=== PATIENT | male | born 1945 | race Caucasian/White ===

== ENCOUNTER → 2016-06-30 | Outpatient (CLI) | payer OTHER ==
[~2016-06-30] MED LIST: DYZ PO; LISI-461 PO
[2016-06-30 13:29] LABS: ESTIMATED AVERAGE GLUCOSE 140 mg/dl; HA1C FLAG Normal (Normal)
[2016-06-30 13:35] LABS: ALT/SGPT 48 U/L (12-78); AST/SGOT 50 U/L (15-37); BLOOD UREA NITROGEN 12 mg/dl (7-18); BUN/CREATININE RATIO 14.1 (10-20); CALCIUM 8.9 mg/dl (8.5-10.1); CARBON DIOXIDE 29 mmol/L (21-32); CHLORIDE 103 mmol/L (98-107); CREATININE 0.88 mg/dl (0.60-1.40); GLUCOSE 109 mg/dl (70-99); POTASSIUM 4.2 mmol/L (3.5-5.1); SODIUM 137 mmol/L (136-145)
[2016-06-30 13:38] LABS: ALB/GLOB RATIO 0.8 (0.9-2); ALKALINE PHOSPHATASE 136 U/L (45-117); CHOLESTEROL 159 mg/dl (0-200); CHOLESTEROL/HDL RATIO 4.3; HDL CHOLESTEROL 37 mg/dl; LDL CHOLESTEROL CALCULATED 94 mg/dl; TRIGLYCERIDES 139 mg/dl (0-150); VERY LOW DENSITY LIPOPROT CALC 28 mg/dl
== END | disposition home or self-care (01) ==
LOC: C.LABPVFM 09:15
PROVIDERS: ATTEND Nurse Practitioner
DX: E11.9 Type 2 diabetes mellitus without complications (principal); I10 Essential (primary) hypertension; E78.5 Hyperlipidemia, unspecified; Z11.59 Encounter for screening for other viral diseases

== ENCOUNTER → 2017-01-04 | Outpatient (CLI) | payer OTHER ==
[2017-01-04 13:15] LABS: ALT/SGPT 58 U/L (12-78); AST/SGOT 66 U/L (15-37); BLOOD UREA NITROGEN 11 mg/dl (7-18); BUN/CREATININE RATIO 14.3 (10-20); CALCIUM 8.8 mg/dl (8.5-10.1); CARBON DIOXIDE 23 mmol/L (21-32); CHLORIDE 106 mmol/L (98-107); CREATININE 0.79 mg/dl (0.60-1.40); GLUCOSE 118 mg/dl (70-99); POTASSIUM 4.2 mmol/L (3.5-5.1); SODIUM 137 mmol/L (136-145)
[2017-01-04 13:18] LABS: ALB/GLOB RATIO 0.8 (0.9-2); ALKALINE PHOSPHATASE 133 U/L (45-117)
[2017-01-04 14:20] LABS: ESTIMATED AVERAGE GLUCOSE 154 mg/dl; HA1C FLAG Normal (Normal)
== END | disposition home or self-care (01) ==
LOC: C.LABPVFM 09:02
PROVIDERS: ATTEND Nurse Practitioner Family
DX: E11.9 Type 2 diabetes mellitus without complications (principal); R74.8 Abnormal levels of other serum enzymes

== ENCOUNTER → 2017-07-05 | Outpatient (CLI) | payer OTHER ==
[2017-07-05 13:32] LABS: HEMOGLOBIN A1C 6.7 % (4.5-5.6)
[2017-07-05 13:52] LABS: ALBUMIN 3.6 gm/dl (3.4-5.0); BLOOD UREA NITROGEN 13 mg/dl (7-18); CALCIUM 9.1 mg/dl (8.5-10.1); CARBON DIOXIDE 24 mmol/L (21-32); CHOLESTEROL 150 mg/dl (0-200); CREATININE 0.88 mg/dl (0.60-1.40); GLUCOSE 115 mg/dl (70-99); POTASSIUM 4.2 mmol/L (3.5-5.1); SODIUM 137 mmol/L (136-145); URIC ACID 5.6 mg/dl (2.6-7.2)
[2017-07-05 13:58] LABS: ALKALINE PHOSPHATASE 106 U/L (45-117); ALT/SGPT 52 U/L (12-78); AST/SGOT 70 U/L (15-37); LDL CHOLESTEROL CALCULATED 88 mg/dl; TOTAL PROTEIN 7.5 gm/dl (6.4-8.2)
== END | disposition home or self-care (01) ==
LOC: C.LABPVFM 09:26
PROVIDERS: ATTEND Nurse Practitioner
DX: E11.9 Type 2 diabetes mellitus without complications (principal); E78.5 Hyperlipidemia, unspecified; E78.1 Pure hyperglyceridemia; I10 Essential (primary) hypertension; R74.8 Abnormal levels of other serum enzymes; M10.9 Gout, unspecified

== ENCOUNTER → 2017-07-31 | Outpatient (CLI) | payer OTHER ==
[2017-07-31 18:21] LABS: ALBUMIN 3.5 gm/dl (3.4-5.0); TOTAL PROTEIN 7.8 gm/dl (6.4-8.2)
== END | disposition home or self-care (01) ==
LOC: C.LABPVFM 15:22
PROVIDERS: ATTEND Nurse Practitioner
DX: R74.8 Abnormal levels of other serum enzymes (principal)

== ENCOUNTER 2022-06-18 11:40 | Inpatient (IN) ==
[2022-06-18] MEDS ORDERED: ACETAMINOPHEN 1,000 MG/100 ML VIAL IV STA (12:03)
[2022-06-18] MEDS ORDERED: SODIUM CHLORIDE 0.9% 500 ML IV ONE (12:03)
[2022-06-18] MEDS ORDERED: OPTIRAY 320 500ml IV ONE (12:26)
--- NOTE | 2022-06-18 12:27 | Emergency Department Note ---
Impression & Plan Complete heart block, Elevated troponin, Neck pain, Shortness of breath ED Provider Note NAME: LAKEISHA LEAL AGE: 76 SEX: M ARRIVES VIA: Walk-In INFORMANT: Patient ED PROVIDER(S): John Armstrong MD CHIEF COMPLAINT: Dizziness, neck/chest pain PLAN: Disposition: Admit MEDICAL DECISION MAKING: The patient is a pleasant 76-year-old gentleman with a past medical history of hypertension, diabetes who presents to the emergency department via walk-in, accompanied by his for evaluation of worsening lightheadedness and neck and chest pain in the setting of having mild cough and congestion over the past couple of weeks. He reports his neck pain and chest pain has been ongoing since shortly after his cough and has continued to worsen. He denies any acute wo rsening today but reports they were concerned due to the degree of his symptoms. He denies any fevers, nausea, vomiting or diarrhea. On arrival to triage, the patient's heart rate was noted to be in the 30s and while he was mentating well and appeared well blood pressure could not be obtained but upon arrival to the critical care bay did have a blood pressure in the 150s-60s. Respiratory rate within normal limits and O2 saturation 94% and greater on room air. EKG is consistent with third-degree/complete heart block with complete A-V dissociation. No overt ST elevation or depression. Limited bedside cardiac ultrasound was performed and there was no overt pericardial effusion. Complete A-V dissociation is also noted. I-STAT lab results demonstrate K of 4.4 and creatinine of 1.3. Given the patient's neck and chest pain with new complete heart block CTA imaging was ordered. Pressure and mentation remained stable and still initial medications or pacing was deferred. WBC and platelets within normal limits. H/H proximate to prior values. Chemistry without metabolic acidosis. Electrolytes and LFTs without significant abnormality. Initial high-sensitivity troponin 115, nonspecific in the setting of complete heart block which may have been present for over a week. Lipase is not elevated. Procalcitonin is not elevated. TSH is elevated at 5 however free T4 within normal limits. UA without convincing evidence of infection. CT of the head and CTA of the head and neck were performed and were negative for acute findings. CTA of the chest was performed and was negative for acute aortic pathology. Note is made of dilated pulmonary trunk measuring 51 mm in diameter. While patient remained hemodynamically stable given no reversible causes identified for the patient's complete heart block a trial of atropine was administered. This did result in very transient resolution of heart block lasting less than a minute before returning. Case was discussed with interventional cardiology, Dr. Jiménez. Appreciate consultation and recommendations and evaluation at the bedside. Patient was taken to the [facility] for transvenous pacer and heart catheterization. Case was discussed with Dr. Fong [facility] [place] hospitalist, who will evaluate the patient for admission. Triage Nursing notes reviewed and agree them. Prior/outside medical records reviewed Vital Signs: reviewed Differential diagnosis: Benign positional vertigo, dehydration, hypovolemia, anemia, tumor, infection, hypoglycemia, electrolyte abnormalities, cardiac sources, intracerebral event, toxicologic, neurologic, as well as other pathologies. ER treatment provided: See below. Diagnostics interpreted by me: ECG: Complete heart block with idioventricular rhythm, 34 bpm, no overt ST elevation or depression. Cardiac Monitoring: An order for continuous cardiac monitoring was placed and demonstrated Complete heart block with idioventricular rhythm, 34 bpm, PVCs. Laboratory studies: See below Imaging studies: See below Consultation(s): Dr. Jiménez, [place] Interventional cardiology. Dr. Fong [facility] [place] hospitalist. HPI: The patient is a pleasant 76-year-old gentleman with a past medical history of hypertension, diabetes who presents to the emergency department via walk-in, accompanied by his for evaluation of worsening lightheadedness and neck and chest pain in the setting of having mild cough and congestion over the past couple of weeks. He reports his neck pain and chest pain has been ongoing since shortly after his cough and has continued to worsen. He denies any acute worsening today but reports they were concerned due to the degree of his symptoms. He denies any fevers, nausea, vomiting or diarrhea. ROS: See above HPI for pertinent positives & negatives. A total of 10 systems reviewed and were otherwise negative. VITALS:See Below PHYSICAL EXAMINATION: GENERAL: Awake, alert, fatigued-appearing, in no distress HENT: Normocephalic, atraumatic. Oropharynx with dry mucous membranes and otherwise unremarkable. EYES: Normal conjunctiva. Sclera non-icteric. NECK: Supple. No nuchal rigidity. FROM. No JVD. Prominent thyroid. RESPIRATORY: Clear to auscultation. CARDIAC: Bradycardic rate, regular rhythm. Extremities warm and well perfused. Pulses equal. ABDOMEN: Soft, non-distended. No tenderness to palpation. No rebound or gu arding. No masses. RECTAL: Deferred. MUSCULOSKELETAL: Chest examination reveals no tenderness. The back is symmetrical on inspection without obvious abnormality. There is no CVA tenderness to palpation. No joint edema. LOWER EXTREMITIES: Calves are equal size bilaterally and non-tender. No edema. No discoloration. NEURO: Normal sensorium. No sensory or motor deficits noted. SKIN: No rash or jaundice noted. ED COURSE: Critical Care: I have personally spent greater than 75 minutes of critical care time in the direct management of this patient. This includes bedside care, interpretation of diagnostic studies, and testing, discussion with consultants, patient, and fa brittney members, and other required patient management activities. This 75 minutes is in excess of all separately billable procedures. 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 Family History Other No family history of adverse response to anesthesia Denies family history of Ovarian cancer Prostate cancer Myocardial infarction Breast cancer Colorectal cancer Social History Smoking Status: Never smoker Second Hand Exposure: No; Hx Alcohol Use: Yes Alcohol type: beer Hx Substance Use: No Preferred Language: Hungarian Communication Ability: Effective [employer] Wiring Technician Required: No Beliefs That Will Affect Care: None marital status: Current Living Situation: Spouse current occupational status: retired Feels Safe at Home: Yes Dental Care, Regularly: No Seatbelt Use: always Sunscreen Use: Yes Assistive Devices: Glasses Allergies Allergies Allergy/AdvReac Type Severity Reaction Status Date / Time No Known Allergies Allergy Unknown Verified 06/18/22 14:25 Home Meds Home Medications Medication Instructions Recorded Confirmed lisinopril 20 mg tablet 20 mg PO QPM 06/18/22 06/18/22 metformin 500 mg tablet,extended 1,000 mg PO QPM 06/18/22 06/18/22 release 24 hr Results & Data (ED) Vital Signs Vital Signs - 24 hr 06/18/22 11:42 06/18/22 11:59 06/18/22 11:57 Temperature 36.4 C L Temperature Source Temporal Artery Scan Pulse Rate 36 L 34 L Pulse Rate from SpO2 Sensor 34 L Respiratory Rate 20 20 Respiratory Effort / Characteristics Non-Labored Spontaneous Respiratory Depth Normal Respiratory Pattern Regular Blood Pressure 158/64 H Blood Pressure Mean 95 Pulse Oximetry 96 94 Oxygen Delivery Method Room Air Room Air Sepsis Recent Fever Within 48 Hours No Sepsis New/Unexplained Change in Mental Status No Sepsis Action Taken by Nursing No Action Required 06/18/22 12:17 06/18/22 12:37 06/18/22 12:46 Temperature Temperature Source Pulse Rate 34 L 32 L 31 L Pulse Rate from SpO2 Sensor Respiratory Rate 14 13 16 Respiratory Effort / Characteristics Respiratory Depth Respiratory Pattern Blood Pressure 144/57 H 145/59 H 131/58 L Blood Pressure Mean 86 87 82 Pulse Oximetry 96 94 95 Oxygen Delivery Method Room Air Room Air Room Air Sepsis Recent Fever Within 48 Hours Sepsis New/Unexplained Change in Mental Status Sepsis Action Taken by Nursing 06/18/22 13:01 06/18/22 13:16 06/18/22 13:31 Temperature Temperature Source Pulse Rate 31 L 46 L 30 L Pulse Rate from SpO2 Sensor Respiratory Rate 14 16 13 Respiratory Effort / Characteristics Respiratory Depth Respiratory Pattern Blood Pressure 148/67 H 156/68 H 130/56 L Blood Pressure Mean 94 97 80 Pulse Oximetry 93 95 90 Oxygen Delivery Method Room Air Room Air Room Air Sepsis Recent Fever Within 48 Hours Sepsis New/Unexplained Change in Mental Status Sepsis Action Taken by Nursing 06/18/22 13:46 06/18/22 14:01 Temperature Temperature Source Pulse Rate 30 L 30 L Pulse Rate from SpO2 Sensor Respiratory Rate 13 12 Respiratory Effort / Characteristics Respiratory Depth Respiratory Pattern Blood Pressure 144/60 H 134/55 L Blood Pressure Mean 88 81 Pulse Oximetry 94 94 Oxygen Delivery Method Room Air Room Air Sepsis Recent Fever Within 48 Hours Sepsis New/Unexplained Change in Mental Status Sepsis Action Taken by Nursing Laboratory Data Attestation: I reviewed the patient's lab results. 06/18/22 12:04 06/18/22 12:04 Lab Results 06/18/22 06/18/22 06/18/22 Range/Units 12:04 12:04 12:04 WBC 8.34 (4.8-10.8) K/ul RBC 4.40 L (4.70-6.10) M/uL Hgb 13.7 L (14.0-18.0) g/dl POC Hgb (14.0-18.0) g/dl Hct 41.0 L (42.0-52.0) % POC Hct (42-52) % MCV 93.2 (80.0-100.0) fL MCH 31.1 (25.0-34.0) pg MCHC 33.4 (32.0-36.0) g/dL RDW Std Deviation 46.2 (36.4-46.3) fL RDW Coeff of Timbo 13.6 (11.5-14.5) % Plt Count 237 (130-400) K/uL MPV 10.8 (9.4-12.4) fL Immature Gran % (Auto) 0.2 % Neut % (Auto) 79.7 % Lymph % (Auto) 10.9 % Bullitt % (Auto) 7.3 % Eos % (Auto) 1.3 % Baso % (Auto) 0.6 % Neut # (Auto) 6.64 H (1.40-6.50) K/uL Lymph # (Auto) 0.91 L (1.2-3.4) K/uL Bullitt # (Auto) 0.61 H (0.11-0.59) K/uL Eos # (Auto) 0.11 (0-0.50) K/uL Baso # (Auto) 0.05 (0-0.2) K/uL Immature Gran # (Auto) 0.02 (0.01-0.20) K/uL Toxic Vacuolation 1+ Platelet Estimate Normal (Normal) PT 11.4 (9.0-12.0) Seconds INR 1.1 (0.9-1.1) POC Sodium (135-144) mmol/L Sodium 140 (136-145) mmol/L POC Potassium (3.3-5.0) mmol/L Potassium 4.4 (3.5-5.1) mmol/L POC Chloride (101-112) mmol/L Chloride 109 H (98-107) mmol/L Carbon Dioxide 22 (21-32) mmol/L POC Total CO2 (24-31) mmol/L Anion Gap 9 (3-11) POC Anion Gap (16-25) mmol/L POC BUN (7-18) mg/dl BUN 29 H (6-23) mg/dl Creatinine 1.23 (0.6-1.4) mg/dl POC Creatinine (0.6-1.3) mg/dl Est Cr Clr Drug Dosing 60.6 ml/min Est GFR ( Amer) 65.7 ml/min Est GFR (Non-Af Amer) 56.7 ml/min BUN/Creatinine Ratio 23.6 H (10-20) Glucose 100 H (70-99(Fasting)) mg/dl POC Glucose (other) (70-99) mg/dl Calcium 9.0 (8.6-10.3) mg/dl POC Ioniz Calcium Cuca (1.12-1.32) mmol/l Phosphorus 4.4 (2.5-4.9) mg/dl Magnesium 2.1 (1.7-2.4) mg/dl Total Bilirubin 0.8 (0.2-1.0) mg/dl AST 25 (13-39) U/L ALT 17 (7-52) U/L Alkaline Phosphatase 89 (34-104) U/L Troponin I High Sens 115.3 H* (0-20) pg/ml Total Protein 7.6 (6.0-8.3) gm/dl Albumin 4.1 (3.4-5.0) gm/dl Globulin 3.5 (2.5-4.0) gm/dl Albumin/Globulin Ratio 1.2 (0.9-2) Lipase 39 (11-82) U/L Procalcitonin (0-0.5) ng/ml TSH (0.300-4.500) uIu/ml Free T4 (0.61-1.60) ng/dl Lyme Disease IgG Ab (Negative) Lyme Disease IgM Ab (Negative) SARS-CoV-2, RNA, NAAT (NEGATIVE) 06/18/22 06/18/22 06/18/22 Range/Units 12:04 12:04 12:04 WBC (4.8-10.8) K/ul RBC (4.70-6.10) M/uL Hgb (14.0-18.0) g/dl POC Hgb (14.0-18.0) g/dl Hct (42.0-52.0) % POC Hct (42-52) % MCV (80.0-100.0) fL MCH (25.0-34.0) pg MCHC (32.0-36.0) g/dL RDW Std Deviation (36.4-46.3) fL RDW Coeff of Timbo (11.5-14.5) % Plt Count (130-400) K/uL MPV (9.4-12.4) fL Immature Gran % (Auto) % Neut % (Auto) % Lymph % (Auto) % Bullitt % (Auto) % Eos % (Auto) % Baso % (Auto) % Neut # (Auto) (1.40-6.50) K/uL Lymph # (Auto) (1.2-3.4) K/uL Bullitt # (Auto) (0.11-0.59) K/uL Eos # (Auto) (0-0.50) K/uL Baso # (Auto) (0-0.2) K/uL Immature Gran # (Auto) (0.01-0.20) K/uL Toxic Vacuolation Platelet Estimate (Normal) PT (9.0-12.0) Seconds INR (0.9-1.1) POC Sodium (135-144) mmol/L Sodium (136-145) mmol/L POC Potassium (3.3-5.0) mmol/L Potassium (3.5-5.1) mmol/L POC Chloride (101-112) mmol/L Chloride (98-107) mmol/L Carbon Dioxide (21-32) mmol/L POC Total CO2 (24-31) mmol/L Anion Gap (3-11) POC Anion Gap (16-25) mmol/L POC BUN (7-18) mg/dl BUN (6-23) mg/dl Creatinine (0.6-1.4) mg/dl POC Creatinine (0.6-1.3) mg/dl Est Cr Clr Drug Dosing ml/min Est GFR ( Amer) ml/min Est GFR (Non-Af Amer) ml/min BUN/Creatinine Ratio (10-20) Glucose (70-99(Fasting)) mg/dl POC Glucose (other) (70-99) mg/dl Calcium (8.6-10.3) mg/dl POC Ioniz Calcium Cuca (1.12-1.32) mmol/l Phosphorus (2.5-4.9) mg/dl Magnesium (1.7-2.4) mg/dl Total Bilirubin (0.2-1.0) mg/dl AST (13-39) U/L ALT (7-52) U/L Alkaline Phosphatase (34-104) U/L Troponin I High Sens (0-20) pg/ml Total Protein (6.0-8.3) gm/dl Albumin (3.4-5.0) gm/dl Globulin (2.5-4.0) gm/dl Albumin/Globulin Ratio (0.9-2) Lipase (11-82) U/L Procalcitonin 0.05 (0-0.5) ng/ml TSH 5.095 H (0.300-4.500) uIu/ml Free T4 0.91 (0.61-1.60) ng/dl Lyme Disease IgG Ab Negative (Negative) Lyme Disease IgM Ab Negative (Negative) SARS-CoV-2, RNA, NAAT (NEGATIVE) 06/18/22 06/18/22 Range/Units 12:06 12:17 WBC (4.8-10.8) K/ul RBC (4.70-6.10) M/uL Hgb (14.0-18.0) g/dl POC Hgb 13.9 L (14.0-18.0) g/dl Hct (42.0-52.0) % POC Hct 41 L (42-52) % MCV (80.0-100.0) fL MCH (25.0-34.0) pg MCHC (32.0-36.0) g/dL RDW Std Deviation (36.4-46.3) fL RDW Coeff of Timbo (11.5-14.5) % Plt Count (130-400) K/uL MPV (9.4-12.4) fL Immature Gran % (Auto) % Neut % (Auto) % Lymph % (Auto) % Bullitt % (Auto) % Eos % (Auto) % Baso % (Auto) % Neut # (Auto) (1.40-6.50) K/uL Lymph # (Auto) (1.2-3.4) K/uL Bullitt # (Auto) (0.11-0.59) K/uL Eos # (Auto) (0-0.50) K/uL Baso # (Auto) (0-0.2) K/uL Immature Gran # (Auto) (0.01-0.20) K/uL Toxic Vacuolation Platelet Estimate (Normal) PT (9.0-12.0) Seconds INR (0.9-1.1) POC Sodium 143 (135-144) mmol/L Sodium (136-145) mmol/L POC Potassium 4.4 (3.3-5.0) mmol/L Potassium (3.5-5.1) mmol/L POC Chloride 108 (101-112) mmol/L Chloride (98-107) mmol/L Carbon Dioxide (21-32) mmol/L POC Total CO2 20 L (24-31) mmol/L Anion Gap (3-11) POC Anion Gap 20.0 (16-25) mmol/L POC BUN 27 H (7-18) mg/dl BUN (6-23) mg/dl Creatinine (0.6-1.4) mg/dl POC Creatinine 1.3 (0.6-1.3) mg/dl Est Cr Clr Drug Dosing ml/min Est GFR ( Amer) ml/min Est GFR (Non-Af Amer) ml/min BUN/Creatinine Ratio (10-20) Glucose (70-99(Fasting)) mg/dl POC Glucose (other) 101 H (70-99) mg/dl Calcium (8.6-10.3) mg/dl POC Ioniz Calcium Cuca 1.17 (1.12-1.32) mmol/l Phosphorus (2.5-4.9) mg/dl Magnesium (1.7-2.4) mg/dl Total Bilirubin (0.2-1.0) mg/dl AST (13-39) U/L ALT (7-52) U/L Alkaline Phosphatase (34-104) U/L Troponin I High Sens (0-20) pg/ml Total Protein (6.0-8.3) gm/dl Albumin (3.4-5.0) gm/dl Globulin (2.5-4.0) gm/dl Albumin/Globulin Ratio (0.9-2) Lipase (11-82) U/L Procalcitonin (0-0.5) ng/ml TSH (0.300-4.500) uIu/ml Free T4 (0.61-1.60) ng/dl Lyme Disease IgG Ab (Negative) Lyme Disease IgM Ab (Negative) SARS-CoV-2, RNA, NAAT NEGATIVE (NEGATIVE) Administered Medications Insulin Aspart (Insulin Aspart Per Unit Charge) 0 units SC ACHS NILAY Stop: 07/18/22 20:59 Last Admin: 06/18/22 20:08 Dose: Not Given Documented By: PATRICIO Lisinopril (Lisinopril 20 Mg Tab) 20 mg PO HS NILAY Stop: 07/18/22 20:59 Last Admin: 06/18/22 20:09 Dose: 20 mg Documented By: PATRICIO Discontinued Medications Atropine Sulfate (Atropine Sulfate 0.1 Mg/Ml 10ml Syr) 1 mg IV NOW STA Stop: 06/18/22 13:10 Last Admin: 06/18/22 13:13 Dose: 1 mg Documented By: GILDARDO Atropine Sulfate (Atropine Sulfate 0.1 Mg/Ml 5ml Syr) 1 mg IV NOW STA Stop: 06/18/22 14:09 Last Admin: 06/18/22 14:10 Dose: 1 mg Documented By: GILDARDO Fentanyl Citrate (Fentanyl Citrate Pf 100 Mcg/2 Ml Vial) 50 mcg IV NOW STA Stop: 06/18/22 12:48 Last Admin: 06/18/22 12:51 Dose: 50 mcg Documented By: GILDARDO Fentanyl Citrate (Fentanyl Citrate Pf 100 Mcg/2 Ml Vial) Confirm Administered Dose 100 mcg .ROUTE .STK-MED ONE Stop: 06/18/22 14:12 Last Increment: 06/18/22 15:05 Dose: 25 mcg Documented By: Mason Furosemide (Furosemide 40 Mg/4 Ml Vial) Confirm Administered Dose 40 mg IV .STK- MED ONE Stop: 06/18/22 15:08 Last Admin: 06/18/22 15:25 Dose: 20 mg Documented By: Mason Heparin Sodium (Porcine) (Heparin (Porcine) 1000 Unit/Ml 10 Ml (Flower [employer] Manager Use Only)) Confirm Administered Dose 10,000 units .ROUTE .STK-MED ONE Stop: 06/18/22 14:12 Last Admin: 06/18/22 14:52 Dose: 5,000 units Documented By: AGAPITO Heparin Sodium/Sodium Chloride (Heparin In Nss Infusion 1000 Unit/500 Ml (2 U/Ml) Bag) Confirm Administered Dose 3,000 units IV .STK-MED ONE Stop: 06/18/22 14:13 Last Admin: 06/18/22 14:46 Dose: 3,000 units Documented By: JYOTHI Sodium Chloride (Nss) 500 mls @ 999 mls/hr IV .Q31M ONE Stop: 06/18/22 12:33 Last Infusion: 06/18/22 12:48 Dose: 0 mls/hr Documented By: Admin: 06/18/22 12:13 Dose: 999 mls/hr Documented By: GILDARDO Acetaminophen (Ofirmev) 1,000 mg in 100 mls @ 400 mls/hr IV NOW STA Stop: 06/18/22 12:17 Last Infusion: 06/18/22 12:44 Dose: 0 mls/hr Documented By: Admin: 06/18/22 12:14 Dose: 400 mls/hr Documented By: GILDARDO Ioversol (Optiray 320 500ml) 115 ml IV ONCE ONE Stop: 06/18/22 12:27 Last Admin: 06/18/22 12:26 Dose: 115 ml Documented By: MARRY Lidocaine HCl (Lidocaine 1% Local 20 Ml Vial) Confirm Administered Dose 2 ml .ROUTE .STK-MED ONE Stop: 06/18/22 14:11 Last Admin: 06/18/22 14:40 Dose: 2 ml Documented By: JYOTHI Midazolam HCl (Midazolam Hcl 1 Mg/Ml 2ml Vial) Confirm Administered Dose 2 mg .ROUTE .STK-MED ONE Stop: 06/18/22 14:12 Last Admin: 06/18/22 14:45 Dose: 2 mg Documented By: JOSE A Miscellaneous (Icu Protocol For Hyperglycemia) 1 each N/A ACHS NILAY Stop: 06/20/22 16:29 Last Admin: 06/18/22 16:38 Dose: 1 each Documented By: ETELVINA Nicardipine HCl (Nicardipine Hcl Inj 2.5 Mg/Ml 10 Ml Amp) Confirm Administered Dose 25 mg .ROUTE .STK-MED ONE Stop: 06/18/22 14:12 Last Admin: 03/26/23 14:46 Dose: 25 mg Documented By: JYOTHI Nitroglycerin/Dextrose (Nitroglycerin/D5w 100mcg/Ml 20ml Syr) Confirm Ad ministered Dose 2,000 mcg .ROUTE .STK-MED ONE Stop: 06/18/22 14:13 Last Admin: 06/18/22 14:46 Dose: 2,000 mcg Documented By: JYOTHI Imaging Data Radiologist's Impression: Chest X-Ray 06/18/22 12:01 XR chest 1V portable CLINICAL HISTORY: Chest pain, nonspecific TECHNIQUE: Single frontal radiograph of the chest was obtained. Comparison: Comparison is made to chest radiograph 10/25/2010 FINDINGS: Median sternotomy wires are unchanged. Cardiomegaly is noted. The lungs are clear. No evidence of pleural effusion or pneumothorax. IMPRESSION: Faint bibasilar airspace opacities which may represent atelectasis, pneumonia, and/or aspiration. ACT 112: Negative or not required by law. Electronically signed by: Ramakrishna Hensley M.D. 06/18/2022 12:36 PM Chest CTA 06/18/22 12:03 CT angio chest dissec wo/w con CLINICAL HISTORY: chest/neck/head pain, Comp HB TECHNIQUE: Multidetector row helical CT of the chest was performed before and after injection of IV contrast. Coronal and sagittal reformations were obtained. Automated dose lowering techniques and/or adjustment according to patient size were utilized for this exam. CT DOSE: 3388.62 mGy.cm Comparison: Comparison is made to CT chest 07/30/2018 FINDINGS: Lungs and pleura: Trace bilateral pleural effusions and atelectasis are seen. Calcified pleural plaques are noted. Heart and pericardium: There is cardiomegaly without evidence of pericardial effusion. Vessels: Pulmonary trunk measures 51 mm in diameter. Within limits of a nondedicated exam, no pulmonary embolus is seen. No aortic dissection, the great vessels of the aorta are patent. Severe atherosclerotic disease is seen. Mediastinum and yasmin: Subcentimeter lymph nodes are seen. Chest wall and lower neck: Unremarkable. Abdomen: Nodular contour of the liver is seen which can be seen with cirrhosis. Bones: Degenerative changes in the thoracic spine. IMPRESSION: 1. No acute abnormality and in particular no evidence of acute aortic injury. 2. Prominent patient trunk dictation. 3. Additional findings as above. ACT 112: Negative or not required by law. Electronically signed by: Ramakrishna Hensley M.D. 06/18/2022 12:[address] 06/18/22 12:03 CT angio neck with con, CT angio head w con, CT head/brain wo con CLINICAL HISTORY: chest/neck/head pain, Comp HB TECHNIQUE: Contiguous axial CT images of the head were acquired from the base of the skull to the vertex without intravenous contrast administration. CT angiography of the head and neck was performed following intravenous administration of iodinated contrast. Coronal and sagittal MIPS were obtained from the axial data set and were submitted for review. Automated dose lowering techniques and/or adjustment according to patient size were utilized for this examination. All measurements were calculated based on NASCET criteria. Comparison: None available at the time of this dictation. FINDINGS: CT head: There is no acute intracranial hemorrhage or evidence of acute territorial infarction. No shift of the midline structures, mass effect, or extra-axial abnormalities are shown. Mild right maxillary sinus disease is noted. Lungs and soft tissues are unremarkable. CTA Neck: A 3 vessel aortic arch is shown. There is no significant atherosclerotic plaque in the aortic arch or the origins of the innominate, left common carotid, and left subclavian arteries. The common carotid, external carotid, cervical segments of the internal carotid arteries, and the cervical segments of the vertebral arteries are patent without hemodynamically significant stenosis. The left vertebral artery is dominant. CTA Head: The anterior and posterior cerebral circulations are patent. No hemodynamically significant stenosis, aneurysm, dissection, or arteriovenous malformation is shown. IMPRESSION: 1. No acute intracranial hemorrhage, evidence of acute territorial infarction, or other acute intracranial disease process. 2. No occlusion, hemodynamically significant stenosis, or dissection in the major cervical arteries. 3. No occlusion, hemodynamically significant stenosis, aneurysm, dissection, or arteriovenous malformation in the major intracranial arteries. Assessment of stenosis of the internal carotid arteries is based on NASCET criteria. ACT 112: Negative or not required by law. Electronically signed by: Ramakrishna Hensley M.D. 06/18/2022 1:02 PM Head CTA 06/18/22 12:03 CT angio neck with con, CT angio head w con, CT head/brain wo con CLINICAL HISTORY: chest/neck/head pain, Comp HB TECHNIQUE: Contiguous axial CT images of the head were acquired from the base of the skull to the vertex without intravenous contrast administration. CT angiography of the head and neck was performed following intravenous administration of iodinated contrast. Coronal and sagittal MIPS were obtained from the axial data set and were submitted for review. Automated dose lowering techniques and/or adjustment according to patient size were utilized for this examination. All measurements were calculated based on NASCET criteria. Comparison: None available at the time of this dictation. FINDINGS: CT head: There is no acute intracranial hemorrhage or evidence of acute territorial infarction. No shift of the midline structures, mass effect, or extra-axial abnormalities are shown. Mild right maxillary sinus disease is noted. Lungs and soft tissues are unremarkable. CTA Neck: A 3 vessel aortic arch is shown. There is no significant atherosclerotic plaque in the aortic arch or the origins of the innominate, left common carotid, and left subclavian arteries. The common carotid, external carotid, cervical segments of the internal carotid arteries, and the cervical segments of the vertebral arteries are patent without hemodynamically significant stenosis. The left vertebral artery is dominant. CTA Head: The anterior and posterior cerebral circulations are patent. No hemodynamically significant stenosis, aneurysm, dissection, or arteriovenous malformation is shown. IMPRESSION: 1. No acute intracranial hemorrhage, evidence of acute territorial infarction, or other acute intracranial disease process. 2. No occlusion, hemodynamically significant stenosis, or dissection in the major cervical arteries. 3. No occlusion, hemodynamically significant stenosis, aneurysm, dissection, or arteriovenous malformation in the major intracranial arteries. Assessment of stenosis of the internal carotid arteries is based on NASCET criteria. ACT 112: Negative or not required by law. Electronically signed by: Ramakrishna Hensley M.D. 06/18/2022 1:02 PM Neck CTA 06/18/22 12:03 CT angio neck with con, CT angio head w con, CT head/brain wo con CLINICAL HISTORY: chest/neck/head pain, Comp HB TECHNIQUE: Contiguous axial CT images of the head were acquired from the base of the skull to the vertex without intravenous contrast administration. CT angiography of the head and neck was performed following intravenous administration of iodinated contrast. Coronal and sagittal MIPS were obtained fr om the axial data set and were submitted for review. Automated dose lowering techniques and/or adjustment according to patient size were utilized for this examination. All measurements were calculated based on NASCET criteria. Comparison: None available at the time of this dictation. FINDINGS: CT head: There is no acute intracranial hemorrhage or evidence of acute territorial infarction. No shift of the midline structures, mass effect, or extra-axial abnormalities are shown. Mild right maxillary sinus disease is noted. Lungs and soft tissues are unremarkable. CTA Neck: A 3 vessel aortic arch is shown. There is no significant atherosclerotic plaque in the aortic arch or the origins of the innominate, left common carotid, and left subclavian arteries. The common carotid, external carotid, cervical segments of the internal carotid arteries, and the cervical segments of the vertebral arteries are patent without hemodynamically significant stenosis. The left vertebral artery is dominant. CTA Head: The anterior and posterior cerebral circulations are patent. No hemodynamically significant stenosis, aneurysm, dissection, or arteriovenous malformation is shown. IMPRESSION: 1. No acute intracranial hemorrhage, evidence of acute territorial infarction, or other acute intracranial disease process. 2. No occlusion, hemodynamically significant stenosis, or dissection in the major cervical arteries. 3. No occlusion, hemodynamically significant stenosis, aneurysm, dissection, or arteriovenous malformation in the major intracranial arteries. Assessment of stenosis of the internal carotid arteries is based on NASCET criteria. ACT 112: Negative or not required by law. Electronically signed by: Ramakrishna Hensley M.D. 06/18/2022 1:02 PM Discharge Plan Visit Data Chief Complaint: Cardiac Assessment Stated Complaint: NECK PAIN, DIZZINESS, TROUBLE BREATHING ED Provider: John Armstrong Discharge Problem: Complete heart block, Elevated troponin, Neck pain, Shortness of breath Patient Disposition: Admitted As Inpatient Discharge Instructions Interventions: ED Discharge Assessment Last Done: 06/18/22 14:21
[2022-06-18 12:32] LABS: Albumin Level 4.1 gm/dl (3.4-5.0); Bilirubin,Total 0.8 mg/dl (0.2-1.0); Magnesium 2.1 mg/dl (1.7-2.4); Potassium 4.4 mmol/L (3.5-5.1)
[2022-06-18 12:34] LABS: INR 1.1 (0.9-1.1); Prothrombin Time 11.4 Seconds (9.0-12.0)
[2022-06-18 12:34] LABS: iSTAT Creatinine 1.3 mg/dl (0.6-1.3); iSTAT Hemoglobin 13.9 g/dl (14.0-18.0); iSTAT Ionized Calcium 1.17 mmol/l (1.12-1.32); iSTAT Potassium 4.4 mmol/L (3.3-5.0)
--- NOTE | 2022-06-18 12:37 | XRay Report ---
XR chest 1V portable CLINICAL HISTORY: Chest pain, nonspecific TECHNIQUE: Single frontal radiograph of the chest was obtained. Comparison: Comparison is made to chest radiograph 10/25/2010 FINDINGS: Median sternotomy wires are unchanged. Cardiomegaly is noted. The lungs are clear. No evidence of ple ural effusion or pneumothorax. IMPRESSION: Faint bibasilar airspace opacities which may represent atelectasis, pneumonia, and/or aspiration. ACT 112: Negative or not required by law. Electronically signed by: Ramakrishna Hensley M.D. 06/18/2022 12:36 PM
[2022-06-18 12:38] LABS: Albumin Globulin Ratio 1.2 (0.9-2); BUN Creatinine Ratio 23.6 (10-20); Basophils # (auto) 0.05 K/uL (0-0.2); Basophils % (auto) 0.6 %; Creatinine Clr Calc Pharmacy 60.6 ml/min; Eosinophils # (auto) 0.11 K/uL (0-0.50); Eosinophils % (auto) 1.3 %; Est GFR (African American) 65.7 ml/min; Est GFR (Non-African American) 56.7 ml/min; Globulin 3.5 gm/dl (2.5-4.0); Hemoglobin 13.7 g/dl (14.0-18.0); Immature Granulocytes # (auto) 0.02 K/uL (0.01-0.20); Immature Granulocytes % (auto) 0.2 %; Lymphocytes # (auto) 0.91 K/uL (1.2-3.4); Lymphocytes % (auto) 10.9 %; Mean Corpuscular Hemoglobin 31.1 pg (25.0-34.0); Mean Corpuscular Hgb Conc 33.4 g/dL (32.0-36.0); Mean Corpuscular Volume 93.2 fL (80.0-100.0); Mean Platelet Volume 10.8 fL (9.4-12.4); Monocytes # (auto) 0.61 K/uL (0.11-0.59); Monocytes % (auto) 7.3 %; Neutrophils # (auto) 6.64 K/uL (1.40-6.50); Neutrophils % (auto) 79.7 %; Phosphorus 4.4 mg/dl (2.5-4.9); Platelet Count 237 K/uL (130-400); Platelet Estimate Normal (Normal); RDW Coefficient of Variation 13.6 % (11.5-14.5); RDW Standard Deviation 46.2 fL (36.4-46.3); Total Protein 7.6 gm/dl (6.0-8.3); Toxic Vacuolation 1+; White Blood Count 8.34 K/ul (4.8-10.8)
[2022-06-18] MEDS ORDERED: fentaNYL citrate PF 100 MCG/2 ML VIAL IV STA (12:47)
--- NOTE | 2022-06-18 12:48 | CT Scan Report ---
CT angio chest dissec wo/w con CLINICAL HISTORY: chest/neck/head pain, Comp HB TECHNIQUE: Multidetector row helical CT of the chest was performed before and after injection of IV c ontrast. Coronal and sagittal reformations were obtained. Automated dose lowering techniques and/or a djustment according to patient size were utilized for this exam. CT DOSE: 3388.62 mGy.cm Comparison: Comparison is made to CT chest 07/30/2018 FINDINGS: Lungs and pleura: Trace bilateral pleural effusions and atelectasis are seen. Calcified pleural plaqu es are noted. Heart and pericardium: There is cardiomegaly without evidence of pericardial effusion. Vessels: Pulmonary trunk measures 51 mm in diameter. Within limits of a nondedicated exam, no pulmona ry embolus is seen. No aortic dissection, the great vessels of the aorta are patent. Severe atheroscl erotic disease is seen. Mediastinum and yasmin: Subcentimeter lymph nodes are seen. Chest wall and lower neck: Unremarkable. Abdomen: Nodular contour of the liver is seen which can be seen with cirrhosis. Bones: Degenerative changes in the thoracic spine. IMPRESSION: 1. No acute abnormality and in particular no evidence of acute aortic injury. 2. Prominent patient trunk dictation. 3. Additional findings as above. ACT 112: Negative or not required by law. Electronically signed by: Ramakrishna Hensley M.D. 06/18/2022 12:46 PM
--- NOTE | 2022-06-18 13:04 | CT Scan Report ---
CT angio neck with con, CT angio head w con, CT head/brain wo con CLINICAL HISTORY: chest/neck/head pain, Comp HB TECHNIQUE: Contiguous axial CT images of the head were acquired from the base of the skull to the lilian mira without intravenous contrast administration. CT angiography of the head and neck was performed f ollowing intravenous administration of iodinated contrast. Coronal and sagittal MIPS were obtained fr om the axial data set and were submitted for review. Automated dose lowering techniques and/or adjus tment according to patient size were utilized for this examination. All measurements were calculated based on NASCET criteria. Comparison: None available at the time of this dictation. FINDINGS: CT head: There is no acute intracranial hemorrhage or evidence of acute territorial infarction. No sh ift of the midline structures, mass effect, or extra-axial abnormalities are shown. Mild right maxill chyna sinus disease is noted. Lungs and soft tissues are unremarkable. CTA Neck: A 3 vessel aortic arch is shown. There is no significant atherosclerotic plaque in the aor tic arch or the origins of the innominate, left common carotid, and left subclavian arteries. The co mmon carotid, external carotid, cervical segments of the internal carotid arteries, and the cervical segments of the vertebral arteries are patent without hemodynamically significant stenosis. The left vertebral artery is dominant. CTA Head: The anterior and posterior cerebral circulations are patent. No hemodynamically significan t stenosis, aneurysm, dissection, or arteriovenous malformation is shown. IMPRESSION: 1. No acute intracranial hemorrhage, evidence of acute territorial infarction, or other acute intrac ranial disease process. 2. No occlusion, hemodynamically significant stenosis, or dissection in the major cervical arteries. 3. No occlusion, hemodynamically significant stenosis, aneurysm, dissection, or arteriovenous malfor mation in the major intracranial arteries. Assessment of stenosis of the internal carotid arteries is based on NASCET criteria. ACT 112: Negative or not required by law. Electronically signed by: Ramakrishna Hensley M.D. 06/18/2022 1:02 PM
[2022-06-18 13:07] LABS: Thyroid Stimulating Hormone 5.095 uIu/ml (0.300-4.500)
[2022-06-18] MEDS ORDERED: ATROPINE SULFATE 0.1 MG/ML 10ML SYR IV STA (13:09)
[2022-06-18 13:23] LABS: Troponin I High Sensitivity 115.3 pg/ml (0-20)
[2022-06-18 13:32] LABS: Lyme Ab IgG w/WB Rflx Negative (Negative); Lyme Ab IgM w/WB Rflx Negative (Negative)
--- NOTE | 2022-06-18 13:42 | History & Physical Report ---
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 Patient reports diagnosed by his PCP but never had or needed inhalers of any kind. Recommend PCP follow up to consider removal of this diagnosis or PFTs if concerned. (4) Pulmonary valve stenosis: Plan: History of such with open hear surgery performed in 1971 (5) Cirrhosis of liver: Plan: Noted on CT in 2019 and today. Not known to patient. Patient made aware. Recommend outpatient follow up for this. (6) Hypertension: Plan: Will hold his lisinopril while in complete heart block Plan VTE Prophylaxis - deferred due to need for pacemaker insertion Diet - NPO pending temporary pacing wire and cardiac cath, will defer diet to cardiology following this Disposition - to be determined following cardiac cath and pacing wire Admission and Anticipated Discharge Date Admission Date: June 18, 2022 History of Present Illness Chief Complaint: Shortness of breath and dizziness Primary Care Provider: DIEUDONNE Longo is a 76 year old male who presents to the ER with shortness of breath and dizziness. Symptoms have been progressively getting worse over the course of the last 2 weeks and especially the last 2 days. Dizziness is lightheadedness, no vertigo or feeling unbalanced. He denies any chest pain, syncope, orthopnea, PND, palpitations or claudication. No history of coronary artery disease. In the ER he was noted to be in complete heart block with a heart rate in the 30s. BP was normal and patient not having any symptoms at rest. Atropine was not successful. Allergies Allergy/AdvReac Type Severity Reaction Status Date / Time No Known Allergies Allergy Unknown Verified 06/18/22 14:25 Home Medications Medication Instructions Recorded Confirmed Type lisinopril 20 mg tablet 20 mg PO QPM 03/26/23 03/26/23 History metformin 500 mg tablet,extended 1,000 mg PO QPM 06/18/22 06/18/22 History release 24 hr Past Med/Surg History Medical History (Updated 06/18/22 @ 16:25 by Lorenzo Jiménez MD, PhD) Blood in stool Diabetes mellitus, type 2 Surgical History History of eye surgery left eye "cut retina open" History of open heart surgery 1971 @ [facility] [place] "valve was growing shut, went in and opened it up"--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 Family History Other No family history of adverse response to anesthesia Denies family history of Ovarian cancer Prostate cancer Myocardial infarction Breast cancer Colorectal cancer Social History Smoking Status: Former smoker Second Hand Exposure: No; Hx Alcohol Use: Yes Alcohol type: beer Hx Substance Use: No Preferred Language: Austrian Communication Ability: Effective Foam 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 Required: No Beliefs That Will Affect Care: None marital status: Current Living Situation: Spouse current occupational status: retired Feels Safe at Home: Yes Dental Care, Regularly: No Seatbelt Use: always Sunscreen Use: Yes Assistive Devices: Glasses Review of Systems Review of Systems: All systems reviewed & are unremarkable except as noted in HPI & below Physical Exam Constitutional: well developed; + not well nourished and no acute distress ENMT: external ear and nose normal, oropharynx normal Neck: Cushingoid appearance of neck Respiratory: normal respiratory effort Auscultation: + diminished lung sounds (throughout) and + crackles (bibasal); breath sounds present, no rales, no rhonchi and no wheezes Cardiovascular: Rate/Rhythm: regular rate and + bradycardic Heart Sounds: no murmur Extremities: normal capillary refill and + pedal edema; no calf tenderness Gastrointestinal (Abdomen): normal bowel sounds, soft, nontender, no hepatosplenomegaly Musculoskeletal: no cyanosis or clubbing, extremities motor strength 5/5 Skin: no rashes, warm and dry Neurologic: moves all extremities and awake; not confused Psychiatric: A+Ox3, euthymic affect Results & Data Results & Data Vital Signs (Past 12 Hours) Vital Signs Temp Pulse Resp BP Pulse Ox O2 Del Method 06/18/22 13:31 30 L 13 130/56 L 90 Room Air 06/18/22 13:16 46 L 16 156/68 H 95 Room Air 06/18/22 13:01 31 L 14 148/67 H 93 Room Air 06/18/22 12:46 31 L 16 131/58 L 95 Room Air 06/18/22 12:37 32 L 13 145/59 H 94 Room Air 06/18/22 12:17 34 L 14 144/57 H 96 Room Air 06/18/22 11:57 20 158/64 H 94 Room Air 06/18/22 11:59 34 L 06/18/22 11:42 36.4 C L 36 L 20 96 Room Air Laboratory Results Abnormal lab results 06/18/22 06/18/22 06/18/22 Range/Units 12:04 12:04 12:04 RBC 4.40 L (4.70-6.10) M/uL Hgb 13.7 L (14.0-18.0) g/dl POC Hgb (14.0-18.0) g/dl Hct 41.0 L (42.0-52.0) % POC Hct (42-52) % Neut # (Auto) 6.64 H (1.40-6.50) K/uL Lymph # (Auto) 0.91 L (1.2-3.4) K/uL [place] # (Auto) 0.61 H (0.11-0.59) K/uL Chloride 109 H (98-107) mmol/L POC Total CO2 (24-31) mmol/L POC BUN (7-18) mg/dl BUN 29 H (6-23) mg/dl BUN/Creatinine Ratio 23.6 H (10-20) Glucose 100 H (70-99(Fasting)) mg/dl POC Glucose (other) (70-99) mg/dl Troponin I High Sens 115.3 H* (0-20) pg/ml TSH 5.095 H (0.300-4.500) uIu/ml 06/18/22 Range/Units 12:17 RBC (4.70-6.10) M/uL Hgb (14.0-18.0) g/dl POC Hgb 13.9 L (14.0-18.0) g/dl Hct (42.0-52.0) % POC Hct 41 L (42-52) % Neut # (Auto) (1.40-6.50) K/uL Lymph # (Auto) (1.2-3.4) K/uL [place]idan # (Auto) (0.11-0.59) K/uL Chloride (98-107) mmol/L POC Total CO2 20 L (24-31) mmol/L POC BUN 27 H (7-18) mg/dl BUN (6-23) mg/dl BUN/Creatinine Ratio (10-20) Glucose (70-99(Fasting)) mg/dl POC Glucose (other) 101 H (70-99) mg/dl Troponin I High Sens (0-20) pg/ml TSH (0.300-4.500) uIu/ml Diagnostic Findings CT angio neck with con, CT angio head w con, CT head/brain wo con CLINICAL HISTORY: chest/neck/head pain, Comp HB TECHNIQUE: Contiguous axial CT images of the head were acquired from the base of the skull to the vertex without intravenous contrast administration. CT angiography of the head and neck was performed following intravenous administration of iodinated contrast. Coronal and sagittal MIPS were obtained from the axial data set and were submitted for review. Automated dose lowering techniques and/or adjustment according to patient size were utilized for this examination. All measurements were calculated based on NASCET criteria. Comparison: None available at the time of this dictation. FINDINGS: CT head: There is no acute intracranial hemorrhage or evidence of acute territorial infarction. No shift of the midline structures, mass effect, or extra-axial abnormalities are shown. Mild right maxillary sinus disease is noted. Lungs and soft tissues are unremarkable. CTA Neck: A 3 vessel aortic arch is shown. There is no significant atherosclerotic plaque in the aortic arch or the origins of the innominate, left common carotid, and left subclavian arteries. The common carotid, external carotid, cervical segments of the internal carotid arteries, and the cervical segments of the vertebral arteries are patent without hemodynamically sign ificant stenosis. The left vertebral artery is dominant. CTA Head: The anterior and posterior cerebral circulations are patent. No hemodynamically significant stenosis, aneurysm, dissection, or arteriovenous malformation is shown. IMPRESSION: 1. No acute intracranial hemorrhage, evidence of acute territorial infarction, or other acute intracranial disease process. 2. No occlusion, hemodynamically significant stenosis, or dissection in the major cervical arteries. 3. No occlusion, hemodynamically significant stenosis, aneurysm, dissection, or arteriovenous malformation in the major intracranial arteries. CT angio chest dissec wo/w con CLINICAL HISTORY: chest/neck/head pain, Comp HB TECHNIQUE: Multidetector row helical CT of the chest was performed before and af ter injection of IV contrast. Coronal and sagittal reformations were obtained. Automated dose lowering techniques and/or adjustment according to patient size were utilized for this exam. CT DOSE: 3388.62 mGy.cm Comparison: Comparison is made to CT chest 07/30/2018 FINDINGS: Lungs and pleura: Trace bilateral pleural effusions and atelectasis are seen. Calcified pleural plaques are noted. Heart and pericardium: There is cardiomegaly without evidence of pericardial effusion. Vessels: Pulmonary trunk measures 51 mm in diameter. Within limits of a nondedicated exam, no pulmonary embolus is seen. No aortic dissection, the great vessels of the aorta are patent. Severe atherosclerotic disease is seen. Mediastinum and yasmin: Subcentimeter lymph nodes are seen. Chest wall and lower neck: Unremarkable. Abdomen: Nodular contour of the liver is seen which can be seen with cirrhosis. Bones: Degenerative changes in the thoracic spine. IMPRESSION: 1. No acute abnormality and in particular no evidence of acute aortic injury. 2. Prominent patient trunk dictation. 3. Additional findings as above. XR chest 1V portable CLINICAL HISTORY: Chest pain, nonspecific TECHNIQUE: Single frontal radiograph of the chest was obtained. Comparison: Comparison is made to chest radiograph 10/25/2010 FINDINGS: Median sternotomy wires are unchanged. Cardiomegaly is noted. The lungs are clear. No evidence of pleural effusion or pneumothorax. IMPRESSION: Faint bibasilar airspace opacities which may represent atelectasis, pneumonia, and/or aspiration. Medications Administered ER Medications Given: NSS 500 ml bolus Acetaminophen 1000mg IV Fentanyl 50 mcg IV Atropine 1mg IV ECG Rate (beats per minute): 34 Findings: + other (non-specific intraventricular delay) and + complete heart block Comparison ECG Date: from (October 26, 2010) Change: the following changes noted (complete heart block is new) Code Status & VTE Plan Code Status Full PG Care Time/CCT Total # of Minutes Spent Total Time Spent with Patient: Total time spent is greater than 50% in coordination of care (as documented) at patient's floor/unit and/or counseling patient: Coding Level of Care Code 83417 INT INP/OBS CARE 375MIN Diagnoses Complete heart block I44.2 Diabetes mellitus, type 2 E11.9 COPD, moderate J44.9 Pulmonary valve stenosis I37.0 Cirrhosis of liver K74.60 Hypertension I10
[2022-06-18 13:55] LABS: T4 Free Thyroxine 0.91 ng/dl (0.61-1.60)
--- NOTE | 2022-06-18 13:57 | Electrocardiogram Report ---
Test Reason : Blood Pressure : / mmHG Vent. Rate : 034 BPM Atrial Rate : 086 BPM P-R Int : 000 ms QRS Dur : 170 ms QT Int : 680 ms P-R-T Axes : 000 -64 027 degrees QTc Int : 511 ms Sinus rhythm with complete heart block and Idioventricular rhythm Left axis deviation Left bundle branch block Possible Lateral infarct , age undetermined Abnormal ECG When compared with ECG of 26-OCT-2010 06:40, Significant changes have occurred Confirmed by Jose Cruz Aparicio ([id number]) on 06/18/2022 1:56:56 PM Referred By: REFERRED SELF Confirmed By:Jose Cruz Aparicio
[2022-06-18] MEDS ORDERED: ATROPINE SULFATE 0.1 MG/ML 5ML SYR IV STA (14:08)
[2022-06-18] MEDS ORDERED: LIDOCAINE 1% LOCAL 20 ML VIAL ONE (14:10)
[2022-06-18] MEDS ORDERED: fentaNYL citrate PF 100 MCG/2 ML VIAL ONE (14:11)
[2022-06-18] MEDS ORDERED: HEPARIN (PORCINE) 1000 UNIT/ML 10 ML (CATH LAB USE ONLY) ONE (14:11)
[2022-06-18] MEDS ORDERED: MIDAZOLAM HCL 1 MG/ML 2ML VIAL ONE (14:11)
[2022-06-18] MEDS ORDERED: niCARdipine HCL INJ 2.5 MG/ML 10 ML AMP ONE (14:11)
[2022-06-18] MEDS ORDERED: NITROGLYCERIN/D5W 100MCG/ML 20ML SYR ONE (14:12)
--- NOTE | 2022-06-18 14:19 | Cardiology Consultation ---
Date of Consultation June 18, 2022 Assessment & Plan (1) Complete heart block: Negative Lyme. No occlusive coronary disease. Therefore, primary conduction system disease unlikely to be reversible. Status post transvenous pacer with good capture. Plan permanent pacemaker implantation. We will request EP consultation. (2) Hyperlipidemia: Patient is high risk (coronary disease and diabetes). Check a fasting lipid panel. Recommend high intensity statin therapy per guidelines. A atorvastatin 40 mg daily. 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 Likely secondary to prior pulmonary stenosis and associated surgery (details unknown). We need to reassess the size of the pulmonary aneurysm and make referral to cardiac surgery regarding repair. This can be done as an outpatient. (4) CAD (coronary artery disease): Diffuse mild disease. Guideline directed medical therapy for secondary prevention to include low-dose aspirin, high intensity statin therapy, beta- dara, and BIBI inhibitor/ARB as tolerated. Beta dara will be started after pacemaker implantation and after improvement in class IV heart failure. Treat comorbid disease including diabetes, hypertension, and dyslipidemia to clinical targets. (5) Hypertension: Blood pressure is above target at this time. He was on lisinopril and should continue this. In addition, we will eventually add a beta-dara. Further recommendations prior to discharge. (6) Acute systolic (congestive) heart failure: Patient has significant right-sided symptoms. Also with some evidence of pulmonary edema. His right IJ was severely dilated on ultrasound evaluation for IJ access. Given his pulmonary artery aneurysm, significant pulmonary regurgitation, reduced RV systolic function and what appeared to be probable significant tricuspid regurgitation I imagine that his pulmonary pressures are quite elevated. I am awaiting the echocardiogram for further evaluation of both right-sided and left-sided function and valve disease. In the meantime we should diurese with IV loop diuretic. We will gradually add appropriate chronic heart failure regimen including heart failure indicated beta-dara, aldosterone, and SGLT2 inhibitor in addition to the BIBI inhibitor. Further recommendations pending results of echocardiogram. History of Present Illness Reason for Consultation: Complete heart block History of Present Illness 76-year-old diabetic male with a remote history of pulmonary stenosis status post surgery in 1971 at [facility]. He denies history of coronary artery bypass grafting or stenting. He has noted lightheadedness, dizziness, weakness, and shortness of breath for the past 24 hours. He denies any anginal chest pain, heaviness, or tightness. It sounds as if he does not regularly follow with a physician. 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 In the emergency department his EKG demonstrated complete heart block. He was hemodynamically stable. I was asked to see him regarding the complete heart block. He was provided a dose of atropine which improved his heart rate temporarily. He has not been transcutaneously paced at this time. I have reviewed the patient's records. Sounds as if he has declined much of previously recommended therapy. He has a known pulmonary artery aneurysm of over 5 cm. He has not followed up regarding that including follow-up imaging. He denies any anginal chest pain, shortness of breath at rest, syncope, near syncope, orthopnea, PND, racing heartbeat, palpitations, or edema. Has exertional dyspnea. He states his neck hurts (posterior). Imaging was performed of his neck and chest. He has not had an echocardiogram in years and I do not identify any in our records. He is not seen by [facility] cardiology so if he has seen cardiology or had any echocardiograms it is likely through [facility]. These records are unavailable to me at this time. The patient's is present at the bedside. I discussed with both of them the need for temporary pacer given his very slow heart rate with symptoms and potential for deterioration which may go so far as . I also recommended that we perform coronary angiography given the slightly elevated troponin, his diabetes, potential for silent ischemia causing this problem, and high pre-test probability of underlying CAD given DM, HTN, HLD-not treated, and coronary atherosclerosis on CT. the risks, benefits, and alternatives were discussed in detail with the patient and his . Their questions were answered in full. They voiced understanding and wished for him to proceed with the procedure. Allergies Allergy/AdvReac Type Severity Reaction Status Date / Time No Known Allergies Allergy Unknown Verified 06/18/22 14:25 Home Medications Medication Instructions Recorded Confirmed Type lisinopril 20 mg tablet 20 mg PO QPM 06/18/22 06/18/22 History metformin 500 mg tablet,extended 1,000 mg PO QPM 06/18/22 06/18/22 History release 24 hr Patient History Medical History (Updated 06/18/22 @ 16:25 by Lorenzo Jiménez MD, PhD) Blood in stool Diabetes mellitus, type 2 Surgical History History of eye surgery left eye "cut retina open" [place] [facility] [place] shut, went in and opened it up"--no dobby loom chain pegger Family History Other No family history of adverse response to anesthesia Denies family history of Ovarian cancer Prostate cancer Myocardial infarction Breast cancer Colorectal cancer Social History Smoking Status: Former smoker Second Hand Exposure: No; Hx Alcohol Use: Yes Alcohol type: beer Hx Substance Use: No Preferred Language: Palestinian Communication Ability: Effective Pin Machine Tender Required: No Beliefs That Will Affect Care: None marital status: Current Living Situation: Spouse current occupational status: retired Feels Safe at Home: Yes Dental Care, Regularly: No Seatbelt Use: always Sunscreen Use: Yes Assistive Devices: Glasses Review of Systems Review of Systems: Negative except as per HPI Physical Exam Constitutional: Morbidly obese Eyes: Extraocular muscles intact. Sclera anicteric. ENMT: Oral mucosa is pink moist and intact Neck: Very thick. Nontender to anterior palpation. Mild thyromegaly. Respiratory: Mild dyspnea. Diffuse crackles. Fair air movement. Cardiovascular: Profoundly bradycardic rate. S3 gallop. Heart sounds are distant and murmurs are not appreciated. Chest (Breasts): Additional Comments: Prior sternotomy scar. Nontender to palpation. Musculoskeletal: no cyanosis or clubbing, extremities motor strength 5/5 Neurologic: Cognition is intact. Hearing is reduced. Speech is fluent. No focal deficits. No tremor. Psychiatric: A+Ox3, euthymic affect Results & Data Vital Signs (Past 12 Hours) Vital Signs Temp Pulse Resp BP Pulse Ox O2 Del Method 06/18/22 14:01 30 L 12 134/55 L 94 Room Air 06/18/22 13:46 30 L 13 144/60 H 94 Room Air 06/18/22 13:31 30 L 13 130/56 L 90 Room Air 06/18/22 13:16 46 L 16 156/68 H 95 Room Air 06/18/22 13:01 31 L 14 148/67 H 93 Room Air 06/18/22 12:46 31 L 16 131/58 L 95 Room Air 06/18/22 12:37 32 L 13 145/59 H 94 Room Air 06/18/22 12:17 34 L 14 144/57 H 96 Room Air 06/18/22 11:57 20 158/64 H 94 Room Air 06/18/22 11:59 34 L 06/18/22 11:42 36.4 C L 36 L 20 96 Room Air PG Care Time/CCT Total # of Minutes Spent Total Time Spent with Patient: Total time spent is greater than 50% in coordination of care (as documented) at patient's floor/unit and/or counseling patient: Critical Care Time: Yes Total Critical Care Time: 90 90 minutes was spent in initial evaluation, review of records, examination, discussion with family and the care team, formulation and implementation of a plan of care, and all associated documentation. This is exclusive of the time spent for the procedure. Coding Level of Care Code 25939 CRITICAL CARE 1ST 30-74M Diagnoses Complete heart block I44.2 Hyperlipidemia E78.5 Pulmonary artery aneurysm I28.1 CAD (coronary artery disease) I25.10 Hypertension I10 Acute systolic (congestive) heart failure I50.21 Additional Codes Critical Care Time - Critical Care Time: Yes ([id number])
[2022-06-18] MEDS ORDERED: FUROSEMIDE 40 MG/4 ML VIAL IV ONE (15:07)
--- NOTE | 2022-06-18 15:24 | Pre Anesthesia Assessment ---
Date of Service June 18, 2022 Pre Sedation Assessment Vital Signs Temp Pulse Resp BP Pulse Ox O2 Del Method 06/18/22 14:01 30 L 12 134/55 L 94 Room Air 06/18/22 13:46 30 L 13 144/60 H 94 Room Air 06/18/22 13:31 30 L 13 130/56 L 90 Room Air 06/18/22 13:16 46 L 16 156/68 H 95 Room Air 06/18/22 13:01 31 L 14 148/67 H 93 Room Air 06/18/22 12:46 31 L 16 131/58 L 95 Room Air 06/18/22 12:37 32 L 13 145/59 H 94 Room Air 06/18/22 12:17 34 L 14 144/57 H 96 Room Air 06/18/22 11:57 20 158/64 H 94 Room Air 06/18/22 11:59 34 L 06/18/22 11:42 36.4 C L 36 L 20 96 Room Air Cardiovascular Additional Comments: bradycardia, distant heart sounds, S3 Respiratory Additional Comments: mild SOB, diffuse crackles. Pre-Sedation Airway Assessment Smoking Status: Former smoker Short, Thick Neck: Yes Mallampati 4 ASA 4 Notes The planned sedation has been discussed with the patient. Informed Consent was obtained. I have identified the patient, determined the appropriateness of sedation and have assessed the patient immediately prior to the procedure. All medicine(s) and interventions are by my order.
--- NOTE | 2022-06-18 15:26 | Post Anesthesia Assessment ---
Date of Service June 18, 2022 Post Sedation Assessment Vital Signs Temp Pulse Resp BP Pulse Ox O2 Del Method 06/18/22 14:01 30 L 12 134/55 L 94 Room Air 06/18/22 13:46 30 L 13 144/60 H 94 Room Air 06/18/22 13:31 30 L 13 130/56 L 90 Room Air 06/18/22 13:16 46 L 16 156/68 H 95 Room Air 06/18/22 13:01 31 L 14 148/67 H 93 Room Air 06/18/22 12:46 31 L 16 131/58 L 95 Room Air 06/18/22 12:37 32 L 13 145/59 H 94 Room Air 06/18/22 12:17 34 L 14 144/57 H 96 Room Air 06/18/22 11:57 20 158/64 H 94 Room Air 06/18/22 11:59 34 L 06/18/22 11:42 36.4 C L 36 L 20 96 Room Air Recovery Score Activity: Moves 4 extremities Respiration: Dyspnea/Limited Breathing Circulation: +/-20% PreAnes Value Consciousness: Fully Awake Oxygen Saturation: O2 needed for >90% Discharge Sedation Level of Care: Phase I Post Sedation Plan On clinical assessment, the patient appears to have tolerated the sedation without complications. Patient is recovering as anticipated. Patient will continue to be monitored by nursing and may be discharged when sedation discharge criteria are met per below protocol. Upon Completions of procedure up to 15 minutes continue every 5 minute vital signs and the P.A.R. score; then discharge to a Phase I or Fast Track to Phase II per the following guidelines: * Discharge Patient to appropriate Phase II area if PAR is 8 or greater or return to pre- procedure baseline. The post - procedure orders will be as directed. * If PAR score is less than 8 or not return to pre-procedure baseline then patient will follow Phase I monitoring till PAR is reached for Phase II. The Phase I may be done in procedure room or may call to secure a Phase I area. * If naloxone or flumazenil are used for reversal, hold in Phase I for c ontinued monitoring from when last reversal dose was given for a minimum of 60 minutes or longer pending the nurse and/or physician discretion of patient condition before discharge to Phase II. Please call the Sedation Physician to re-evaluate and complete post-note for discharge to Phase II area. Do NOT discharge from procedure sedation or Phase 1 until post- sedation evaluation note is complete by procedure /sedation MD Sedation Discharge Instructions to be given to the patient at discharge to home. [facility] Procedure Codes (Charges) Indication for Procedure Indication for procedure: complete HB, elevated troponin Sedation/Anesthesia Procedure 1: Sedation/Anesthesia: 53098 Mod Sedation by the same physician;Init15 Min Child Age 5 & Up (initial 15 mins ) Total Sedation Time (minutes): 27 Procedure 2: Sedation/Anesthesia: 56712 Mod Sedation by the same physician; Ea [id number] Minutes (additional 12 min) Total Sedation Time (minutes): 27
--- NOTE | 2022-06-18 15:30 | Cardiac Catheterization ---
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 Cardiac Status Clinical evaluation leading to the procedure CAD Presenation: Sx unlikely to be ischemic Anginal Classification: No Symptoms Heart Failure: NYHA Class: CCS IV Cardiogenic Shock within 24 Hours: No Cardiac Arrest within 24 Hours: No Imaging Studies Past 6 Months: No Coronary Anatomy Dominant: Co-Dominant Left Main (% Stenosis): Normal (Mild) LAD (% Stenosis): Normal (Diffuse mild) D1 (% Stenosis): Ostial (40 to 50%) Circumflex (% Stenosis): Normal (Diffuse mild) OM1 (% Stenosis): Normal (Mild) OM2 (% Stenosis): Normal OM3 (% Stenosis): Normal L PL1 (% Stenosis): Normal (Mild) L PL2 (% Stenosis): Normal (Mild) L PDA (% Stenosis): Normal RCA (% Stenosis): Normal (Diffuse mild) R PDA (% Stenosis): Normal (Mild) Ramus (% Stenosis): Normal Left Ventricular Angiography EF (%): 25 Mitral Regurgitation: 2+ Diagnostic Physicians Name: Lorenzo Jiménez MD, PhD Closure Device Percutaneous Entry Location: Right IJ (Right IJ and radial) Closure Device: Radial Band Recommendations: Medical Therapy and/or Counseling and Management Recommendatons (Permanent pacemaker implantation) Intraprocedure Events Significant Disection: No Perforation: No Cardiac Cath Procedure Full Procedure Date June 18, 2022 Pre-Procedure Diagnosis Pre-Procedure Diagnosis: Non STEMI and Arrhythmia (complete HB) AUC Score AUC Score: 09 Post-Procedure Diagnosis Post-Procedure Diagnosis: Mild CAD Procedure(s) Performed Procedure(s) Performed: Coronary Angiography, Left Heart Cath, LV Angiography, Temporary Pacemaker, Ultrasound Guided Vascular Access and Procedure (Right ventriculography) Historic Preservationist Lorenzo Jiménez MD, PhD Estimated Blood Loss Estimated Blood Loss: < 10 ml Medication(s) Medication(s): Fentanyl, Heparin, Lidocaine 1%, Nicardipine, Nitroglycerin and Versed Summary of Findings Brief description: Patient was brought to the cardiac catheterization suite where he was shaved and prepped in a sterile fashion. Sedated using IV Versed and fentanyl. Soft tissues of the right neck were anesthetized using 2 mL of 1% Xylocaine. Using the ultrasound for guidance, the right internal jugular vein was accessed and a 7 [place] venous sheath was placed. Through this, a 4 [place] pigtail catheter was advanced and positioned in the right ventricle. Right ventriculography was performed. The catheter was then removed and a 7 [place] temporary pacing catheter was advanced under fluoroscopic guidance to the RV apex. The balloon was deflated and pacing was performed at 100 bpm and 10 mA. The mA was reduced and we continue to have capture even at 0.5 mA. Therefore, final settings for transvenous pacing were 3 mA and 70 bpm. The pacing catheter was secured in place. We then turned our attention to left heart cath and coronary angiography. Soft tissues of the right wrist were anesthetized using 2 mL of 1% Xylocaine. The right radial artery was accessed using modified Seldinger technique and a 6 [place] radial artery glide sheath was placed. Patient was provided anticoagulation with IV heparin and antispasmodics including nicardipine and nitroglycerin. All catheters were advanced and exchanged over a 0.035 J-tip wire. Left coronary angiography was performed in orthogonal views with a 5 [facility] Lucian Eunice 4 diagnostic catheter Right coronary angiography in orthogonal views with a 5 [facility] JR 5 diagnostic catheter Left heart cath and left ventriculogram were performed with a 5 [place] pigtail catheter All catheters were removed. Radial artery sheath was removed. Hemostasis was obtained using the TR band. Patient was hemodynamically stable and asymptomatic. He was returned to the recovery area. This ended the case. Findings: RV gram: (AP projection) RV function appears reduced There appears to be a large pulmonary aneurysm Appears to have significant pulmonary regurgitation Appears to be significant tricuspid regurgitation but suboptimal imaging Transvenous pacer: Pacer is near the RV apex Good capture at 3 mA and paced rate of 70 bpm Coronary angiography: LMT: Large caliber vessel trifurcating into LAD, ramus, and circumflex. Mild luminal irregularities. LAD: Large caliber and transapical. Provides a large septal branch and a high arising large caliber first diagonal. The diagonal has ostial to proximal up to 50% stenosis. It branches in the mid and distal segment. It has diffuse mild disease. The mid LAD has a focal 40 to 50% calcified stenosis. The distal LAD has diffuse mild disease and provides a small caliber second diagonal. Ramus: This is small to medium in caliber with diffuse mild disease. LCx: This is a large caliber and codominant vessel traveling in the AV groove. First OM arises high on the vessel and is medium caliber. It branches and has n o more than mild luminal irregularities. OM 2 is medium caliber with no significant disease. OM 3 is a medium caliber without significant disease. The first posterolateral branch is large with mild disease. The second posterior lateral branch is medium to large with mild diffuse disease. The PDA is medium and long with mild luminal irregularities. RCA: This is a large caliber and codominant vessel. Mildly ectatic initially and then mild disease before the first RV marginal branch. The mid segment has diffuse mild disease with up to 30 to 40% narrowing. The distal RCA has diffuse mild disease and then becomes a long large caliber PDA which has mild scattered plaques. Left ventriculogram: (REBOLLEDO projection only) LVEF appears to be 25% Appears to have 2+ mitral regurgitation Severe global hypokinesis Summary: 1. Successful placement of a RV transvenous pacemaker. 2. Right ventriculogram suggests reduced function, significant pulmonary valve insufficiency, and main pulmonary artery aneurysm. 3. Diffuse mild nonocclusive coronary disease as described. 4. Severely reduced LV systolic function with likely at least moderate mitral regurgitation 5. Mildly elevated left ventricular filling pressure 6. Probable significantly elevated right atrial pressure Hemodynamics Rest Ao:: 124/75 mmHg, mean 84 mmHg Final Ao: 129/86 mmHg, mean 92 mmHg LV: 134 over 13 mmHg, LVEDP 19 mmHg Recommendations Recommendations: Medical Therapy and/or Counseling and Management Recommendatons (Permanent pacemaker implantation) Radiation Exposure (mGy) 2542 mGy, fluoroscopy time 10.2-minute Contrast (mls) 140 mL Anesthesia 2 mg IV Versed, 25 mcg IV fentanyl Procedural Complication(s) None Disposition ICU I attest to the content of the Intraoperative Record and any orders documented therein. Any exceptions are noted below. [facility] [place] Card Cath Procedure Codes Cardiac Catheterization Procedure 1: Cardiovascular Cath Procedures: 49514 Coronaries and LHC (+/-LV) Therapeutic Services & Ancillary Procedure 1: Cardiovascular Tx and Anc Procedures: 82180 Ultrasonic Guidance Vascular Access Procedure 2: Cardiovascular Tx and Anc Procedures: 08552 Temp Pacer Insert Moderate Sedation Procedure 1: Sedation/Anesthesia: 70908 Mod Sedation by the same physician;Init15 Min Child Age 5 & Up (Initial 15-minute (total 27 minutes)) Procedure 2: Sedation/Anesthesia: 30876 Mod Sedation by the same physician; Ea [id number] Minutes (Additional 12 minutes (total 27 minutes)) PG Care Time/CCT Total # of Minutes Spent Total Time Spent with Patient: Total time spent is greater than 50% in coordination of care (as documented) at patient's floor/unit and/or counseling patient:
[2022-06-18] MEDS ORDERED: ICU Protocol for HYPERglycemia SCH (16:30)
--- NOTE | 2022-06-18 16:38 | Critical Care Consultation ---
Date of Consultation June 18, 2022 Assessment & Plan (1) Acute systolic (congestive) heart failure: (2) Complete heart block: (3) Pulmonary artery aneurysm: (4) Hypertension: (5) Morbid obesity: (6) Gout: (7) Pleural effusion: Plan Reason Critically Ill: 76-year-old male past medical history of pulmonary valve stenosis s/p surgery 1971, obesity, diabetes, hypertension presented to the hospital with dizziness. Was found to be in complete heart block. Transvenous pacemaker was placed and sent to the ICU CT chest 06/18/2022 personally reviewed: Enlarged main pulmonary artery as well as left pulmonary artery Small right-sided pleural effusion, dependent atelectasis bilateral lower lobes Cardiomegaly No mediastinal lymphadenopathy Neuro - [facility] ICU: Negative Cardiac - -- Complete heart block S/p transvenous pacemaker 06/18/2022 For permanent pacemaker in a.m. -- New onset CHF with small right-sided pleural effusion Patient does not seem to be in severe decompensation We will give diuretics on an as-needed basis -- Elevated troponin Likely type II DC Cardiac cath did not show any significant stenosis, no intervention was done --Hypertension Continue with blood pressure medication --History of pulmonary valve replacement in 1971 Respiratory - -- Small right-sided pleural effusion No need for any intervention, continue with diuretics -- Significant smoking history Approximately [id number] smoking history Not on any inhalers at home Recommend PFTs as an outpatient GI - No current issues RENAL/LYTES - -- JOÃO Likely from hypotensive episode and bradycardia the time of presentation Monitor BUN/creatinine Avoid nephrotoxic medications Strict ins and outs - Continue with Aguilera catheter ENDO - -- Diabetes type 2 Continue with ICU hypoglycemia protocol HEME - --Normocytic anemia Monitor H&H ID - No active issues --Prophylaxis VTE:IPC GI: None Lines: Peripheral, right IJ transvenous pacemaker Diet: Cardiac Plan: Strict in and out Keep the patient negative balance. We will consider giving another dose of Lasix if need be. Currently patient is saturating well on room air Patient will benefit from BiPAP nightly and as needed shortness of breath. We will start with 12/8 and gradually increase the EPAP if patient is tolerating it Follow-up urine lites, if the blood pressure stays in the 150s will resume patient's Lisinopril Follow-up 2D echo I have personally spent 48 minutes of critical care time in the direct management of this patient. This is a life/limb threatening event. This includes time spent evaluating patient, direct bedside care, chart review, placing orders, interpretation of diagnostic studies, discussion with consultants, patient, and family members, as well as other required patient management activities. This time is exclusive of all separately billable procedures, and teaching time and separate from and in addition to any other critical care service time. History of Present Illness Attending Physician: Lorenzo Jiménez MD, PhD History of Present Illness 76-year-old male presented to the hospital with complaints of dizziness Past medical history:Diabetes type 2, pulmonary valve stenosis s/p replacement in 1971 at [place], hypertension, questionable history of cirrhosis of the liver In the ED patient was found to be in complete heart block. He was taken to the [facility] and transvenous pacemaker was placed in Patient also had cardiac catheter done which showed mild coronary artery disease. No intervention was done At the time of examination in the ICU patient's heart rate was 70 it was ventricularly paced. Patient's daughter and are also in the room. He was saturating 96-97% on 2 L nasal cannula. I was successfully able to take him off to room air and he was still saturating 93-94% He says that he is feeling much better since the transvenous pacemaker is placed. Denies any headache right now. No dizziness. No chest pain. No shortness of breath He has been coughing since last couple of days. Which is dry. No hemoptysis. Patient does snore at night. There is witnessed apneic episode as per the . No nausea vomiting. Does complain of some diarrhea. Social history: Approximately [id number] smoking history quit in 1986. Allergies Allergy/AdvReac Type Severity Reaction Status Date / Time No Known Allergies Allergy Unknown Verified 06/18/22 14:25 Home Medications Medication Instructions Recorded Confirmed Type lisinopril 20 mg tablet 20 mg PO QPM 06/18/22 06/18/22 History metformin 500 mg tablet,extended 1,000 mg PO QPM 06/18/22 06/18/22 History release 24 hr Patient History Medical History (Updated 06/18/22 @ 16:54 by Char Brown MD, [facility]) Blood in stool Diabetes mellitus, type 2 Surgical History History of eye surgery left eye "cut retina open" History of open heart surgery 1971 @ [facility] "valve was growing shut, went in and opened it up"--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 Family History Other No family history of adverse response to anesthesia Denies family history of Ovarian cancer Prostate cancer Myocardial infarction Breast cancer Colorectal cancer Social History Smoking Status: Former smoker Second Hand Exposure: No; Hx Alcohol Use: Yes Alcohol type: beer Hx Substance Use: No Preferred Language: Welsh Communication Ability: Effective Market Manager Required: No Beliefs That Will Affect Care: None marital status: Current Living Situation: Spouse current occupational status: retired Feels Safe at Home: Yes Dental Care, Regularly: No Seatbelt Use: always Sunscreen Use: Yes Assistive Devices: Glasses Review of Systems Review of Systems: All systems reviewed & are unremarkable except as noted in HPI & below Physical Exam Physical Exam: Constitutional: No acute distress HEENT: EOMI, PERRLA, thick neck Respiratory system: Good air entry bilaterally, no wheeze, no rhonchi, mild crackles bilateral lower lobes CVS: S1-S2 positive, distant heart sounds, positive 2 out of 6 systolic murmur appreciated best at aorta Abdomen: Soft, nontender, nondistended, positive bowel sounds x4, obese Extremities: +2 pulses bilaterally radialis/ dorsalis pedis, no cyanosis, no edema Neuro: Awake alert oriented x3 Psych: Normal mood and affect G/U: Positive Aguilera Skin: no rashes, warm and dry Lymphatic: no cervical or axillary lymphadenopathy Results & Data Results & Data Vital Signs (Past 12 Hours) Vital Signs Temp Pulse Resp BP Pulse Ox O2 Del Method 06/18/22 14:01 30 L 12 134/55 L 94 Room Air 06/18/22 13:46 30 L 13 144/60 H 94 Room Air 06/18/22 13:31 30 L 13 130/56 L 90 Room Air 06/18/22 13:16 46 L 16 156/68 H 95 Room Air 06/18/22 13:01 31 L 14 148/67 H 93 Room Air 06/18/22 12:46 31 L 16 131/58 L 95 Room Air 06/18/22 12:37 32 L 13 145/59 H 94 Room Air 06/18/22 12:17 34 L 14 144/57 H 96 Room Air 06/18/22 11:57 20 158/64 H 94 Room Air 06/18/22 11:59 34 L 06/18/22 11:42 36.4 C L 36 L 20 96 Room Air Laboratory Results 06/18/22 12:04 06/18/22 12:04 Coding Level of Care Code 43497 CRITICAL CARE 1ST 30-74M Diagnoses Acute systolic (congestive) heart failure I50.21 Complete heart block I44.2 Pulmonary artery aneurysm I28.1 Hypertension I10 Morbid obesity E66.01 Gout M10.9 Pleural effusion J90 Time Spent (min) 48
[2022-06-18] MEDS ORDERED: PHARMACY GLYCEMIC MGMT CONSULT PRN (16:40)
[2022-06-18] MEDS ORDERED: CARBOHYDRATES FOR HYPOGLYCEMIA PO PRN (16:41)
[2022-06-18] MEDS ORDERED: GLUCOSE 10 TAB/TUBE PO PRN (16:41)
[2022-06-18] MEDS ORDERED: DEXTROSE 50% 50 ML SYRINGE IV PRN (16:41)
[2022-06-18] MEDS ORDERED: GLUCAGON FOR INJ 1 MG VIAL SQ PRN (16:41)
[2022-06-18] MEDS ORDERED: GLUCOSE 40% GEL 15 GM TUBE PO PRN (16:41)
[2022-06-18 17:19] LABS: Appearance Urine Clear (Clear); Bacteria Urine Automated Negative (Negative); Bilirubin Urine Negative (Negative); Blood Urine Negative (Negative); Cast Urine Automated 0 /lpf (0-5); Color Urine Yellow; Glucose Urine UA Negative (Negative); Ketones Urine Negative (Negative); Leukocyte Esterase Urine Negative (Negative); Nitrite Urine Negative (Negative); Protein Urine Trace (Negative); RBC Urine Automated 0-4 /hpf (0-4); Specific Gravity Urine 1.037 (1.000-1.030); Urobilinogen Urine Negative (Negative)
--- NOTE | 2022-06-18 17:29 | XCELERA ---
[id number] \\[email or web address]\[id number]___[id number]
[2022-06-18 17:44] LABS: Potassium Random Urine 21.4 mmol/L
[2022-06-18] MEDS: INSULIN ASPART PER UNIT CHARGE SC SCH (20:08)
[2022-06-18] MEDS: lisinopril 20 MG TAB PO SCH (20:09)
[2022-06-19 04:51] LABS: Basophils # (auto) 0.02 K/uL (0-0.2); Basophils % (auto) 0.3 %; Eosinophils # (auto) 0.07 K/uL (0-0.50); Eosinophils % (auto) 1.1 %; Hematocrit (blood only) 39.5 % (42.0-52.0); Hemoglobin 12.8 g/dl (14.0-18.0); Immature Granulocytes # (auto) 0.02 K/uL (0.01-0.20); Immature Granulocytes % (auto) 0.3 %; Lymphocytes # (auto) 0.52 K/uL (1.2-3.4); Lymphocytes % (auto) 8.3 %; Mean Corpuscular Hemoglobin 30.9 pg (25.0-34.0); Mean Corpuscular Hgb Conc 32.4 g/dL (32.0-36.0); Mean Corpuscular Volume 95.4 fL (80.0-100.0); Mean Platelet Volume 10.3 fL (9.4-12.4); Monocytes # (auto) 0.58 K/uL (0.11-0.59); Monocytes % (auto) 9.2 %; Neutrophils # (auto) 5.09 K/uL (1.40-6.50); Neutrophils % (auto) 80.8 %; Platelet Count 162 K/uL (130-400); RDW Coefficient of Variation 13.3 % (11.5-14.5); RDW Standard Deviation 46.8 fL (36.4-46.3); Red Blood Count 4.14 M/uL (4.70-6.10)
[2022-06-19 05:12] LABS: Chol HDL Ratio 4.1 (0-5); Creatinine Clr Calc Pharmacy 60.8 ml/min; Est GFR (African American) 67.7 ml/min; Est GFR (Non-African American) 58.4 ml/min; Phosphorus 4.9 mg/dl (2.5-4.9); Potassium 4.6 mmol/L (3.5-5.1)
[2022-06-19] MEDS: INSULIN ASPART PER UNIT CHARGE SC SCH ×4 (07:46→20:10)
[2022-06-19] MEDS: ATORVASTATIN 40 MG TAB PO SCH (08:03)
--- NOTE | 2022-06-19 08:42 | Cardiology Progress Note ---
Date of Service June 19, 2022 Assessment & Plan (1) Complete heart block: (2) CAD (coronary artery disease): (3) Hypertension: (4) Cardiomyopathy: (5) Acute systolic (congestive) heart failure: Plan 1. Complete heart block: He presents now with what appears to be recent onset of complete heart block. There appears to be no reversible cause. He will therefore require a pacemaker, since he is in sinus rhythm a dual-chamber pacemaker will be needed. 2. Coronary disease: He does have coronary disease however it is nonobstructive. We will need risk factor modification but no intervention is planned. This is not a cause of his complete heart block. 3. High blood pressure: We will need to increase his blood pressure controlling medications following pacemaker implantation, we will add a beta-dara due to his left ventricular dysfunction. 4. 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 I do not have recent electrocardiogram to tell whether he had a wide-complex prior to developing complete heart block, however in 2- this morning his complex is not wide. That could change if he were one-to-one he could have higher degree of conduction abnormalities. We will need to treat him as a nonischemic cardiomyopathy with beta-blockade, Entresto or lisinopril and possibly other medications. We will begin these after pacemaker implantation. He does not meet strict criteria for a defibrillator since he has not been on guideline directed medical therapy and his ejection fraction is borderline (30 to 35%) but at this point I do not think we should implant a defibrillator. If his ejection fraction does not improve we may have to upgrade to 1 in the future. 5. Congestive heart failure: He presented in congestive heart failure which was likely a result of his complete heart block. Admission and Anticipated Discharge Date Admission Date: June 18, 2022 Subjective Events of yesterday and overnight reviewed. In brief, he presented in complete heart block and congestive heart failure, he required temporary pacemaker implantation and echocardiography this morning shows severe left ventricular dysfunction with an ejection fraction of 30 to 35%. Catheterization showed no significant obstructive disease although there was mild coronary artery disease. This morning he feels well, he has remained paced overnight with a pacemaker from the right IJ. He has no chest discomfort and no shortness of breath. Physical Exam Physical Exam: Constitutional: Alert, cooperative and in no distress. He is sitting in bed. HEENT: Unremarkable except for right IJ pacemaker Neck: No jugular venous distention, carotid pulses are normal and equal bilaterally without bruits. Pulmonary: Clear to auscultation bilaterally. Cardiac: Regular rhythm with no murmur, gallop or rub. Abdomen: Soft, nontender with normal bowel sounds. Extremities: No edema. Distal pulses intact. Neurologic: No focal findings. Gait was not tested Skin: No rash, ecchymoses or petechiae. Results & Data Vital Signs (Past 12 Hours) Vital Signs Temp Pulse Resp BP Pulse Ox O2 Del Method 06/19/22 06:00 70 22 93 06/19/22 06:00 142/87 H 06/19/22 05:30 70 23 94 06/19/22 05:00 36.8 C 70 27 H 94 06/19/22 05:00 149/83 H 06/19/22 04:00 70 16 93 06/19/22 04:00 36.8 C 165/80 H 06/19/22 03:30 70 24 91 06/19/22 03:00 70 24 93 06/19/22 03:00 166/76 H 06/19/22 02:13 151/87 H 06/19/22 02:13 71 21 94 06/19/22 01:00 70 21 94 06/19/22 01:00 154/83 H 06/19/22 00:30 70 21 94 06/19/22 00:00 70 25 H 94 06/19/22 00:00 155/87 H 06/18/22 23:45 71 24 91 06/18/22 23:30 36.5 C 69 22 94 Room Air 06/18/22 23:15 69 24 95 06/18/22 23:59 70 06/18/22 23:00 70 24 93 06/18/22 23:00 36.6 C 153/101 H Room Air 06/18/22 22:30 69 19 94 06/18/22 22:00 70 16 95 CPAP 06/18/22 22:00 159/88 H 06/18/22 21:00 70 16 93 06/18/22 21:00 36.6 C 148/91 H 06/18/22 22:07 70 22 96 Laboratory Results Cardiac Enzymes 06/18/22 Range/Units 12:04 AST 25 (13-39) U/L Troponin I High Sens 115.3 H* (0-20) pg/ml Coagulation 06/18/22 Range/Units 12:04 PT 11.4 (9.0-12.0) Seconds Lipids 06/19/22 Range/Units 04:32 Triglycerides 130 (0-150) mg/dl Cholesterol 131 (0-200) mg/dl HDL Cholesterol 32 mg/dl Cholesterol/HDL Ratio 4.1 (0-5) CBC 06/18/22 06/19/22 Range/Units 12:04 04:32 WBC 8.34 6.30 (4.8-10.8) K/ul RBC 4.40 L 4.14 L (4.70-6.10) M/uL Hgb 13.7 L 12.8 L (14.0-18.0) g/dl Hct 41.0 L 39.5 L (42.0-52.0) % Plt Count 237 162 (130-400) K/uL Neut # (Auto) 6.64 H 5.09 (1.40-6.50) K/uL Lymph # (Auto) 0.91 L 0.52 L (1.2-3.4) K/uL [place] # (Auto) 0.61 H 0.58 (0.11-0.59) K/uL Eos # (Auto) 0.11 0.07 (0-0.50) K/uL Baso # (Auto) 0.05 0.02 (0-0.2) K/uL Comprehensive Metabolic Panel 06/18/22 06/19/22 Range/Units 12:04 04:32 Sodium 140 141 (136-145) mmol/L Potassium 4.4 4.6 (3.5-5.1) mmol/L Chloride 109 H 107 (98-107) mmol/L Carbon Dioxide 22 25 (21-32) mmol/L BUN 29 H 24 H (6-23) mg/dl Creatinine 1.23 1.20 (0.6-1.4) mg/dl Glucose 100 H 104 H (70-99(Fasting)) mg/dl Calcium 9.0 9.0 (8.6-10.3) mg/dl AST 25 (13-39) U/L ALT 17 (7-52) U/L Alkaline Phosphatase 89 (34-104) U/L Total Protein 7.6 (6.0-8.3) gm/dl Albumin 4.1 (3.4-5.0) gm/dl Intake and Output 06/18/22 06/19/22 06/19/22 22:59 06:59 14:59 Intake Total 550 / 1250 100 / 1250 Output Total 750 / 3100 2350 / 3100 Balance -200 / -1850 -2250 / -1850 Intake: Oral 550 / 650 100 / 650 Output: Urine 750 / 750 Urine Amount (Catheter) 2350 / 2350 External 2350 / 2350 Other: Weight 113.6 kg 109.5 kg Weight Measurement Method Built in [facility]scale Built in [facility] Diagnostic Findings Telemetry: Ventricular paced throughout with premature ventricular beats and occasional ventricular couplets. Temporary pacemaker: Turning the temporary pacemaker rate down to 30 bpm resulted in 2-1 AV conduction with a narrow complex. PG Care Time/CCT Total # of Minutes Spent Total Time Spent with Patient: Total time spent is greater than 50% in coordination of care (as documented) at patient's floor/unit and/or counseling patient: Coding Level of Care Code 19542 SUB INP/OBS CARE 3/50MIN Diagnoses Complete heart block I44.2 CAD (coronary artery disease) I25.10 Associated angina: without angina Coronary Disease-Associated Artery/Lesion type: zuni artery [place] vs. transplanted heart: zuni heart Hypertension I10 Hypertension type: primary hypertension Cardiomyopathy I42.0 Cardiomyopathy type: dilated Acute systolic (congestive) heart failure I50.21 (2) CAD (coronary artery disease) Associated angina: without angina Coronary Disease-Associated Artery/Lesion type: zuni artery [place] vs. transplanted heart: zuni heart Qualified Code(s): I25.10 - Atherosclerotic heart disease of zuni coronary artery without angina pectoris (3) Hypertension Hypertension type: primary hypertension Qualified Code(s): I10 - Essential (primary) hypertension (4) Cardiomyopathy Cardiomyopathy type: dilated Qualified Code(s): I42.0 - Dilated cardiomyopathy
[2022-06-19] MEDS ORDERED: ENOXAPARIN INJ 40 MG/0.4 ML SYR SQ ONE (10:15)
[2022-06-19 10:46] LABS: Estimated Average Glucose 126 mg/dl
--- NOTE | 2022-06-19 11:35 | Critical Care Progress Note ---
Date of Service June 19, 2022 Assessment & Plan (1) Complete heart block: Plan: Temporary pacer wire in place in the right IJ. Hopefully to undergo permanent pacemaker placement tomorrow. ? AICD given reduced ejection fraction. Lyme antibodies negative. Echo from yesterday with evidence of moderate to severe LV dysfunction. Maintain euvolemia. Low-salt diet. Defer CHF regimen to cardiology team. (2) Cardiomyopathy: Admission and Anticipated Discharge Date Admission Date: June 18, 2022 Subjective Patient seen and examined. Tolerating diet. Eager to go home. Pacer wire and introducer sheath in place on the right IJ. He denies any chest pain. Review of Systems Review of Systems: All systems reviewed & are unremarkable except as noted in HPI & below Physical Exam Physical Exam: Constitutional: No acute distress HEENT: EOMI, PERRLA, thick neck Respiratory system: Good air entry bilaterally, no wheeze, no rhonchi, mild crackles bilateral lower lobes CVS: S1-S2 positive, distant heart sounds, positive 2 out of 6 systolic murmur appreciated best at aorta Abdomen: Soft, nontender, nondistended, positive bowel sounds x4, obese Extremities: +2 pulses bilaterally radialis/ dorsalis pedis, no cyanosis, no edema Neuro: Awake alert oriented x3 Psych: Normal mood and affect G/U: Positive Aguilera Skin: no rashes, warm and dry Lymphatic: no cervical or axillary lymphadenopathy Results & Data Results & Data Vital Signs (Past 12 Hours) Vital Signs Temp Pulse Resp BP Pulse Ox O2 Del Method 06/19/22 06:00 70 22 93 06/19/22 06:00 142/87 H 06/19/22 05:30 70 23 94 06/19/22 05:00 36.8 C 70 27 H 94 06/19/22 05:00 149/83 H 06/19/22 04:00 70 16 93 06/19/22 04:00 36.8 C 165/80 H 06/19/22 03:30 70 24 91 06/19/22 03:00 70 24 93 06/19/22 03:00 166/76 H 06/19/22 02:13 151/87 H 06/19/22 02:13 71 21 94 06/19/22 01:00 70 21 94 06/19/22 01:00 154/83 H 06/19/22 00:30 70 21 94 03/27/23 00:00 70 25 H 94 06/19/22 00:00 155/87 H 06/18/22 23:45 71 24 91 06/18/22 23:30 36.5 C 69 22 94 Room Air 06/18/22 23:59 70 Coding Level of Care Code 83188 SUB INP/OBS CARE 1/25MIN Diagnoses Complete heart block I44.2 Cardiomyopathy I42.9
--- NOTE | 2022-06-19 12:03 | Pharmacy Report ---
Pharmacy Glycemic Short Note 2 - Date of Service June 19, 2022 - Glycemic Short BSG Results (Last 24 hours): 06/18/22 06/18/22 06/18/22 12:04 12:17 16:23 Glucose 100 H POC Glucose 77 POC Glucose (other) 101 H 06/18/22 06/19/22 06/19/22 20:06 04:32 07:41 Glucose 104 H POC Glucose 87 95 POC Glucose (other) 06/19/22 11:28 Glucose POC Glucose 238 H POC Glucose (other) OUTPATIENT ANTIDIABETIC REGIMEN: * Metformin ER 1000 mg PO PM * HbA1c: 6.0% (06/19/22) ASSESSMENT: * 76 yo M presented secondary to complete heart block. Pharmacy was consulted to assist with inpatient glycemic management. Well controlled T2DM as outpatient on metformin monotherapy. * Started on Novolog only last evening with no carb ratio. BSGs were: 101-77-87 mg/dL. No insulin given. * Fasting BSG was well controlled at 95 mg/dL this AM. * Continue to hold basal insulin. * Patient is scheduled for permanent pacemaker insertion tomorrow so will be NPO at midnight. * Lunchtime BSG up to 238 mg/dL today. * Per RN, patient did eat an uncovered breakfast after diet was ordered this AM. * Tightened CF and added a carb ratio based on weight/stress of 1. PLAN FOR INPATIENT GLYCEMIC CONTROL: * Hold outpatient oral diabetes medications * No basal insulin * Bolus insulin * NovoLog per scale ACHS or Q6hrs while NPO * Goal Range: Low 110 mg/dL - High 140 mg/dL * Correction Factor: 40 mg/dL/unit * Nutritional / Prandial insulin per carb ratio of 1 unit per 15 grams CHO consumed
--- NOTE | 2022-06-19 14:58 | Electrocardiogram Report ---
Test Reason : Blood Pressure : / mmHG Vent. Rate : 071 BPM Atrial Rate : 073 BPM P-R Int : 000 ms QRS Dur : 186 ms QT Int : 524 ms P-R-T Axes : 000 238 043 degrees QTc Int : 569 ms Ventricular-paced rhythm with occasional Premature ventricular complexes Abnormal ECG When compared with ECG of 18-JUN-2022 11:54, Electronic ventricular pacemaker has replaced Idioventricular rhythm Vent. rate has increased BY 37 BPM Confirmed by Jose Cruz Aparicio ([id number]) on 06/19/2022 2:58:00 PM Referred By: REFERRED SELF Confirmed By:Jose Cruz Aparicio
[2022-06-19] MEDS: lisinopril 20 MG TAB PO SCH (20:05)
--- NOTE | 2022-06-19 20:29 | Hospitalist Progress Note ---
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 Patient will have pacemaker placed on 06/20 (2) Diabetes mellitus, type 2: Plan: HbA1C 6.2 in January, repeat level in AM Hold metformin Novolog: --Goal BSG Range: Low 110 mg/dL, High 140 mg/dL --Correction Factor: 50 mg/dL/unit No carb ratio --BSGs ACHS if eating, q6h if npo (3) COPD, moderate: Plan: Unclear where this diagnosis is from. Patient reports diagnosed by his PCP but never had or needed inhalers of any kind. Recommend PCP follow up to consider removal of this diagnosis or PFTs if concerned. (4) Pulmonary valve stenosis: Plan: History of such with open hear surgery performed in 1971 (5) Cirrhosis of liver: Plan: Noted on CT in 2018 and today. Not known to patient. Patient made aware. Recommend outpatient follow up for this. (6) Hypertension: Plan: Will hold his lisinopril while in complete heart block Plan VTE Prophylaxis - deferred due to need for pacemaker insertion Disposition - to be determined following cardiac cath and pacing wire Admission and Anticipated Discharge Date Admission Date: June 18, 2022 Subjective Patient has no new complaints Review of Systems Review of Systems: All systems reviewed & are unremarkable except as noted in HPI & below Physical Exam Constitutional: well developed; + not well nourished and no acute distress Eyes: PERRL, conjunctivae normal, anicteric sclerae ENMT: external ear and nose normal, oropharynx normal Respiratory: normal respiratory effort Auscultation: + diminished lung sounds (throughout) and + crackles (bibasal); breath sounds present, no rales, no rhonchi and no wheezes Cardiovascular: Rate/Rhythm: regular rate and + bradycardic Heart Sounds: no murmur Extremities: normal capillary refill and + pedal edema; no calf tenderness Gastrointestinal (Abdomen): normal bowel sounds, soft, nontender, no hepatosplenomegaly Musculoskeletal: no cyanosis or clubbing, extremities motor strength 5/5 Skin: no rashes, warm and dry Neurologic: moves all extremities and awake; not confused Psychiatric: A+Ox3, euthymic affect Results & Data Results & Data Vital Signs (Past 12 Hours) Vital Signs Pulse Pulse Resp BP BP Pulse Ox O2 Del Method 06/19/22 18:00 60 26 H 94 06/19/22 18:00 154/74 H 06/19/22 17:01 62 28 H 95 06/19/22 17:00 159/76 H 06/19/22 15:23 60 22 94 06/19/22 15:00 60 25 H 96 06/19/22 14:01 60 26 H 97 06/19/22 14:01 137/66 06/19/22 14:00 62 25 H 95 06/19/22 13:00 64 23 93 06/19/22 13:00 153/64 H 06/19/22 12:00 61 25 H 94 06/19/22 12:00 165/70 H 06/19/22 11:15 138/53 L 06/19/22 11:15 62 25 H 92 06/19/22 11:00 59 L 25 H 95 06/19/22 10:00 62 28 H 93 06/19/22 09:01 60 20 92 06/19/22 09:01 159/75 H 06/19/22 09:00 62 20 91 06/19/22 16:00 60 06/19/22 13:28 64 22 137/66 97 Room Air 06/19/22 12:00 60 PG Care Time/CCT Total # of Minutes Spent Total Time Spent with Patient: Total time spent is greater than 50% in coordination of care (as documented) at patient's floor/unit and/or counseling patient: Coding Level of Care Code 57444 SUB INP/OBS CARE 2/35MIN Diagnoses Complete heart block I44.2 Diabetes mellitus, type 2 E11.9 COPD, moderate J44.9 Pulmonary valve stenosis I37.0 Cirrhosis of liver K74.60 Hypertension I10 Hypertension type: primary hypertension (6) Hypertension Hypertension type: primary hypertension Qualified Code(s): I10 - Essential (primary) hypertension
[2022-06-20 05:18] LABS: Basophils # (auto) 0.03 K/uL (0-0.2); Basophils % (auto) 0.5 %; Eosinophils # (auto) 0.13 K/uL (0-0.50); Hematocrit (blood only) 38.3 % (42.0-52.0); Immature Granulocytes # (auto) 0.04 K/uL (0.01-0.20); Immature Granulocytes % (auto) 0.6 %; Lymphocytes # (auto) 0.71 K/uL (1.2-3.4); Lymphocytes % (auto) 10.8 %; Mean Corpuscular Hemoglobin 31.3 pg (25.0-34.0); Mean Corpuscular Hgb Conc 33.9 g/dL (32.0-36.0); Mean Corpuscular Volume 92.1 fL (80.0-100.0); Mean Platelet Volume 10.4 fL (9.4-12.4); Monocytes # (auto) 0.54 K/uL (0.11-0.59); Monocytes % (auto) 8.2 %; Neutrophils # (auto) 5.13 K/uL (1.40-6.50); Neutrophils % (auto) 77.9 %; Platelet Count 148 K/uL (130-400); RDW Standard Deviation 43.9 fL (36.4-46.3); Red Blood Count 4.16 M/uL (4.70-6.10); White Blood Count 6.58 K/ul (4.8-10.8)
[2022-06-20 05:41] LABS: BUN Creatinine Ratio 21.6 (10-20); Calcium 8.7 mg/dl (8.6-10.3); Creatinine Clr Calc Pharmacy 71.5 ml/min; Est GFR (African American) 82.4 ml/min; Est GFR (Non-African American) 71.1 ml/min; Magnesium 1.8 mg/dl (1.7-2.4); Phosphorus 4.1 mg/dl (2.5-4.9); Potassium 4.3 mmol/L (3.5-5.1)
[2022-06-20] MEDS ORDERED: ceFAZolin 330 MG/ML 1 GM VIAL IV SCH ×2 (06:00)
[2022-06-20] MEDS ORDERED: WATER, STERILE FOR INJ 10 ML VIAL ONE (06:49)
[2022-06-20] MEDS ORDERED: VANCOMYCIN HCL 1000MG/20ML VIAL ONE (06:49)
[2022-06-20] MEDS ORDERED: BACITRACIN OINT 0.9 GM PKT ONE (06:49)
[2022-06-20] MEDS ORDERED: LIDOCAINE 1% LOCAL 20 ML VIAL ONE (06:49)
[2022-06-20] MEDS ORDERED: MIDAZOLAM HCL 5 MG/ML 1 ML VIAL ONE (07:24)
[2022-06-20] MEDS ORDERED: fentaNYL citrate PF 100 MCG/2 ML VIAL ONE (07:24)
[2022-06-20] MEDS ORDERED: ceFAZolin 330 MG/ML 1 GM VIAL ONE (07:24)
--- NOTE | 2022-06-20 08:01 | Pre Anesthesia Assessment ---
Date of Service June 20, 2022 Pre Sedation Assessment Vital Signs Temp Pulse Pulse Resp BP BP Pulse Ox 06/20/22 07:37 96 06/20/22 07:37 143/72 H 06/20/22 07:32 60 06/20/22 06:30 60 16 92 06/20/22 06:20 62 19 92 06/20/22 06:10 60 17 93 06/20/22 06:00 62 17 147/72 H 95 06/20/22 05:50 62 15 95 06/20/22 05:40 60 16 93 06/20/22 05:30 60 16 92 06/20/22 05:00 60 23 144/70 H 93 06/20/22 04:30 60 18 93 06/20/22 04:00 60 17 95 06/20/22 03:30 66 20 94 06/20/22 03:01 60 26 H 93 06/20/22 03:01 127/58 L 06/20/22 03:00 61 23 94 06/20/22 02:30 60 19 95 06/20/22 02:00 61 23 95 06/20/22 01:30 63 30 H 91 06/20/22 01:01 64 19 94 06/20/22 01:01 144/82 H 06/20/22 01:00 60 25 H 06/20/22 00:00 62 22 93 06/19/22 23:02 65 21 93 06/19/22 23:02 36.5 C 127/74 06/19/22 23:00 59 L 20 93 06/19/22 22:01 60 25 H 93 06/19/22 22:01 162/87 H 06/19/22 22:00 61 23 91 06/19/22 21:00 70 27 H 91 06/19/22 21:00 166/107 H 06/19/22 20:01 142/67 H 06/19/22 20:01 78 28 H 94 06/19/22 20:00 70 26 H 92 06/19/22 19:04 150/103 H 06/19/22 19:04 60 19 95 06/19/22 19:03 60 29 H 93 06/20/22 00:00 63 06/19/22 20:53 69 06/19/22 18:00 60 26 H 94 06/19/22 18:00 154/74 H 06/19/22 17:01 62 28 H 95 06/19/22 17:00 159/76 H 06/19/22 15:23 60 22 94 06/19/22 15:00 60 25 H 96 06/19/22 14:01 60 26 H 97 06/19/22 14:01 137/66 06/19/22 14:00 62 25 H 95 06/19/22 13:00 64 23 93 06/19/22 13:00 153/64 H 06/19/22 12:00 61 25 H 94 06/19/22 12:00 165/70 H 06/19/22 11:15 138/53 L 06/19/22 11:15 62 25 H 92 06/19/22 11:00 59 L 25 H 95 06/19/22 10:00 62 28 H 93 06/19/22 09:01 60 20 92 06/19/22 09:01 159/75 H 06/19/22 09:00 62 20 91 06/19/22 16:00 60 06/19/22 13:28 64 22 137/66 97 06/19/22 12:00 60 O2 Del Method O2 Flow Rate 06/20/22 07:37 Nasal Cannula 2 06/20/22 07:37 06/20/22 07:32 Nasal Cannula 2 06/20/22 06:30 06/20/22 06:20 06/20/22 06:10 06/20/22 06:00 06/20/22 05:50 06/20/22 05:40 06/20/22 05:30 06/20/22 05:00 06/20/22 04:30 Nasal Cannula 2 06/20/22 04:00 06/20/22 03:30 06/20/22 03:01 06/20/22 03:01 06/20/22 03:00 06/20/22 02:30 06/20/22 02:00 06/20/22 01:30 06/20/22 01:01 Nasal Cannula 2 06/20/22 01:01 06/20/22 01:00 06/20/22 00:00 06/19/22 23:02 Nasal Cannula 2 06/19/22 23:02 06/19/22 23:00 06/19/22 22:01 06/19/22 22:01 06/19/22 22:00 06/19/22 21:00 06/19/22 21:00 06/19/22 20:01 06/19/22 20:01 06/19/22 20:00 06/19/22 19:04 06/19/22 19:04 06/19/22 19:03 06/20/22 00:00 06/19/22 20:53 06/19/22 18:00 06/19/22 18:00 06/19/22 17:01 06/19/22 17:00 06/19/22 15:23 06/19/22 15:00 06/19/22 14:01 06/19/22 14:01 06/19/22 14:00 06/19/22 13:00 06/19/22 13:00 06/19/22 12:00 06/19/22 12:00 06/19/22 11:15 06/19/22 11:15 06/19/22 11:00 06/19/22 10:00 06/19/22 09:01 06/19/22 09:01 06/19/22 09:00 06/19/22 16:00 06/19/22 13:28 Room Air 06/19/22 12:00 Cardiovascular RRR, no murmur, no edema Pre-Sedation Airway Assessment Smoking Status: Never smoker Hx Sleep Apnea: No Short, Thick Neck: No Thyromental Distance: > or= 3.5 Finger Breadths Oral Cavity: + WNL Mallampati Class: II ASA: ASA2 NPO Status Date of Last Intake of Fluids: 06/19/22 Time of Last Intake of Fluids: 22:00 Date of Last Intake of Solid Food: 06/19/22 Procedure Planning Contraindications for Sedation: none Current Medications Reviewed: Yes Notes The planned sedation has been discussed with the patient. Informed Consent was obtained. I have identified the patient, determined the appropriateness of sedation and have assessed the patient immediately prior to the procedure. All medicine(s) and interventions are by my order.
--- NOTE | 2022-06-20 08:02 | History & Physical Bridge Note ---
Date of Service June 20, 2022 History & Physical Bridge Note I have examined the patient, reviewed the History & Physical and in the interval since the performance of the History & Physical I have noted the following changes of clinical significance: no changes noted he remains in complete heart block and is pacer dependent this morning. I reviewed the indications, procedure, risks and alternatives with the patient, and answered all questions. Patient understands and agrees to the procedure. Consent obtained. I also reviewed the risks and use of sedation, patient understands and consent obtained.
--- NOTE | 2022-06-20 10:13 | Pharmacy Report ---
Pharmacy Glycemic Sign Off Nt - Date of Service June 20, 2022 - Assessment & Plan ASSESSMENT: * BSG's have ranged 77-116 mg/dL over the last 48 hours, with one exception of 238 mg/dL at lunch yesterday (due to PO intake at breakfast not covered by Novolog) * Discussed at ICU rounds this AM - OK for pharmacy to sign off PLAN FOR INPATIENT GLYCEMIC CONTROL: No changes needed to current regimen. * No basal insulin * Continue NovoLog per scale ACHS/Q6hrs while NPO * Goal range = 110 140 mg/dl * CF = 40 mg/dl/unit * CR = 1 unit for ever 15 g CHO consumed * Pharmacy is signing off of glycemic consult and will no longer be making adjustments to inpatient regimen. Please feel free to re-consult if needed. Thank you.
--- NOTE | 2022-06-20 10:30 | Electrophysiology Report ---
Date of Service June 20, 2022 Electrophysiology Procedure Electrophysiology Procedure Report Preoperative diagnosis: Complete heart block, cardiomyopathy, congestive heart failure Postoperative diagnosis: Same Procedure: Left subclavian venogram Atrial and ventricular defibrillator lead implantation Coronary sinus angiography Left ventricular lead implantation Biventricular pacemaker implantation Temporary pacemaker removal Surgeon: Raffaele Tijerina MD Estimated blood loss: 50 cc Complications: None Disposition: Cardiology recovery Procedure details: After obtaining informed consent for the procedure, the patient was brought to the laboratory and prepped and draped in the standard sterile manner. Dye was injected the left arm IV site to opacify the left subclavian vein. The subclavian vein was identified and found to be free of obstruction. The left prepectoral region was anesthetized with 1% lidocaine local anesthetic and left axillary venipuncture was performed by percutaneous technique and a guidewire placed through the left subclavian vein into the superior vena cava. The area was further infiltrated with 1% lidocaine local anesthetic and a 5 cm incision was made parallel to the left clavicle and 2 cm below it and carried down to the anterior pectoralis fascia. A pacemaker pocket was formed by blunt dissection anterior to the pectoralis fascia and a vancomycin-soaked sponge was placed in the pocket. An 8.5 [place] [employer] lead introducer was placed over the guidewire into the left subclavian vein, the dilator and guidewire were removed and a bipolar active fixation steroid tipped ventricular lead was advanced through the introducer into the superior vena cava. A guidewire was placed through the introducer and the introducer was stripped from the lead and guidewire. An 8.5 [place] [employer] lead introducer was placed over the guidewire into the left subclavian vein, the dilator and guidewire were removed and a bipolar active fixation steroid tipped atrial lead was advanced through the introducer into the superior vena cava. A guidewire was placed back through the introducer and the introducer was stripped from the lead and guidewire. Using a curved stylette the ventricular lead was advanced through the right ventricular outflow tract into the pulmonary artery and then using a straight stylette was positioned in the right ventricular apex. The screw was extended fixing the lead in position. Pacing and sensing thresholds were evaluated in bipolar configuration and are recorded on the implant data sheet. Diaphragmatic pacing was evaluated at full bipolar output as indicated on the data sheet. Using a curved stylette the atrial lead was positioned in the region of the atrial appendage and the screw extended fixing the lead in position. Pacing and sensing thresholds were evaluated in bipolar configuration and are recorded on the implant data sheet. Diaphragmatic pacing was evaluated at full bipolar output as indicated on the data sheet. Once the leads were in position they were attached to the anterior pectoralis fascia using 1 suture of 2-0 silk around each lead collar. Left subclavian venipuncture was performed through the incision and a [place] coronary sinus sheath was advanced to position in the right atrium. The 90 degree subselection sheath was placed through the [place] sheath and using x-ray dye the os of the coronary sinus was identified. A guidewire was placed through the introducer into the coronary sinus and the [place] sheath was advanced into the coronary sinus. A balloon occlusion catheter was advanced through this sheath into the coronary sinus, the balloon was inflated and dye was injected in various projections to obtain a coronary sinus angiogram. A good vessel was identified and a 0.014 inch guidewire was advanced into this vessel. A quadripolar coronary sinus catheter was advanced over the guidewire into good distal position. The left ventricular pacing threshold was evaluated in various configurations, as recorded on the implant data sheet. Diaphragmatic pacing was evaluated at full output, as indicated on the data sheet. Once this lead was in position the introducer system was removed from the lead and the lead was attached to the anterior pectoral fascia using 2 sutures of 2-0 silk around the lead collar. An additional suture of 2-0 silk was placed around each of the atrial and ventricular lead collars as well. The vancomycin-soaked sponge was removed from the pocket, hemostasis was obtained, the pacemaker was attached to the leads and placed in the pocket with the leads coiled beneath it. The incision was closed with a running double subcutaneous closure of 3-0 Vicryl absorbable suture, followed by running subcuticular skin closure of 4-0 Vicryl absorbable suture. Bacitracin ointment was placed on the incision and a pressure dressing applied. [facility] [place] Electrophysiology codes Indication for Procedure (1) Complete heart block: (2) Cardiomyopathy: Pacing Procedure 1: Pacin Insert/Replace Pacer A & V Procedure 2: Pacin BiV electrode w/Pacer / ICD implant, add on code Miscellaneous Procedures Procedure 1: EP Miscellaneous: 83715 Contrast injection for venography Procedure 2: EP Miscellaneous: 25215-67 Vengraphy, extremity Procedure 3: EP Miscellaneous: 29653-05 Venography, CS supevsion/interp PG Moderate Sedation Codes Moderate Sedation Codes Procedure 1: Sedation/Anesthesia: 47946 Mod Sedation by the same physician;Init15 Min Child Age 5 & Up Procedure 2: Sedation/Anesthesia: 32632 Mod Sedation by the same physician; Ea [id number] Minutes
[2022-06-20] MEDS ORDERED: ACETAMINOPHEN W/CODEINE #3 1 TAB PO PRN (10:31)
[2022-06-20] MEDS ORDERED: ACETAMINOPHEN 325 MG TAB PO PRN (10:31)
[2022-06-20] MEDS: LACTATED RINGER'S 1,000 ML IV SCH (10:45)
[2022-06-20] MEDS: INSULIN ASPART PER UNIT CHARGE SC SCH ×4 (10:46→20:26)
[2022-06-20] MEDS: ATORVASTATIN 40 MG TAB PO SCH (10:55)
[2022-06-20] MEDS: MAGNESIUM SULFATE / D5W 1 GM/100 ML BAG IV SCH ×2 (10:55→13:00)
[2022-06-20] MEDS: carvediloL 12.5 MG TAB PO SCH ×2 (11:43→18:13)
--- NOTE | 2022-06-20 13:32 | Post Anesthesia Assessment ---
Date of Service June 20, 2022 Post Sedation Assessment Vital Signs Temp Pulse Pulse Resp BP BP Pulse Ox 06/20/22 13:01 71 17 96 06/20/22 13:01 138/81 06/20/22 13:00 74 20 83 L 06/20/22 12:31 68 20 91 06/20/22 12:31 173/94 H 06/20/22 12:30 68 20 95 06/20/22 12:01 190/96 H 06/20/22 12:01 70 21 92 06/20/22 12:00 68 26 H 95 06/20/22 11:30 74 17 96 06/20/22 11:30 184/102 H 06/20/22 11:01 65 19 95 06/20/22 11:01 195/141 H 06/20/22 11:00 75 21 98 06/20/22 10:45 67 19 98 06/20/22 10:30 69 22 185/98 H 95 06/20/22 10:15 66 22 181/93 H 94 06/20/22 07:37 96 06/20/22 07:37 143/72 H 06/20/22 07:32 60 06/20/22 06:30 60 16 92 06/20/22 06:20 62 19 92 06/20/22 06:10 60 17 93 06/20/22 06:00 62 17 147/72 H 95 06/20/22 05:50 62 15 95 06/20/22 05:40 60 16 93 06/20/22 05:30 60 16 92 06/20/22 05:00 60 23 144/70 H 93 06/20/22 04:30 60 18 93 06/20/22 04:00 60 17 95 06/20/22 03:30 66 20 94 06/20/22 03:01 60 26 H 93 06/20/22 03:01 127/58 L 06/20/22 03:00 61 23 94 06/20/22 02:30 60 19 95 06/20/22 02:00 61 23 95 06/20/22 01:30 63 30 H 91 06/20/22 01:01 64 19 94 06/20/22 01:01 144/82 H 06/20/22 01:00 60 25 H 06/20/22 00:00 62 22 93 06/19/22 23:02 65 21 93 06/19/22 23:02 36.5 C 127/74 06/19/22 23:00 59 L 20 93 06/19/22 22:01 60 25 H 93 06/19/22 22:01 162/87 H 06/19/22 22:00 61 23 91 06/19/22 21:00 70 27 H 91 06/19/22 21:00 166/107 H 06/19/22 20:01 142/67 H 06/19/22 20:01 78 28 H 94 06/19/22 20:00 70 26 H 92 06/19/22 19:04 150/103 H 06/19/22 19:04 60 19 95 06/19/22 19:03 60 29 H 93 06/20/22 00:00 63 06/19/22 20:53 69 06/19/22 18:00 60 26 H 94 06/19/22 18:00 154/74 H 06/19/22 17:01 62 28 H 95 06/19/22 17:00 159/76 H 06/19/22 15:23 60 22 94 06/19/22 15:00 60 25 H 96 06/19/22 14:01 60 26 H 97 06/19/22 14:01 137/66 06/19/22 14:00 62 25 H 95 06/19/22 16:00 60 O2 Del Method O2 Flow Rate 06/20/22 13:01 06/20/22 13:01 06/20/22 13:00 06/20/22 12:31 06/20/22 12:31 06/20/22 12:30 06/20/22 12:01 06/20/22 12:01 06/20/22 12:00 06/20/22 11:30 06/20/22 11:30 06/20/22 11:01 06/20/22 11:01 06/20/22 11:00 06/20/22 10:45 06/20/22 10:30 Room Air 06/20/22 10:15 Room Air 06/20/22 07:37 Nasal Cannula 2 06/20/22 07:37 06/20/22 07:32 Nasal Cannula 2 06/20/22 06:30 06/20/22 06:20 06/20/22 06:10 06/20/22 06:00 06/20/22 05:50 06/20/22 05:40 06/20/22 05:30 06/20/22 05:00 06/20/22 04:30 Nasal Cannula 2 06/20/22 04:00 06/20/22 03:30 06/20/22 03:01 06/20/22 03:01 06/20/22 03:00 06/20/22 02:30 06/20/22 02:00 06/20/22 01:30 06/20/22 01:01 Nasal Cannula 2 06/20/22 01:01 06/20/22 01:00 06/20/22 00:00 06/19/22 23:02 Nasal Cannula 2 06/19/22 23:02 06/19/22 23:00 06/19/22 22:01 06/19/22 22:01 06/19/22 22:00 06/19/22 21:00 06/19/22 21:00 06/19/22 20:01 06/19/22 20:01 06/19/22 20:00 06/19/22 19:04 06/19/22 19:04 06/19/22 19:03 06/20/22 00:00 06/19/22 20:53 06/19/22 18:00 06/19/22 18:00 06/19/22 17:01 06/19/22 17:00 06/19/22 15:23 06/19/22 15:00 06/19/22 14:01 06/19/22 14:01 06/19/22 14:00 06/19/22 16:00 Recovery Score Activity: Moves 4 extremities Respiration: Deep Breath/Cough Circulation: +/-20% PreAnes Value Consciousness: Fully Awake Oxygen Saturation: > 92% On Room Air Post Anesthesia Score: 10 Discharge Sedation Level of Care: Fast Track Phase II Post Sedation Plan On clinical assessment, the patient appears to have tolerated the sedation without complications. Patient is recovering as anticipated. Patient will continue to be monitored by nursing and may be discharged when sedation discharge criteria are met per below protocol. Upon Completions of procedure up to 15 minutes continue every 5 minute vital signs and the P.A.R. score; then discharge to a Phase I or Fast Track to Phase II per the following guidelines: * Discharge Patient to appropriate Phase II area if PAR is 8 or greater or return to pre- procedure baseline. The post - procedure orders will be as directed. * If PAR score is less than 8 or not return to pre-procedure baseline then patient will follow Phase I monitoring till PAR is reached for Phase II. The Phase I may be done in procedure room or may call to secure a Phase I area. * If naloxone or flumazenil are used for reversal, hold in Phase I for continued monitoring from when last reversal dose was given for a minimum of 60 minutes or longer pending the nurse and/or physician discretion of patient condition before discharge to Phase II. Please call the Sedation Physician to re-evaluate and complete post-note for discharge to Phase II area. Do NOT discharge from procedure sedation or Phase 1 until post- sedation evaluation note is complete by procedure /sedation MD Sedation Discharge Instructions to be given to the patient at discharge to home.
[2022-06-20] MEDS: lisinopril 20 MG TAB PO SCH (20:22)
--- NOTE | 2022-06-20 21:55 | Hospitalist Progress Note ---
Date of Service June 20, 2022 Assessment & Plan (1) Complete heart block: Plan: Temporary pacing wire to be paced by cardiology in the lab animal technician Also planning on cardiac catheterization to assess for coronary artery disease as potential cause. Patient is status post pacemaker on 06/20 will monitor on Results [employer] overnight. (2) Diabetes mellitus, type 2: Plan: HbA1C 6.2 in January, repeat level in AM Hold metformin Novolog: --Goal BSG Range: Low 110 mg/dL, High 140 mg/dL --Correction Factor: 50 mg/dL/unit No carb ratio --BSGs ACHS if eating, q6h if npo (3) COPD, moderate: Plan: Unclear where this diagnosis is from. Patient reports diagnosed by his PCP but never had or needed inhalers of any kind. Recommend PCP follow up to consider removal of this diagnosis or PFTs if concerned. (4) Pulmonary valve stenosis: Plan: History of such with open hear surgery performed in 1971 (5) Cirrhosis of liver: Plan: Noted on CT in 2019 and today. Not known to patient. Patient made aware. Recommend outpatient follow up for this. (6) Hypertension: Plan: Will hold his lisinopril while in complete heart block Admission and Anticipated Discharge Date Admission Date: June 18, 2022 Subjective 76 yo male reports tolerating the procedure. Patient has no new symptoms. Review of Systems Review of Systems: All systems reviewed & are unremarkable except as noted in HPI & below Physical Exam Constitutional: well developed; + not well nourished and no acute distress Eyes: PERRL, conjunctivae normal, anicteric sclerae ENMT: external ear and nose normal, oropharynx normal Respiratory: normal respiratory effort Auscultation: lungs clear to auscultation bilaterally; no rales, no rhonchi and no wheezes Cardiovascular: Rate/Rhythm: regular rate and + bradycardic Heart Sounds: no murmur Extremities: normal capillary refill and + pedal edema; no calf tenderness Gastrointestinal (Abdomen): normal bowel sounds, soft, nontender, no hepatosplenomegaly Musculoskeletal: no cyanosis or clubbing, extremities motor strength 5/5 Skin: no rashes, warm and dry Neurologic: moves all extremities and awake; not confused Psychiatric: A+Ox3, euthymic affect Results & Data Results & Data Vital Signs (Past 12 Hours) Vital Signs Temp Pulse Pulse Resp BP BP BP 06/20/22 19:36 36.8 C 64 24 151/80 H 06/20/22 17:00 69 24 06/20/22 17:00 153/84 H 06/20/22 16:01 62 21 06/20/22 16:01 147/76 H 06/20/22 16:00 63 15 06/20/22 15:00 68 17 06/20/22 14:30 152/71 H 06/20/22 14:30 64 19 06/20/22 14:02 66 27 H 06/20/22 14:02 133/72 06/20/22 14:00 63 21 06/20/22 13:30 65 21 06/20/22 13:30 130/79 06/20/22 13:01 71 17 06/20/22 13:01 138/81 06/20/22 13:00 74 20 06/20/22 12:31 68 20 06/20/22 12:31 173/94 H 06/20/22 12:30 68 20 06/20/22 12:01 190/96 H 06/20/22 12:01 70 21 06/20/22 12:00 68 26 H 06/20/22 11:30 74 17 06/20/22 11:30 184/102 H 06/20/22 11:01 65 19 06/20/22 11:01 195/141 H 06/20/22 11:00 75 21 06/20/22 10:45 67 19 06/20/22 10:30 69 22 185/98 H 06/20/22 10:15 66 22 181/93 H Pulse Ox O2 Del Method 06/20/22 19:36 95 Room Air 06/20/22 17:00 90 06/20/22 17:00 06/20/22 16:01 94 06/20/22 16:01 06/20/22 16:00 80 L 06/20/22 15:00 96 06/20/22 14:30 06/20/22 14:30 95 06/20/22 14:02 96 06/20/22 14:02 06/20/22 14:00 97 06/20/22 13:30 90 06/20/22 13:30 06/20/22 13:01 96 06/20/22 13:01 06/20/22 13:00 83 L 06/20/22 12:31 91 06/20/22 12:31 06/20/22 12:30 95 06/20/22 12:01 06/20/22 12:01 92 06/20/22 12:00 95 06/20/22 11:30 96 06/20/22 11:30 06/20/22 11:01 95 06/20/22 11:01 06/20/22 11:00 98 06/20/22 10:45 98 06/20/22 10:30 95 Room Air 06/20/22 10:15 94 Room Air PG Care Time/CCT Total # of Minutes Spent Total Time Spent with Patient: Total time spent is greater than 50% in coordination of care (as documented) at patient's floor/unit and/or counseling patient: Coding Level of Care Code 53951 SUB INP/OBS CARE 2/35MIN Diagnoses Complete heart block I44.2 Diabetes mellitus, type 2 E11.9 COPD, moderate J44.9 Pulmonary valve stenosis I37.0 Cirrhosis of liver K74.60 Hypertension I10 Hypertension type: primary hypertension (6) Hypertension Hypertension type: primary hypertension Qualified Code(s): I10 - Essential (primary) hypertension
[2022-06-21] MEDS: LACTATED RINGER'S 1,000 ML IV SCH (02:15)
[2022-06-21 05:01] LABS: Basophils # (auto) 0.02 K/uL (0-0.2); Basophils % (auto) 0.3 %; Eosinophils # (auto) 0.11 K/uL (0-0.50); Eosinophils % (auto) 1.4 %; Hemoglobin 12.8 g/dl (14.0-18.0); Immature Granulocytes # (auto) 0.02 K/uL (0.01-0.20); Immature Granulocytes % (auto) 0.3 %; Lymphocytes # (auto) 0.48 K/uL (1.2-3.4); Lymphocytes % (auto) 6.2 %; Mean Corpuscular Hemoglobin 30.9 pg (25.0-34.0); Mean Corpuscular Hgb Conc 33.7 g/dL (32.0-36.0); Mean Corpuscular Volume 91.8 fL (80.0-100.0); Mean Platelet Volume 10.4 fL (9.4-12.4); Monocytes # (auto) 0.65 K/uL (0.11-0.59); Monocytes % (auto) 8.4 %; Neutrophils # (auto) 6.45 K/uL (1.40-6.50); Neutrophils % (auto) 83.4 %; Platelet Count 144 K/uL (130-400); RDW Coefficient of Variation 12.9 % (11.5-14.5); RDW Standard Deviation 42.5 fL (36.4-46.3); Red Blood Count 4.14 M/uL (4.70-6.10); White Blood Count 7.73 K/ul (4.8-10.8)
[2022-06-21 05:24] LABS: Albumin Globulin Ratio 1.2 (0.9-2); Albumin Level 3.5 gm/dl (3.4-5.0); BUN Creatinine Ratio 23.7 (10-20); Bilirubin,Total 1.1 mg/dl (0.2-1.0); Calcium 8.5 mg/dl (8.6-10.3); Creatinine Clr Calc Pharmacy 75.2 ml/min; Est GFR (African American) 87.5 ml/min; Est GFR (Non-African American) 75.5 ml/min; Magnesium 1.9 mg/dl (1.7-2.4); Phosphorus 3.6 mg/dl (2.5-4.9); Potassium 4.2 mmol/L (3.5-5.1); Total Protein 6.5 gm/dl (6.0-8.3)
--- NOTE | 2022-06-21 07:27 | XRay Report ---
XR chest 2V PA/lateral HISTORY: Left-sided pacemaker placement. EXACT TIME ORDERED Evaluate for pneumothorax and l COMPARISON: Chest 06/18/2022. FINDINGS: Interval placement left-sided pacemaker/defibrillator. The leads appear intact. No pneumoth orax. The heart remains mildly enlarged. Trace pleural effusions. No evidence for pulmonary edema. IMPRESSION: Interval placement left-sided pacemaker/defibrillator. No pneumothorax. ACT 112: Negative or not required by law. Electronically signed by: Evangelist Silver M.D. 06/21/2022 7:26 AM
[2022-06-21] MEDS: INSULIN ASPART PER UNIT CHARGE SC SCH ×2 (07:40→11:44)
[2022-06-21] MEDS: ATORVASTATIN 40 MG TAB PO SCH (07:42)
[2022-06-21] MEDS: carvediloL 12.5 MG TAB PO SCH (07:42)
--- NOTE | 2022-06-21 09:01 | Cardiology Progress Note ---
Date of Service June 21, 2022 Assessment & Plan (1) Status post placement of cardiac pacemaker: (2) Complete heart block: (3) CAD (coronary artery disease): (4) Hypertension: (5) Cardiomyopathy: (6) Acute systolic (congestive) heart failure: Plan 1. Postop day #1: He is doing well postop day #1 following pacemaker implantation. The site looks good, the leads are in good position and measurements are excellent. From the pacemaker standpoint he can go home today. 2. Complete heart block: He presents now with what appears to be recent onset of complete heart block. There appears to be no reversible cause. He now has a paced rhythm with no significant underlying conduction. 3. Coronary disease: He does have coronary disease however it is nonobstructive. We will need risk factor modification but no intervention is planned. This is not a cause of his complete heart block. 4. High blood pressure: We will need to increase his blood pressure controlling medications, I would favor going up on beta-blockade. Since his blood pressure remains elevated I am going to increase his carvedilol. 5. 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 I do not have recent electrocardiogram to tell whether he had a wide-complex prior to developing complete heart block, however in 2-1 conduction preop his complex was not wide. That could change if he were one-to-one where he could have higher degree of conduction abnormalities. We will need to treat him as a nonischemic cardiomyopathy with beta-blockade, Entresto or lisinopril and possibly Jardiance. I have introduced carvedilol, he is on lisinopril which I would prefer to switch to Entresto but there is a cost concern and we can do that at a later date. If his ejection fraction does not improve we may have to upgrade to 1 in the future. 6. Congestive heart failure: He presented in congestive heart failure which was likely a result of his complete heart block. That has improved significantly following pacemaker implantation and diuresis. Admission and Anticipated Discharge Date Admission Date: June 18, 2022 Subjective He is feeling very well postop day #1. No significant incisional discomfort, no chest discomfort or shortness of breath. Physical Exam Physical Exam: The pacemaker site is clean and dry, no significant ecchymosis, no erythema or swelling. Cardiac rhythm is regular with no rub Lungs are clear Results & Data Vital Signs (Past 12 Hours) Vital Signs Temp Pulse Resp BP Pulse Ox O2 Del Method 06/21/22 07:00 Room Air 06/21/22 07:28 36.8 C 79 19 147/73 H 93 Room Air 06/20/22 23:00 37.7 C H 78 24 156/87 H 92 Room Air Laboratory Results Cardiac Enzymes 06/21/22 Range/Units 04:37 AST 21 (13-39) U/L CBC 06/21/22 Range/Units 04:37 WBC 7.73 (4.8-10.8) K/ul RBC 4.14 L (4.70-6.10) M/uL Hgb 12.8 L (14.0-18.0) g/dl Hct 38.0 L (42.0-52.0) % Plt Count 144 (130-400) K/uL Neut # (Auto) 6.45 (1.40-6.50) K/uL Lymph # (Auto) 0.48 L (1.2-3.4) K/uL Rolette # (Auto) 0.65 H (0.11-0.59) K/uL Eos # (Auto) 0.11 (0-0.50) K/uL Baso # (Auto) 0.02 (0-0.2) K/uL Comprehensive Metabolic Panel 06/21/22 Range/Units 04:37 Sodium 136 (136-145) mmol/L Potassium 4.2 (3.5-5.1) mmol/L Chloride 105 (98-107) mmol/L Carbon Dioxide 23 (21-32) mmol/L BUN 23 (6-23) mg/dl Creatinine 0.97 (0.6-1.4) mg/dl Glucose 112 H (70-99(Fasting)) mg/dl Calcium 8.5 L (8.6-10.3) mg/dl AST 21 (13-39) U/L ALT 11 (7-52) U/L Alkaline Phosphatase 77 (34-104) U/L Total Protein 6.5 (6.0-8.3) gm/dl Albumin 3.5 (3.4-5.0) gm/dl Intake and Output 06/20/22 06/21/22 06/21/22 22:59 06:59 14:59 Intake Total 770 / 1120 Output Total 301 / 1101 Balance 469 / 19 Intake: IV 100 / 200 Magnesium Sulfate / D5w 1 gm In 100 / 200 100 ml @ 50 mls/hr IV Q2H NILAY Rx#:[id number] Oral 670 / 920 Output: Urine 300 / 1100 # Bowel Movements / Other: # Unmeasured Voids 1 Weight 108.9 kg Weight Measurement Method Built in [facility] Diagnostic Findings Postop ECG: Appropriate biventricular pacing, the LV lead timing appears to be somewhat advanced and we will readjust that. Telemetry: Normal pacemaker function, ventricular paced throughout Chest x-ray: Good lead position, no pneumothorax Pacemaker evaluation: Excellent pacing and sensing characteristics in all leads PG Care Time/CCT Total # of Minutes Spent Total Time Spent with Patient: Total time spent is greater than 50% in coordination of care (as documented) at patient's floor/unit and/or counseling patient: Coding Level of Care Code 84463 SUB INP/OBS CARE 3/50MIN Diagnoses Status post placement of cardiac pacemaker Z95.0 Complete heart block I44.2 CAD (coronary artery disease) I25.10 Associated angina: without angina Coronary Disease-Associated Artery/Lesion type: ruby artery [place] vs. transplanted heart: ruby heart Hypertension I10 Hypertension type: primary hypertension Cardiomyopathy I42.0 Cardiomyopathy type: dilated Acute systolic (congestive) heart failure I50.21 CPT Codes Pacemaker Multi Lead Programming - 26171 ([id number]) (3) CAD (coronary artery disease) Associated angina: without angina Coronary Disease-Associated Artery/Lesion type: ruby artery [place] vs. transplanted heart: ruby heart Qualified Code(s): I25.10 - Atherosclerotic heart disease of ruby coronary artery without angina pectoris (4) Hypertension Hypertension type: primary hypertension Qualified Code(s): I10 - Essential (primary) hypertension (5) Cardiomyopathy Cardiomyopathy type: dilated Qualified Code(s): I42.0 - Dilated cardiomyopathy
[2022-06-21] MEDS ORDERED: HEPARIN SOD 5,000 UNIT/0.5 ML VIAL SQ STA (09:35)
[2022-06-21] MEDS ORDERED: carvediloL 6.25 MG TAB PO ONE (10:30)
--- NOTE | 2022-06-21 13:05 | Electrocardiogram Report ---
Test Reason : Blood Pressure : / mmHG Vent. Rate : 068 BPM Atrial Rate : 068 BPM P-R Int : 136 ms QRS Dur : 168 ms QT Int : 494 ms P-R-T Axes : 061 228 022 degrees QTc Int : 525 ms Poor data quality, interpretation may be adversely affected Atrial-sensed ventricular-paced rhythm Abnormal ECG When compared with ECG of 18-JUN-2022 15:43, Premature ventricular complexes are no longer Present Vent. rate has decreased BY 3 BPM Confirmed by Jose Cruz Aparicio ([id number]) on 06/21/2022 1:05:19 PM Referred By: REFERRED SELF Confirmed By:Jose Cruz Aparicio
[2022-06-21] MEDS ORDERED: carvediloL 6.25 MG TAB PO SCH (17:00)
[2022-06-21 19:38] LABS: Uric Acid, Random Urine 10 mg/dL
--- NOTE | 2022-06-22 23:18 | Discharge Summary ---
Date of Service June 21, 2022 Admission HPI Per Admitting Provider Alessandro Ga is a 76 year old male who presents to the ER with shortness of breath and dizziness. Symptoms have been progressively getting worse over the course of the last 2 weeks and especially the last 2 days. Dizziness is lightheadedness, no vertigo or feeling unbalanced. He denies any chest pain, syncope, orthopnea, PND, palpitations or claudication. No history of coronary artery disease. In the ER he was noted to be in complete heart block with a heart rate in the 30s. BP was normal and patient not having any symptoms at rest. Atropine was not successful. Principal Diagnosis complete heart block Discharge Exam Constitutional well developed; + not well nourished and no acute distress Eyes PERRL, conjunctivae normal, anicteric sclerae ENMT external ear and nose normal, oropharynx normal Respiratory normal respiratory effort Auscultation: lungs clear to auscultation bilaterally, + diminished lung sounds (throughout) and + crackles (bibasal); breath sounds present, no rales, no rhonchi and no wheezes Cardiovascular Rate/Rhythm: regular rate and + bradycardic Heart Sounds: no murmur Extremities: normal capillary refill and + pedal edema; no calf tenderness Gastrointestinal (Abdomen) normal bowel sounds, soft, nontender, no hepatosplenomegaly Musculoskeletal no cyanosis or clubbing, extremities motor strength 5/5 Skin no rashes, warm and dry Neurologic moves all extremities and awake; not confused Psychiatric A+Ox3, euthymic affect Discharge Data Allergies Allergy/AdvReac Type Severity Reaction Status Date / Time No Known Allergies Allergy Unknown Verified 06/22/22 11:23 Consultations 06/18/22 13:29 ED Decision to Admit Stat 06/18/22 13:38 Consult Cardiology Stat 06/18/22 15:57 Consult Diamond Setter Routine 06/18/22 16:35 Consult Cardiac Electrophysiology Routine Procedures Performed Operation Date: 06/20/22 08:00 Actual Procedures p Pacer with A/V Leads (Dual) - Raffaele Tijerina MD s Lead LV (No Priopr Implant) - Raffaele Tijerina MD s Venogram, Unilateral - Raffaele Tijerina MD Ordered Studies 06/18/22 12:03 CT angio chest dissec wo/w con Stat CT angio head w con Stat CT angio neck with con Stat CT head/brain wo con Stat 06/18/22 14:06 CL Cath Imgs for PACS use only Stat 06/20/22 06:45 EP Lab Images for PACS ONCE Hospital Course (1) Complete heart block: Temporary pacing wire to be paced by cardiology in the label operator Also planning on cardiac catheterization to assess for coronary artery disease as potential cause. Patient is status post pacemaker on 06/20 discharged on 06/21 Discharge medications as noted below. will f/u with cardiology. (2) Diabetes mellitus, type 2: HbA1C 6.2 in January, repeat level in AM Hold metformin during inpatient. Novolog: (while inhouse) --Goal BSG Range: Low 110 mg/dL, High 140 mg/dL --Correction Factor: 50 mg/dL/unit No carb ratio --BSGs ACHS if eating, q6h if npo (3) COPD, moderate: Unclear where this diagnosis is from. Patient reports diagnosed by his PCP but never had or needed inhalers of any kind. Recommend PCP follow up to consider removal of this diagnosis or PFTs if concerned. (4) Pulmonary valve stenosis: History of such with open hear surgery performed in 1971 (5) Cirrhosis of liver: Noted on CT in 2019 and today. Not known to patient. Patient made aware. Recommend outpatient follow up for this. (6) Hypertension: resume meds as described in discharge instructions. Total Time Total Time Spent Total Time Spent (In Minutes): 32 Discharge Plan Discharge Items Patient Disposition: Home - Self-Care Reason For Visit: COMPLETE HEART BLOCK Discharge Diagnosis: complete heart block Activity: Resume your previous activity Non-emergency contact: Primary Care Provider Call non-emergency contact if: you have any medication questions Follow-up/Referrals: Lakshmi Wharton CRNP [Primary Care Provider] - 06/26/22 10:30 am Raffaele Tijerina MD [Physician] - 06/23/22 9:30 am (Follow up with nurse in cardio office) Diet: Carb Consistent or DM2 and Low Sodium (2gm) Addtl Attending Provider Instructions: ACTIVITY RECOMMENDATIONS: * Do not raise affected arm over head for 2 weeks. SPECIAL CARE INSTRUCTIONS: * If bleeding occurs, apply direct pressure to area for 5 minutes. * Call your doctor if you have severe pain, fever, drainage or bleeding at site. * Keep dressing on and dry for 48 hours then remove. * Keep any scheduled doctor's appointment. * Implant Card - hand held device with website information given. SKIN IRRITATION: * You may experience some redness and/or swelling in the area where radiation was administered. If any skin irritation occurs, please contact your family physician. FOLLOW UP VISIT: Keep any scheduled doctor appointments. Call your Primary Care doctor if any of the following symptoms or problems start or get worse: * Shortness of breath or difficulty breathing * Wake up at night short of breath * Chest pain * Cough * Swelling of your hands, feet, or legs * More fatigued or tired with your normal activity * Palpitations - sudden fast heart beats WEIGHT * Weigh yourself every morning after using the bathroom. * Use the same scale. * Wear the same amount of clothing. * Write your weight down on a chart. * Call your Primary Care doctor if you gain more than 2-3 pounds in 1-2 days. MEDICATIONS * Use this discharge instruction sheet for medication instructions. * Take your medications at the time your doctor ordered. * Do not skip a dose of your medicines. * If you miss a dose of medicine, take it as soon as possible, but DO NOT DOUBLE A DOSE. * Read your medicine information when you get home. * Know all of the side effects of your medicine. If in doubt, ask your pharmacist * Call your Primary Care doctor's office if you have any side effects. * Be sure all of your doctors know what medicine and herbs you take (including cold, flu, and herbal medicine). Take the following with you to your follow-up doctor appointments: * Weight Chart * Medication List * List of questions Do not drink excessive alcohol, beer or wine. Pending Studies at Discharge: No Stand-Alone Forms: [facility] Medications and DC Order Prescriptions: New atorvastatin 40 mg Tablet 40 mg PO QAM Qty: 30 0RF carvedilol 6.25 mg Tablet 18.75 mg PO BIDM Qty: 60 0RF Continued lisinopril 20 mg tablet 20 mg PO QPM metformin 500 mg tablet extended release 24 hr 1,000 mg PO QPM Discharge Orders: Discharge Order (Routine); Ordered 06/21/22 Ordered By: Anastacio Chris/Other Patient Handouts: Managing Type 2 Diabetes Admission Data Admit Date/Time: 06/18/22 15:18 Attending Provider: Anastacio Montesinos Admit Provider: Dominic Fong Primary Care Provider: Lakshmi Wharton Other Providers: Dominic Fong ; Lorenzo Jiménez ; Char Brown ; Juan Russell Other Interventions: Discharge Summary Assessment (RN) Last Done: 06/21/22 11:50 Coding Level of Care Code 55663 INP/OBS DISCH >30 MIN Diagnoses Complete heart block I44.2 Diabetes mellitus, type 2 E11.9 COPD, moderate J44.9 Pulmonary valve stenosis I37.0 Cirrhosis of liver K74.60 Hypertension I10 Hypertension type: primary hypertension
--- NOTE | 2022-06-26 13:54 | Coding Query ---
CODING QUERY To promote full compliance with coding requirements relating to patient care, provider participation is requested in all cases of security team lead uncertainty. Please assist us with the question(s) below: JOÃO was documented by Dr. Brown in the critical care consult. JOÃO is not a valid abbreviation. If you agree with the diagnosis of JOÃO, please clarify the abbreviation below. Thank you. ( x ) Acute Kidney Injury ( ) Acute Kidney Insufficiency ( ) Other (Specify): ( ) Disagree with JOÃO as a diagnosis Principal Diagnosis: "that condition established after study, to be chiefly responsible for occasioning the admission of the patient to the hospital for care." Co-Existing Principal Diagnosis: "when two or more diagnoses equally meet the criteria for principal diagnosis as determined by the circumstances of admission, diagnostic work up, and/or therapy provided, and the Alphabetic Index, Tabular List, or another coding guideline does not provide sequencing direction, any one of the diagnoses may be sequenced first." "When the physician has documented what appears to be a current diagnosis in the body of the record, but has not included the diagnosis in the final diagnostic statement, the physician should be asked whether the diagnosis should be added." (Source Coding [facility] 2 QTR90. p3-4) [facility]
== END 2022-06-21 12:34 | disposition home or self-care (01) | DRG 242 ==
LOC: ED 11:40 → CC 14:22 → 1E 14:22 → SUATTDRO 15:18 → 1E 15:18

== ENCOUNTER 2022-07-17 00:24 | Inpatient (IN) ==
[2022-07-17 00:56] LABS: Hematocrit (blood only) 38.6 % (42.0-52.0); Hemoglobin 13.5 g/dl (14.0-18.0); Mean Corpuscular Hemoglobin 31.5 pg (25.0-34.0); Mean Corpuscular Volume 90.2 fL (80.0-100.0); Mean Platelet Volume 10.3 fL (9.4-12.4); Platelet Count 148 K/uL (130-400); RDW Coefficient of Variation 13.1 % (11.5-14.5); RDW Standard Deviation 42.7 fL (36.4-46.3); Red Blood Count 4.28 M/uL (4.70-6.10); White Blood Count 14.84 K/ul (4.8-10.8)
[2022-07-17 01:16] LABS: Basophils # (auto) 0.04 K/uL (0-0.2); Basophils % (auto) 0.3 %; Eosinophils # (auto) 0.06 K/uL (0-0.50); Eosinophils % (auto) 0.4 %; Immature Granulocytes # (auto) 0.36 K/uL (0.01-0.20); Immature Granulocytes % (auto) 2.4 %; Lymphocytes # (auto) 0.43 K/uL (1.2-3.4); Lymphocytes % (auto) 2.9 %; Monocytes # (auto) 0.54 K/uL (0.11-0.59); Monocytes % (auto) 3.6 %; Neutrophils # (auto) 13.41 K/uL (1.40-6.50); Neutrophils % (auto) 90.4 %
[2022-07-17 01:18] LABS: Albumin Globulin Ratio 1.3 (0.9-2); BUN Creatinine Ratio 16.8 (10-20); Bilirubin,Total 0.9 mg/dl (0.2-1.0); Creatinine Clr Calc Pharmacy 77.7 ml/min; Est GFR (African American) 89.8 ml/min; Est GFR (Non-African American) 77.4 ml/min; Globulin 3.1 gm/dl (2.5-4.0); Potassium 4.2 mmol/L (3.5-5.1); Total Protein 7.1 gm/dl (6.0-8.3)
[2022-07-17] MEDS ORDERED: ACETAMINOPHEN 1,000 MG/100 ML VIAL IV STA (01:54)
[2022-07-17] MEDS ORDERED: SODIUM CHLORIDE 0.9% 1000ML 1,000 ML IV SCH (02:00)
[2022-07-17] MEDS ORDERED: CEFEPIME 2,000 MG/20 ML VIAL IV STA (02:53)
--- NOTE | 2022-07-17 03:16 | Emergency Department Note ---
Impression & Plan Generalized weakness, Fall, Hypomagnesemia, Acute UTI (urinary tract infection), Hypoxia ED Provider Note ED Provider Note NAME: LAKEISHA LEAL AGE:76 SEX: Male : 1945 ARRIVES VIA: EMS INFORMANT: Patient ED PROVIDER(s): Yoon Napier DO CHIEF COMPLAINT: Fall HPI: This is a 76-year-old male presents emergency department due to concern following a fall at home. Patient states he had been more tired and weak this evening and had developed shaking chills. He states he got up to go to the bathroom however felt very weak and unsteady and subsequently fell while trying to go to the bathroom landing on his right side. He denies striking his head or losing consciousness. He states he had been urinating frequently this evening since going to bed at 8 PM. Patient states he did have an episode of vomiting in route to the hospital however at this time has no nausea or sense of needing to vomit again. He denies headaches, chest pain, trouble breathing, abdominal pain, neck or back pain, numbness or tingling. Patient did just have a pacemaker placed the beginning of June. He states additional medications were added to his regimen however he felt as though he was doing well. PAST MEDICAL HISTORY:See Below PAST SURGICAL HISTORY:See Below FAMILY HISTORY:See Below SOCIAL HISTORY:See Below HOME MEDICATIONS:See Below ALLERGIES:See Below VITALS:See Below PHYSICAL EXAMINATION: GENERAL: alert, well appearing, well nourished, no distress, non-toxic EYE EXAM: normal conjunctiva, PERRL and EOM's grossly intact OROPHARYNX: no exudate, no erythema, lips, buccal mucosa, and tongue normal and mucous membranes are moist NECK: supple, no nuchal rigidity, no adenopathy, non-tender LUNGS: Clear to auscultation. Normal chest wall mechanics, no w/r/r HEART: no murmurs, S1 normal and S2 normal, pacemaker noted left anterior chest wall, incision well-appearing and healing, no overlying erythema or crepitus ABDOMEN: abdomen soft, non-tender, normo-active bowel sounds, no masses, no db ound or guarding. BACK: Back is symmetrical on inspection and there is no deformity, no midline tenderness, no CVA tenderness. SKIN: no rashes, petechiae, orbruising UPPER EXTREMITIES: upper extremities are grossly normal. FROM, nml pulses b/l. LOWER EXTREMITIES: No pitting edema. FROM, nml pulses b/l. NEURO EXAM: Normal sensorium, cranial nerves II-XII grossly intact, normal speech, no facial droop,nogross weakness of arms, no gross weakness of legs. Gross sensation intact. No ataxia. Vital Signs: reviewed and remarkable Differential Diagnosis: Syncope, occult infection, dehydration, medication ADR, electrolyte abnormality, dysrhythmia, as well as others were concerned MEDICAL DECISION MAKING: This is a 76-year-old male presents emerged department bedside following a fall at home. Patient as well as state he has been weaker more recently and had urinary frequency and urgency this evening additionally. Patient was noted to be febrile and tachycardic on arrival however otherwise hemodynamically stable. Patient noted by nursing staff to have mild hypoxia and was placed on oxygen at 2 L/min although he is denies feeling short of breath. Labs drawn and sent, IV established, EKG and chest x-ray performed at bedside and interpreted by me and patient placed on telemetry. He was started on gentle IV fluid rehydration due to significant cardiac history. Upon discussion at bedside of his symptoms, patient given empiric IV antibiotics. Chest x-ray without evidence of obvious respiratory infection, and no overlying skin changes to suggest evolving pocket infection from recent pacemaker placement. Eventually urine was able to be collected and was concerning for infection. Patient required full two-person assist at bedside as he could not even stand to use the urinal. Patient found to be hypomagnesemic which was repleted through the IV while in the emergency room. Due to concern for evolving infection and significant weakness making discharge home unsafe at this time, case was discussed with hospitalist for additional evaluation and management. Patient and family were updated on all results, verbalized understanding, and were in agreement with the plan. Consultation(s): 0455: Discussed with Dr. Cheung, [facility] hospitalist team ER Treatment Provided: See below 0450: Updated patient and family bedside. Diagnostics Interpreted By Me: -ECG: Paced at 108, prolonged intervals, rightward axis, no acute ST/T wave changes -Cardiac Monitoring: An order was placed for continuous cardiac monitoring. The monitor shows a rate of 82 with paced rhythm. -Laboratory studies: As stated above and show below. -Imaging studies: X-ray Chest: A single view study of the chest was reviewed and was negative for cardiomegaly, focal infiltrate, effusion, pulmonary edema, or wide mediastinum. 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 Family History Other No family history of adverse response to anesthesia Denies family history of Ovarian cancer Prostate cancer Myocardial infarction Breast cancer Colorectal cancer Social History Smoking Status: Former smoker Age Started Using Tobacco: 16; Age Quit Using Tobacco: 26; Smoking End Date: 1973; Second Hand Exposure: No; Hx Alcohol Use: Yes Alcohol type: beer Hx Substance Use: No Preferred Language: Setswana Communication Ability: Effective Information Lead Required: No Beliefs That Will Affect Care: None marital status: Current Living Situation: Spouse current occupational status: retired How many Children do You have: 1 Other Information That Helps Us Care for You: No Feels Safe at Home: Yes Safety Concerns: Feels Safe At This Time Childhood Exposure to Second-Hand Smoke: Yes caffeine: Yes Dental Care, Regularly: No Physical Activity Frequency: Daily Seatbelt Use: always Sunscreen Use: Yes Assistive Devices: Glasses Allergies Allergies Allergy/AdvReac Type Severity Reaction Status Date / Time No Known Allergies Allergy Unknown Verified 07/17/22 00:30 Home Meds Home Medications Medication Instructions Recorded Confirmed lisinopril 20 mg tablet 20 mg PO QPM 06/18/22 07/17/22 metformin 500 mg tablet,extended 1,000 mg PO QPM 06/18/22 07/17/22 release 24 hr Previous Rx's Medication Instructions Recorded atorvastatin 40 mg tablet 40 mg PO QAM #30 tabs 06/21/22 carvedilol 6.25 mg tablet 18.75 mg PO BIDM #60 tabs 06/21/22 ipratropium 20 mcg-albuterol 100 1 puff inhalation .COMPLEX PRN 06/26/22 mcg/actuation mist for inhalation cough #4 grams (Combivent Respimat) Results & Data (ED) Vital Signs Vital Signs - 24 hr 07/17/22 00:31 07/17/22 00:15 07/17/22 00:44 Temperature 38.4 C H Temperature Source Oral Pulse Rate 110 H 105 H Pulse Rate [Apical] Pulse Rhythm [Apical] Respiratory Rate 21 Respiratory Effort / Characteristics Non-Labored Respiratory Depth Normal Blood Pressure 145/74 H Blood Pressure [Right Arm] Blood Pressure Mean 97 Blood Pressure Mean [Right Arm] Pulse Oximetry 92 91 Oxygen Delivery Method Nasal Cannula Nasal Cannula Oxygen Flow Rate 2 2 Sepsis Recent Fever Within 48 Hours Yes Sepsis New/Unexplained Change in Mental Status No Sepsis Action Taken by Nursing Physician Notified 07/17/22 02:15 07/17/22 03:00 07/17/22 03:13 Temperature 37.2 C Temperature Source Oral Pulse Rate Pulse Rate [Apical] 93 H 89 Pulse Rhythm [Apical] Regular Regular Respiratory Rate 30 H 15 Respiratory Effort / Characteristics Non-Labored Respiratory Depth Normal Normal Blood Pressure Blood Pressure [Right Arm] 136/70 122/56 L Blood Pressure Mean Blood Pressure Mean [Right Arm] 92 78 Pulse Oximetry 95 95 Oxygen Delivery Method Room Air Nasal Cannula Oxygen Flow Rate 2 Sepsis Recent Fever Within 48 Hours Sepsis New/Unexplained Change in Mental Status Sepsis Action Taken by Nursing 07/17/22 03:49 07/17/22 03:54 07/17/22 05:00 Temperature Temperature Source Pulse Rate Pulse Rate [Apical] 86 85 87 Pulse Rhythm [Apical] Respiratory Rate 15 16 14 Respiratory Effort / Characteristics Respiratory Depth Blood Pressure Blood Pressure [Right Arm] 114/63 114/63 102/61 Blood Pressure Mean Blood Pressure Mean [Right Arm] 80 80 74 Pulse Oximetry 95 97 96 Oxygen Delivery Method Nasal Cannula Room Air Oxygen Flow Rate 2 Sepsis Recent Fever Within 48 Hours Sepsis New/Unexplained Change in Mental Status Sepsis Action Taken by Nursing Laboratory Data 07/17/22 00:39 07/17/22 00:39 Lab Results 07/17/22 07/17/22 07/17/22 Range/Units 00:39 00:39 00:39 WBC 14.84 H (4.8-10.8) K/ul RBC 4.28 L (4.70-6.10) M/uL Hgb 13.5 L (14.0-18.0) g/dl Hct 38.6 L (42.0-52.0) % MCV 90.2 (80.0-100.0) fL MCH 31.5 (25.0-34.0) pg MCHC 35.0 (32.0-36.0) g/dL RDW Std Deviation 42.7 (36.4-46.3) fL RDW Coeff of Timbo 13.1 (11.5-14.5) % Plt Count 148 (130-400) K/uL MPV 10.3 (9.4-12.4) fL Immature Gran % (Auto) 2.4 % Neut % (Auto) 90.4 % Lymph % (Auto) 2.9 % [place] % (Auto) 3.6 % Eos % (Auto) 0.4 % Baso % (Auto) 0.3 % Neut # (Auto) 13.41 H (1.40-6.50) K/uL Lymph # (Auto) 0.43 L (1.2-3.4) K/uL [place] # (Auto) 0.54 (0.11-0.59) K/uL Eos # (Auto) 0.06 (0-0.50) K/uL Baso # (Auto) 0.04 (0-0.2) K/uL Immature Gran # (Auto) 0.36 H (0.01-0.20) K/uL Sodium 137 (136-145) mmol/L Potassium 4.2 (3.5-5.1) mmol/L Chloride 104 (98-107) mmol/L Carbon Dioxide 21 (21-32) mmol/L Anion Gap 12 H (3-11) BUN 16 (6-23) mg/dl Creatinine 0.95 (0.6-1.4) mg/dl Est Cr Clr Drug Dosing 77.7 ml/min Est GFR ( Amer) 89.8 ml/min Est GFR (Non-Af Amer) 77.4 ml/min BUN/Creatinine Ratio 16.8 (10-20) Glucose 152 H (70-99(Fasting)) mg/dl Lactate (0.4-2.0) mmol/L Calcium 9.0 (8.6-10.3) mg/dl Magnesium 1.5 L (1.7-2.4) mg/dl Total Bilirubin 0.9 (0.2-1.0) mg/dl AST 33 (13-39) U/L ALT 23 (7-52) U/L Alkaline Phosphatase 94 (34-104) U/L Troponin I High Sens 108.4 H* (0-20) pg/ml Total Protein 7.1 (6.0-8.3) gm/dl Albumin 4.0 (3.4-5.0) gm/dl Globulin 3.1 (2.5-4.0) gm/dl Albumin/Globulin Ratio 1.3 (0.9-2) Procalcitonin 0.05 (0-0.5) ng/ml TSH (0.300-4.500) uIu/ml Urine Color Urine Appearance (Clear) Urine pH (4.5-7.5) Ur Specific Doyle (1.000-1.030) Urine Protein (Negative) Urine Glucose (UA) (Negative) Urine Ketones (Negative) Urine Blood (Negative) Urine Nitrite (Negative) Urine Bilirubin (Negative) Urine Urobilinogen (Negative) Ur Leukocyte Esterase (Negative) Urine WBC (Auto) (0-5) /hpf Urine RBC (Auto) (0-4) /hpf U Hyaline Cast (Auto) (0-5) /lpf U Epithel Cells (Auto) (0-5) /lpf Urine Bacteria (Auto) (Negative) SARS-CoV-2 (PCR) (Negative) Influenza Type A (PCR) (Neg) Influenza Type B (PCR) (Neg) RSV (RT-PCR) (Neg) 07/17/22 07/17/22 07/17/22 Range/Units 00:39 03:25 04:42 WBC (4.8-10.8) K/ul RBC (4.70-6.10) M/uL Hgb (14.0-18.0) g/dl Hct (42.0-52.0) % MCV (80.0-100.0) fL MCH (25.0-34.0) pg MCHC (32.0-36.0) g/dL RDW Std Deviation (36.4-46.3) fL RDW Coeff of Timbo (11.5-14.5) % Plt Count (130-400) K/uL MPV (9.4-12.4) fL Immature Gran % (Auto) % Neut % (Auto) % Lymph % (Auto) % [place] % (Auto) % Eos % (Auto) % Baso % (Auto) % Neut # (Auto) (1.40-6.50) K/uL Lymph # (Auto) (1.2-3.4) K/uL [place] # (Auto) (0.11-0.59) K/uL Eos # (Auto) (0-0.50) K/uL Baso # (Auto) (0-0.2) K/uL Immature Gran # (Auto) (0.01-0.20) K/uL Sodium (136-145) mmol/L Potassium (3.5-5.1) mmol/L Chloride (98-107) mmol/L Carbon Dioxide (21-32) mmol/L Anion Gap (3-11) BUN (6-23) mg/dl Creatinine (0.6-1.4) mg/dl Est Cr Clr Drug Dosing ml/min Est GFR ( Amer) ml/min Est GFR (Non-Af Amer) ml/min BUN/Creatinine Ratio (10-20) Glucose (70-99(Fasting)) mg/dl Lactate 1.6 (0.4-2.0) mmol/L Calcium (8.6-10.3) mg/dl Magnesium (1.7-2.4) mg/dl Total Bilirubin (0.2-1.0) mg/dl AST (13-39) U/L ALT (7-52) U/L Alkaline Phosphatase (34-104) U/L Troponin I High Sens (0-20) pg/ml Total Protein (6.0-8.3) gm/dl Albumin (3.4-5.0) gm/dl Globulin (2.5-4.0) gm/dl Albumin/Globulin Ratio (0.9-2) Procalcitonin (0-0.5) ng/ml TSH 3.293 (0.300-4.500) uIu/ml Urine Color Yellow Urine Appearance Cloudy A (Clear) Urine pH 6.0 (4.5-7.5) Ur Specific Doyle 1.027 (1.000-1.030) Urine Protein 1+ H (Negative) Urine Glucose (UA) Negative (Negative) Urine Ketones Trace H (Negative) Urine Blood 2+ H (Negative) Urine Nitrite Negative (Negative) Urine Bilirubin Negative (Negative) Urine Urobilinogen Negative (Negative) Ur Leukocyte Esterase 2+ H (Negative) Urine WBC (Auto) >30 H (0-5) /hpf Urine RBC (Auto) >30 H (0-4) /hpf U Hyaline Cast (Auto) 1-5 (0-5) /lpf U Epithel Cells (Auto) 0-5 (0-5) /lpf Urine Bacteria (Auto) 1+ H (Negative) SARS-CoV-2 (PCR) (Negative) Influenza Type A (PCR) (Neg) Influenza Type B (PCR) (Neg) RSV (RT-PCR) (Neg) 07/17/22 Range/Units 05:16 WBC (4.8-10.8) K/ul RBC (4.70-6.10) M/uL Hgb (14.0-18.0) g/dl Hct (42.0-52.0) % MCV (80.0-100.0) fL MCH (25.0-34.0) pg MCHC (32.0-36.0) g/dL RDW Std Deviation (36.4-46.3) fL RDW Coeff of Timbo (11.5-14.5) % Plt Count (130-400) K/uL MPV (9.4-12.4) fL Immature Gran % (Auto) % Neut % (Auto) % Lymph % (Auto) % [place] % (Auto) % Eos % (Auto) % Baso % (Auto) % Neut # (Auto) (1.40-6.50) K/uL Lymph # (Auto) (1.2-3.4) K/uL [place] # (Auto) (0.11-0.59) K/uL Eos # (Auto) (0-0.50) K/uL Baso # (Auto) (0-0.2) K/uL Immature Gran # (Auto) (0.01-0.20) K/uL Sodium (136-145) mmol/L Potassium (3.5-5.1) mmol/L Chloride (98-107) mmol/L Carbon Dioxide (21-32) mmol/L Anion Gap (3-11) BUN (6-23) mg/dl Creatinine (0.6-1.4) mg/dl Est Cr Clr Drug Dosing ml/min Est GFR ( Amer) ml/min Est GFR (Non-Af Amer) ml/min BUN/Creatinine Ratio (10-20) Glucose (70-99(Fasting)) mg/dl Lactate (0.4-2.0) mmol/L Calcium (8.6-10.3) mg/dl Magnesium (1.7-2.4) mg/dl Total Bilirubin (0.2-1.0) mg/dl AST (13-39) U/L ALT (7-52) U/L Alkaline Phosphatase (34-104) U/L Troponin I High Sens (0-20) pg/ml Total Protein (6.0-8.3) gm/dl Albumin (3.4-5.0) gm/dl Globulin (2.5-4.0) gm/dl Albumin/Globulin Ratio (0.9-2) Procalcitonin (0-0.5) ng/ml TSH (0.300-4.500) uIu/ml Urine Color Urine Appearance (Clear) Urine pH (4.5-7.5) Ur Specific Doyle (1.000-1.030) Urine Protein (Negative) Urine Glucose (UA) (Negative) Urine Ketones (Negative) Urine Blood (Negative) Urine Nitrite (Negative) Urine Bilirubin (Negative) Urine Urobilinogen (Negative) Ur Leukocyte Esterase (Negative) Urine WBC (Auto) (0-5) /hpf Urine RBC (Auto) (0-4) /hpf U Hyaline Cast (Auto) (0-5) /lpf U Epithel Cells (Auto) (0-5) /lpf Urine Bacteria (Auto) (Negative) SARS-CoV-2 (PCR) NEGATIVE (Negative) Influenza Type A (PCR) Negative (Neg) Influenza Type B (PCR) Negative (Neg) RSV (RT-PCR) Negative (Neg) Administered Medications Atorvastatin Calcium ([facility]atin 40 Mg Tab) [facility] [place] 08/16/22 09:20 Last Admin: 07/17/22 10:54 Dose: 40 mg Documented By: MT Carvedilol (Carvedilol 6.25 Mg Tab) 18.75 mg PO BIDM [facility] Stop: 08/16/22 09:20 Last Admin: 07/17/22 18:07 Dose: 18.75 mg Documented By: Admin: 07/17/22 10:55 Dose: 18.75 mg Documented By: ABE Enoxaparin Sodium (Enoxaparin Inj 40 Mg/0.4 Ml Syr) 40 mg SQ QAM [facility] Stop: 08/16/22 09:29 Last Admin: 07/17/22 10:57 Dose: 40 mg Documented By: ABE Ceftriaxone Sodium 2,000 mg/ (Dextrose) 70 mls @ 100 mls/hr IV Q24H [facility]; Protocol Stop: 07/27/22 09:29 Last Infusion: 07/17/22 13:15 Dose: 0 mls/hr Documented By: Admin: 07/17/22 10:08 Dose: 100 mls/hr Documented By: ABE Insulin Aspart (Insulin Aspart Per Unit Charge) 0 units SC ACHS [facility] Stop: 08/16/22 09:20 Last Admin: 07/17/22 21:33 Dose: Not Given Documented By: ELVIA Co-signed By: LILI Admin: 07/17/22 18:12 Dose: 1 units Documented By: SIMA Co-signed By: ARIS Admin: 07/17/22 13:14 Dose: Not Given Documented By: Admin: 07/17/22 10:14 Dose: Not Given Documented By: ABE Co-signed By: MIHIR Lisinopril (Lisinopril 20 Mg Tab) 20 mg PO QPM [facility] Stop: 08/16/22 20:59 Last Admin: 07/17/22 20:48 Dose: 20 mg Documented By: ELVIA Discontinued Medications Acetaminophen (Ofirmev) 1,000 mg in 100 mls @ 400 mls/hr IV NOW STA Stop: 07/17/22 02:08 Last Infusion: 07/17/22 02:31 Dose: 0 mls/hr Documented By: Admin: 07/17/22 02:15 Dose: 400 mls/hr Documented By: PENELOPE Sodium Chloride (Nss 1000ml) 1,000 mls @ 125 mls/hr IV .Q8H [facility] Stop: 08/16/22 01:59 Last Infusion: 07/17/22 10:52 Dose: 0 mls/hr Documented By: Admin: 07/17/22 02:16 Dose: 125 mls/hr Documented By: PENELOPE Cefepime HCl (Maxipime) 2,000 mg in 20 mls @ 5 mls/min IV NOW STA; Protocol Stop: 07/17/22 02:56 Last Admin: 07/17/22 03:41 Dose: 5 mls/min Documented By: PENELOPE Magnesium Sulfate/Dextrose (Magnesium Sulfate / D5w) 1 gm in 100 mls @ 100 mls/hr IV NOW STA Stop: 07/17/22 06:49 Last Infusion: 07/17/22 07:33 Dose: 0 mls/hr Documented By: Admin: 07/17/22 06:23 Dose: 100 mls/hr Documented By: PENELOPE Magnesium Sulfate/Dextrose (Magnesium Sulfate / D5w) 1 gm in 100 mls @ 50 mls/hr IV Q2H [facility] Stop: 07/17/22 13:29 Last Infusion: 07/17/22 17:11 Dose: 0 mls/hr Documented By: Admin: 07/17/22 13:48 Dose: 50 mls/hr Documented By: Infusion: 07/17/22 12:58 Dose: 50 mls/hr Documented By: Admin: 07/17/22 10:58 Dose: 50 mls/hr Documented By: ABE Ioversol (Optiray 350 100ml) 90 ml IV ONCE ONE Stop: 07/17/22 04:35 Last Admin: 07/17/22 04:34 Dose: 90 ml Documented By: WALT Discharge Plan Visit Data Chief Complaint: Fall ED Provider: Yoon Napier Discharge Problem: Generalized weakness, Fall, Hypomagnesemia, Acute UTI (urinary tract infection), Hypoxia Patient Disposition: Admitted As Inpatient Discharge Instructions Interventions: ED Discharge Assessment Last Done: 07/17/22 15:03
[2022-07-17 03:39] LABS: Appearance Urine Cloudy (Clear); Bacteria Urine Automated 1+ (Negative); Bilirubin Urine Negative (Negative); Blood Urine 2+ (Negative); Color Urine Yellow; Epithelial Cell Urine Auto 0-5 /lpf (0-5); Glucose Urine UA Negative (Negative); Ketones Urine Trace (Negative); Leukocyte Esterase Urine 2+ (Negative); Nitrite Urine Negative (Negative); Protein Urine 1+ (Negative); RBC Urine Automated >30 /hpf (0-4); Specific Gravity Urine 1.027 (1.000-1.030); Urobilinogen Urine Negative (Negative); WBC Urine Automated >30 /hpf (0-5)
[2022-07-17] MEDS ORDERED: OPTIRAY 350 100ml IV ONE (04:34)
[2022-07-17 05:07] LABS: Magnesium 1.5 mg/dl (1.7-2.4)
--- NOTE | 2022-07-17 05:46 | History & Physical Report ---
Date of Service July 17, 2022 Assessment & Plan (1) Acute UTI (urinary tract infection): Plan: Patient febrile on arrival, HD stable. WBC elevated at 14.8. UA suggestive of infection. CT suggestive of cystitis as well Cefepime given in ER x 1 dose -Continue Ceftriaxone -Tailor antibiotics pending culture data, sensitivities/specificities -Tylenol as needed for pain or fever -PT/OT evaluation for generalized weakness (2) Cardiomyopathy: Plan: Compensated -Continue Carvedilol (3) Complete heart block: Plan: s/p Pacemaker (4) COPD, moderate: Plan: Chronic. No cough, SOB or wheeze. Adequate oxygenation. He did have a brief episode of hypoxia with saturations of 88% and was placed on supplemental O2 -Continue Combivent -Wean O2 as tolerated - goal saturation 88-92% (5) Hyperlipidemia: Plan: Chronic -Continue Atorvastatin (6) Diabetes mellitus, type 2: Plan: Well controlled on Metformin. -ISS (7) Cirrhosis of liver: Plan: Compensated -Monitor (8) Hypertension: Plan: Blood pressure well controlled -Continue Lisinopril -Continue Carvedilol F/E/N - Heplock. Mg repletion x 2 gm, repeat level in AM, CC diet as tolerated Ppx - Lovenox Code - Full DIspo - Admit to medical History of Present Illness Chief Complaint: Fall Primary Care Provider: DIEUDONNE Longo 76yo male with history of DM, CHF presenting from home after a fall. Patient has had some recent urinary symptoms - increased frequency, urgency and dysuria. Also with fever and shaking chills, increased weakness. Got up multiple times this evening to urinate and had a fall in the bedroom - unable to get up. No LOC or head trauma. Patient denies worsening back pain, chest pain, SOB or diarrhea He has had some nausea and non-bloody vomiting as well. Febrile by EMS to 102 per family Generalized weakness, unable to stand or ambulate without assistance ER Course: Zofran Cefepime Allergies Allergy/AdvReac Type Severity Reaction Status Date / Time No Known Allergies Allergy Unknown Verified 07/17/22 00:30 Home Medications Medication Instructions Recorded Confirmed Type lisinopril 20 mg tablet 20 mg PO QPM 06/18/22 07/17/22 History metformin 500 mg tablet,extended 1,000 mg PO QPM 06/18/22 07/17/22 History release 24 hr atorvastatin 40 mg tablet 40 mg PO QAM #30 tabs 06/21/22 07/17/22 Rx carvedilol 6.25 mg tablet 18.75 mg PO BIDM #60 tabs 06/21/22 07/17/22 Rx ipratropium 20 mcg-albuterol 100 1 puff inhalation .COMPLEX PRN 06/26/22 07/17/22 Rx mcg/actuation mist for inhalation cough #4 grams (Combivent Respimat) Past Med/Surg History Medical History Blood in stool Cardiomyopathy Diabetes mellitus, type 2 Surgical History History of eye surgery left eye "cut retina open" History of open heart surgery 1971 @ [facility] – [place] "valve was growing shut, went in and opened it up"--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 Family History Other No family history of adverse response to anesthesia Denies family history of Ovarian cancer Prostate cancer Myocardial infarction Breast cancer Colorectal cancer Social History Smoking Status: Never smoker Age Started Using Tobacco: 16; Age Quit Using Tobacco: 26; Second Hand Exposure: No; Hx Alcohol Use: Yes Alcohol type: beer Hx Substance Use: No Preferred Language: Algerian Communication Ability: Effective E Commerce Architect Required: No Beliefs That Will Affect Care: None marital status: Current Living Situation: Spouse current occupational status: retired How many Children do You have: 1 Feels Safe at Home: Yes Childhood Exposure to Second-Hand Smoke: Yes caffeine: Yes Dental Care, Regularly: No Physical Activity Frequency: Daily Seatbelt Use: always Sunscreen Use: Yes Assistive Devices: None Review of Systems Review of Systems: All systems reviewed & are unremarkable except as noted in HPI & below Physical Exam Physical Exam: General: patient resting comfortably, NAD, non-toxic in appearance, AA&O x 4 Skin: warm, dry, intact, no rashes or lesions HEENT: NC/AT, PERRL, EOMI, anicteric sclera, conjunctiva without injection, external ear normal to inspection and nontender, nares patent, moist mucus membranes, dentition intact, no oropharyngeal lesions, neck supple, trachea midline, no LAD, no thyromegaly, no JVD Heart: +S1/S2, regular, no m/r/g Lungs: equal air entry bilaterally, no rales/rhonchi/wheezes Abd: +BS, soft, NT/ND, no masses/organomegaly/ascites Ext: warm, 2+ pulses in UE/LE bilaterally, no clubbing/cyanosis or edema Neuro: nonfocal, patient AA&O x 4, speech intact, no facial droop, moving all extremities on command with equal strength 5/5 Results & Data Results & Data Vital Signs (Past 12 Hours) Vital Signs Temp Pulse Pulse Resp BP BP Pulse Ox 07/17/22 05:00 87 14 102/61 96 07/17/22 03:54 85 16 114/63 97 07/17/22 03:49 86 15 114/63 95 07/17/22 03:13 37.2 C 07/17/22 03:00 89 15 122/56 L 95 07/17/22 02:15 93 H 30 H 136/70 95 07/17/22 00:44 91 07/17/22 00:15 38.4 C H 105 H 21 145/74 H 92 07/17/22 00:31 110 H O2 Del Method O2 Flow Rate 07/17/22 05:00 Room Air 07/17/22 03:54 07/17/22 03:49 Nasal Cannula 2 07/17/22 03:13 07/17/22 03:00 Nasal Cannula 2 07/17/22 02:15 Room Air 07/17/22 00:44 Nasal Cannula 2 07/17/22 00:15 Nasal Cannula 2 07/17/22 00:31 Laboratory Results Laboratory Results WBC 14.84 K/ul (4.8-10.8) H 07/17/22 00:39 RBC 4.28 M/uL (4.70-6.10) L 07/17/22 00:39 Hgb 13.5 g/dl (14.0-18.0) L 07/17/22 00:39 Hct 38.6 % (42.0-52.0) L 07/17/22 00:39 MCV 90.2 fL (80.0-100.0) 07/17/22 00:39 MCH 31.5 pg (25.0-34.0) 07/17/22 00:39 MCHC 35.0 g/dL (32.0-36.0) 07/17/22 00:39 RDW Std Deviation 42.7 fL (36.4-46.3) 07/17/22 00:39 RDW Coeff of Timbo 13.1 % (11.5-14.5) 07/17/22 00:39 Plt Count 148 K/uL (130-400) 07/17/22 00:39 MPV 10.3 fL (9.4-12.4) 07/17/22 00:39 Immature Gran % (Auto) 2.4 % 07/17/22 00:39 Neut % (Auto) 90.4 % 07/17/22 00:39 Lymph % (Auto) 2.9 % 07/17/22 00:39 Johnson % (Auto) 3.6 % 07/17/22 00:39 Eos % (Auto) 0.4 % 07/17/22 00:39 Baso % (Auto) 0.3 % 07/17/22 00:39 Neut # (Auto) 13.41 K/uL (1.40-6.50) H 07/17/22 00:39 Lymph # (Auto) 0.43 K/uL (1.2-3.4) L 07/17/22 00:39 Johnson # (Auto) 0.54 K/uL (0.11-0.59) 07/17/22 00:39 Eos # (Auto) 0.06 K/uL (0-0.50) 07/17/22 00:39 Baso # (Auto) 0.04 K/uL (0-0.2) 07/17/22 00:39 Immature Gran # (Auto) 0.36 K/uL (0.01-0.20) H 07/17/22 00:39 Sodium 137 mmol/L (136-145) 07/17/22 00:39 Potassium 4.2 mmol/L (3.5-5.1) 07/17/22 00:39 Chloride 104 mmol/L (98-107) 07/17/22 00:39 Carbon Dioxide 21 mmol/L (21-32) 07/17/22 00:39 Anion Gap 12 (3-11) H 07/17/22 00:39 BUN 16 mg/dl (6-23) 07/17/22 00:39 Creatinine 0.95 mg/dl (0.6-1.4) 04 00:39 Est Cr Clr Drug Dosing 77.7 ml/min 04 00:39 Est GFR ( Amer) 89.8 ml/min 04 00:39 Est GFR (Non-Af Amer) 77.4 ml/min 04 00:39 BUN/Creatinine Ratio 16.8 (10-20) 07/17/22 00:39 Glucose 152 mg/dl (70-99(Fasting)) H 07/17/22 00:39 Lactate 1.6 mmol/L (0.4-2.0) 07/17/22 04:42 Calcium 9.0 mg/dl (8.6-10.3) 07/17/22 00:39 Magnesium 1.5 mg/dl (1.7-2.4) L 07/17/22 00:39 Total Bilirubin 0.9 mg/dl (0.2-1.0) 07/17/22 00:39 AST 33 U/L (13-39) 07/17/22 00:39 ALT 23 U/L (7-52) 07/17/22 00:39 Alkaline Phosphatase 94 U/L (34-104) 07/17/22 00:39 Troponin I High Sens 108.4 pg/ml (0-20) H* 07/17/22 00:39 Total Protein 7.1 gm/dl (6.0-8.3) 07/17/22 00:39 Albumin 4.0 gm/dl (3.4-5.0) 07/17/22 00:39 Globulin 3.1 gm/dl (2.5-4.0) 07/17/22 00:39 Albumin/Globulin Ratio 1.3 (0.9-2) 07/17/22 00:39 Procalcitonin 0.05 ng/ml (0-0.5) 07/17/22 00:39 TSH 3.293 uIu/ml (0.300-4.500) 07/17/22 00:39 Urine Color Yellow 07/17/22 03:25 Urine Appearance Cloudy (Clear) A 07/17/22 03:25 Urine pH 6.0 (4.5-7.5) 07/17/22 03:25 Ur Specific [place] 1.027 (1.000-1.030) 07/17/22 03:25 Urine Protein 1+ (Negative) H 07/17/22 03:25 Urine Glucose (UA) Negative (Negative) 07/17/22 03:25 Urine Ketones Trace (Negative) H 07/17/22 03:25 Urine Blood 2+ (Negative) H 07/17/22 03:25 Urine Nitrite Negative (Negative) 07/17/22 03:25 Urine Bilirubin Negative (Negative) 07/17/22 03:25 Urine Urobilinogen Negative (Negative) 07/17/22 03:25 Ur Leukocyte Esterase 2+ (Negative) H 07/17/22 03:25 Urine WBC (Auto) >30 /hpf (0-5) H 07/17/22 03:25 Urine RBC (Auto) >30 /hpf (0-4) H 07/17/22 03:25 U Hyaline Cast (Auto) 1-5 /lpf (0-5) 07/17/22 03:25 U Epithel Cells (Auto) 0-5 /lpf (0-5) 07/17/22 03:25 Urine Bacteria (Auto) 1+ (Negative) H 07/17/22 03:25 Impressions Abdomen/Pelvis CT 07/17/22 03:53 Exam(s): CT ABDOMEN + PELVIS With Contrast IV Amt: 90ml Optiray 350 EXAM: CT Abdomen and Pelvis With Intravenous Contrast CLINICAL HISTORY: Reason for exam: uti. TECHNIQUE: Axial computed tomography images of the abdomen and pelvis with intravenous contrast. Automated exposure control was utilized for the study. A dose lowering technique was utilized adhering to the principles of ALARA. CONTRAST: Patient received 90ml Optiray 350 of IV contrast COMPARISON: No relevant prior studies available. FINDINGS: Artifacts: Some artifact from patient's arms in the upper/mid abdomen. Lung bases: Mild bibasilar atelectasis. ABDOMEN: Liver: Nodular, cirrhotic liver. Gallbladder and bile ducts: Unremarkable. No calcified stones. No ductal dilation. Pancreas: Unremarkable. No mass. No ductal dilation. Spleen: Unremarkable. No splenomegaly. Adrenals: Unremarkable. No mass. Kidneys and ureters: Unremarkable. No solid mass. No hydronephrosis. Stomach and bowel: Colonic diverticulosis. No obstruction. No mucosal thickening. PELVIS: Appendix: Normal appendix. Bladder: Bladder wall thickening versus nondistended urinary bladder. Reproductive: Unremarkable as visualized. ABDOMEN and PELVIS: Intraperitoneal space: See above. Bones/joints: No acute fracture. No dislocation. Soft tissues: Unremarkable. Vasculature: Unremarkable. No abdominal aortic aneurysm. Lymph nodes: Unremarkable. No enlarged lymph nodes. Tubes, lines and devices: Cardiac pacemaker leads. IMPRESSION: 1. Bladder wall thickening versus nondistended urinary bladder. May correlate with cystitis. 2. Nodular, cirrhotic liver. Electronically signed by: Kenji Garnica M.D. 07/17/22 06:02 AM PG Care Time/CCT Total # of Minutes Spent Total Time Spent with Patient: Total time spent is greater than 50% in coordination of care (as documented) at patient's floor/unit and/or counseling patient: Coding Level of Care Code 07329 INT INP/OBS CARE 3/75MIN Diagnoses Acute UTI (urinary tract infection) N39.0 Cardiomyopathy I42.0 Cardiomyopathy type: dilated Complete heart block I44.2 COPD, moderate J44.9 Hyperlipidemia E78.5 Diabetes mellitus, type 2 E11.9 Cirrhosis of liver K74.60 Hypertension I10 Hypertension type: primary hypertension (2) Cardiomyopathy Cardiomyopathy type: dilated Qualified Code(s): I42.0 - Dilated cardiomyopathy (8) Hypertension Hypertension type: primary hypertension Qualified Code(s): I10 - Essential (primary) hypertension
[2022-07-17] MEDS ORDERED: MAGNESIUM SULFATE / D5W 1 GM/100 ML BAG IV STA (05:50)
--- NOTE | 2022-07-17 06:03 | CT Scan Report ---
Exam(s): CT ABDOMEN + PELVIS With Contrast IV Amt: 90ml Optiray 350 EXAM: CT Abdomen and Pelvis With Intravenous Contrast CLINICAL HISTORY: Reason for exam: uti. TECHNIQUE: Axial computed tomography images of the abdomen and pelvis with intravenous contrast. Automated exposure control was utilized for the study. A dose lowering technique was utilized adhering to the principles of ALARA. CONTRAST: Patient received 90ml Optiray 350 of IV contrast COMPARISON: No relevant prior studies available. FINDINGS: Artifacts: Some artifact from patient's arms in the upper/mid abdomen. Lung bases: Mild bibasilar atelectasis. ABDOMEN: Liver: Nodular, cirrhotic liver. Gallbladder and bile ducts: Unremarkable. No calcified stones. No ductal dilation. Pancreas: Unremarkable. No mass. No ductal dilation. Spleen: Unremarkable. No splenomegaly. Adrenals: Unremarkable. No mass. Kidneys and ureters: Unremarkable. No solid mass. No hydronephrosis. Stomach and bowel: Colonic diverticulosis. No obstruction. No mucosal thickening. PELVIS: Appendix: Normal appendix. Bladder: Bladder wall thickening versus nondistended urinary bladder. Reproductive: Unremarkable as visualized. ABDOMEN and PELVIS: Intraperitoneal space: See above. Bones/joints: No acute fracture. No dislocation. Soft tissues: Unremarkable. Vasculature: Unremarkable. No abdominal aortic aneurysm. Lymph nodes: Unremarkable. No enlarged lymph nodes. Tubes, lines and devices: Cardiac pacemaker leads. IMPRESSION: 1. Bladder wall thickening versus nondistended urinary bladder. May correlate with cystitis. 2. Nodular, cirrhotic liver. Electronically signed by: Kenji Garnica M.D. 07/17/22 06:02 AM
[2022-07-17 06:56] LABS: Influenza A virus by PCR Negative (Neg); Influenza B virus by PCR Negative (Neg); RSV by PCR Negative (Neg); SARS CoV2 RNA(COVID-19) Ceph NEGATIVE (Negative)
[2022-07-17 07:22] LABS: Troponin I High Sensitivity 108.4 pg/ml (0-20)
--- NOTE | 2022-07-17 08:27 | XRay Report ---
XR chest 1V portable HISTORY: weakness COMPARISON: Chest 06/21/2022. FINDINGS: No pneumothorax. No pleural effusions. There are low lung volumes. A few left basilar linea r densities which favor subsegmental atelectasis or scarring. Otherwise, the lungs are clear. No evid ence for pulmonary edema. Left-sided pacemaker and poststernotomy changes again noted. The heart aracely ins mildly enlarged. IMPRESSION: Stable mild cardiomegaly. Otherwise, no acute process within the chest. ACT 112: Negative or not required by law. Electronically signed by: Evangelist Silver M.D. 07/17/2022 8:25 AM
[2022-07-17] MEDS ORDERED: GLUCAGON FOR INJ 1 MG VIAL SQ PRN (09:21)
[2022-07-17] MEDS ORDERED: GLUCOSE 40% GEL 15 GM TUBE PO PRN (09:21)
[2022-07-17] MEDS ORDERED: CARBOHYDRATES FOR HYPOGLYCEMIA PO PRN (09:21)
[2022-07-17] MEDS ORDERED: ONDANSETRON INJ 2 MG/ML 2 ML VIAL IV PRN (09:21)
[2022-07-17] MEDS ORDERED: DEXTROSE 50% 50 ML SYRINGE IV PRN (09:21)
[2022-07-17] MEDS ORDERED: IPRATROPIUM BROMIDE/ALBUTEROL respimat INH INH PRN (09:21)
[2022-07-17] MEDS ORDERED: GLUCOSE 10 TAB/TUBE PO PRN (09:21)
[2022-07-17] MEDS ORDERED: ACETAMINOPHEN 325 MG TAB PO PRN (09:21)
[2022-07-17] MEDS: cefTRIAXone SODIUM 2,000 MG in DEXTROSE 5% 50 ML IV SCH (10:08)
[2022-07-17] MEDS: INSULIN ASPART PER UNIT CHARGE SC SCH ×4 (10:14→21:33)
[2022-07-17] MEDS: ATORVASTATIN 40 MG TAB PO SCH (10:54)
[2022-07-17] MEDS: carvediloL 6.25 MG TAB PO SCH ×2 (10:55→18:07)
[2022-07-17] MEDS: ENOXAPARIN INJ 40 MG/0.4 ML SYR SQ SCH (10:57)
[2022-07-17] MEDS: MAGNESIUM SULFATE / D5W 1 GM/100 ML BAG IV SCH ×2 (10:58→13:48)
[2022-07-17] MEDS ORDERED: IPRATROPIUM BROMIDE HFA INHALER INH PRN (12:36)
[2022-07-17] MEDS ORDERED: ALBUTEROL HFA 8 GM INHALER INH PRN (12:37)
--- NOTE | 2022-07-17 13:06 | Electrocardiogram Report ---
Test Reason : Blood Pressure : / mmHG Vent. Rate : 108 BPM Atrial Rate : 108 BPM P-R Int : 124 ms QRS Dur : 150 ms QT Int : 386 ms P-R-T Axes : 112 247 067 degrees QTc Int : 517 ms Atrial-sensed ventricular-paced rhythm Biventricular pacemaker detected Abnormal ECG When compared with ECG of 20-JUN-2022 17:04, Vent. rate has increased BY 40 BPM Confirmed by Jose Cruz Aparicio ([id number]) on 07/17/2022 1:06:14 PM Referred By: REFERRED SELF Confirmed By:Jose Cruz Aparicio
--- NOTE | 2022-07-17 15:25 | Communication Note ---
Date of Service: July 17, 2022 Please refer to the H&P dictated by Dr. Breann Cheung for details of presentation on admission earlier this morning. Patient had urinary frequency overnight, went to the bathroom, fell and came to the emergency room. He had fever, generalized weakness and was found to have a urinary tract infection. She was started on ceftriaxone. Blood culture growing gram-negative gadiel. The patient says that he is feeling much better compared to when he first came to the emergency room. My plan is to continue IV antibiotics and follow-up on cultures and sensitivities. PT/OT consulted.
[2022-07-17] MEDS ORDERED: lisinopril 20 MG TAB PO SCH (21:00)
[2022-07-18 07:42] LABS: Calcium 8.6 mg/dl (8.6-10.3); Creatinine Clr Calc Pharmacy 83.8 ml/min; Est GFR (African American) 97.2 ml/min; Est GFR (Non-African American) 83.8 ml/min; Magnesium 2.4 mg/dl (1.7-2.4); Potassium 3.7 mmol/L (3.5-5.1)
[2022-07-18 07:52] LABS: Hematocrit (blood only) 34.4 % (42.0-52.0); Hemoglobin 11.9 g/dl (14.0-18.0); Mean Corpuscular Hemoglobin 31.2 pg (25.0-34.0); Mean Corpuscular Hgb Conc 34.6 g/dL (32.0-36.0); Mean Corpuscular Volume 90.3 fL (80.0-100.0); Mean Platelet Volume 10.6 fL (9.4-12.4); Platelet Count 98 K/uL (130-400); RDW Standard Deviation 42.8 fL (36.4-46.3); Red Blood Count 3.81 M/uL (4.70-6.10); White Blood Count 11.83 K/ul (4.8-10.8)
[2022-07-18] MEDS: carvediloL 6.25 MG TAB PO SCH ×2 (08:38→18:13)
[2022-07-18] MEDS: INSULIN ASPART PER UNIT CHARGE SC SCH ×4 (08:38→20:53)
[2022-07-18] MEDS: ATORVASTATIN 40 MG TAB PO SCH (08:39)
[2022-07-18] MEDS: ENOXAPARIN INJ 40 MG/0.4 ML SYR SQ SCH (08:39)
[2022-07-18] MEDS: cefTRIAXone SODIUM 2,000 MG in DEXTROSE 5% 50 ML IV SCH (08:47)
[2022-07-18] MEDS ORDERED: SODIUM CHLORIDE 0.9% 500 ML IV SCH (17:30)
--- NOTE | 2022-07-18 17:32 | Hospitalist Progress Note ---
Date of Service July 18, 2022 Assessment & Plan (1) Sepsis: Plan: 2nd to gram negative gadiel UTI improving blood cx's negative to date temps down-trending wbc count trending down as well repeat CBC in am cont rocephin follow blood cx's (2) Acute UTI (urinary tract infection): Plan: 2nd GNR cont rocephin blood cx's to date negative check PSA in am; if elevated may have component of acute prostatitis no stones on CT a/p at admission (3) Cardiomyopathy: Plan: EF 30-35% on echo 05/2022 etiology uncertain had L heart cath in May as well - CAD present, but not obstructive BPs are low-normal in setting of #1, #2 above hold BIBI lower coreg dose NS x 250cc (pt appears volume contracted) (4) Complete heart block: Plan: s/p Pacemaker 05/2022 (5) COPD, moderate: Plan: Chronic. Suspect night-time hypoxia is more VALENCIA related than COPD related. O2 sats otherwise wnl. No exacerbation at this time. (6) Hyperlipidemia: Plan: Continue Atorvastatin (7) Diabetes mellitus, type 2: Plan: a1c <7% in May 2022 Well controlled on Metformin. Holding latter while here; resume at d/c. Novolog SSI as needed. (8) Cirrhosis of liver: Plan: Compensated 2nd MARIE? other? will ensure patient is aware of this radiographic diagnosis. (9) Hypertension: Plan: BPs low-normal due to #1 above HOLD BIBI lower coreg dose trend BPs (10) Demand ischemia of myocardium: Plan: Peak HS trop 139 then trended down no evidence of ACS no symptoms of ACS likely myocardial demand ischemia in setting of #1 and #2 above Plan DVT proph - lovenox daily , daughter updated at bedside Admission and Anticipated Discharge Date Admission Date: July 17, 2022 Subjective patient feels "much better" energy is better good appetite voiding ok no abd pain or nausea/emesis apparently he had mildly low o2 sats early this am; NC O2 was applied he has not needed the O2 during the day today confirms he indeed does snore has never had sleep study since his pacer insertion in May he has overall felt much better Review of Systems Review of Systems: gen - low-grade temps but he has not noticed them; no chills cv - no orthopnea, no cp pulm - no dyspnea GI - no N/V/pain - denies nocturia at baseline, but has had slowing of stream, incomplete bladder emptying, etc; recently, with this UTI, has had severe frequency Physical Exam Physical Exam: gen - NAD, laying nearly flat in bed comfortably, obese neck - webbing of posterior neck; no JVD mouth - MM very dry heart - RRR, s1 s2 lungs - minimal dry rales bases, otherwise CTA b/l abd - soft NT ND BS+; no flank tenderness b/l ext - no edema, pulses 2+ b/l psych - a/o x 3 Results & Data Results & Data Vital Signs (Past 12 Hours) Vital Signs Temp Pulse Resp BP Pulse Ox Pulse Ox Pulse Ox 07/18/22 15:31 103/61 07/18/22 15:30 37.5 C 65 16 99/61 L 94 07/18/22 11:31 95 96 07/18/22 11:01 94 07/18/22 07:25 07/18/22 07:20 37.2 C 71 18 109/64 95 07/18/22 06:21 36.8 C 96 O2 Del Method O2 Flow Rate 07/18/22 15:31 07/18/22 15:30 Room Air 07/18/22 11:31 07/18/22 11:01 07/18/22 07:25 Nasal Cannula 2 07/18/22 07:20 Nasal Cannula 2 07/18/22 06:21 Nasal Cannula 2 Laboratory Results Laboratory Results - last 24 hr 07/17/22 07/18/22 07/18/22 20:40 06:47 06:47 WBC 11.83 H RBC 3.81 L Hgb 11.9 L Hct 34.4 L MCV 90.3 MCH 31.2 MCHC 34.6 RDW Std Deviation 42.8 RDW Coeff of Timbo 13.0 Plt Count 98 L MPV 10.6 Sodium 135 L Potassium 3.7 Chloride 103 Carbon Dioxide 24 Anion Gap 8 BUN 20 Creatinine 0.87 Est Cr Clr Drug Dosing 83.8 Est GFR ( Amer) 97.2 Est GFR (Non-Af Amer) 83.8 BUN/Creatinine Ratio 23.0 H Glucose 125 H POC Glucose 138 H Calcium 8.6 Magnesium 2.4 07/18/22 07/18/22 08:21 12:05 WBC RBC Hgb Hct MCV MCH MCHC RDW Std Deviation RDW Coeff of Timbo Plt Count MPV Sodium Potassium Chloride Carbon Dioxide Anion Gap BUN Creatinine Est Cr Clr Drug Dosing Est GFR ( Amer) Est GFR (Non-Af Amer) BUN/Creatinine Ratio Glucose POC Glucose 136 H 151 H Calcium Magnesium Diagnostic Findings urine cx - GNR blood cx's - negative to date PG Care Time/CCT Total # of Minutes Spent Total Time Spent with Patient: Total time spent is greater than 50% in coordination of care (as documented) at patient's floor/unit and/or counseling patient: Coding Level of Care Code 30464 SUB INP/OBS CARE 235MIN Diagnoses Sepsis A41.9 Acute UTI (urinary tract infection) N39.0 Cardiomyopathy I42.0 Cardiomyopathy type: dilated Complete heart block I44.2 COPD, moderate J44.9 Hyperlipidemia E78.5 Diabetes mellitus, type 2 E11.9 Cirrhosis of liver K74.60 Hypertension I10 Hypertension type: primary hypertension Demand ischemia of myocardium I24.8 (3) Cardiomyopathy Cardiomyopathy type: dilated Qualified Code(s): I42.0 - Dilated cardiomyopathy (9) Hypertension Hypertension type: primary hypertension Qualified Code(s): I10 - Essential (primary) hypertension
[2022-07-19 07:17] LABS: Hematocrit (blood only) 34.7 % (42.0-52.0); Hemoglobin 11.7 g/dl (14.0-18.0); Mean Corpuscular Hemoglobin 30.9 pg (25.0-34.0); Mean Corpuscular Hgb Conc 33.7 g/dL (32.0-36.0); Mean Corpuscular Volume 91.6 fL (80.0-100.0); Mean Platelet Volume 10.8 fL (9.4-12.4); Platelet Count 102 K/uL (130-400); RDW Coefficient of Variation 12.8 % (11.5-14.5); RDW Standard Deviation 42.7 fL (36.4-46.3); Red Blood Count 3.79 M/uL (4.70-6.10); White Blood Count 7.52 K/ul (4.8-10.8)
[2022-07-19 07:54] LABS: BUN Creatinine Ratio 26.2 (10-20); Calcium 8.5 mg/dl (8.6-10.3); Creatinine Clr Calc Pharmacy 86.8 ml/min; Est GFR (African American) 98.6 ml/min; Est GFR (Non-African American) 85.1 ml/min; Potassium 3.9 mmol/L (3.5-5.1)
[2022-07-19] MEDS ORDERED: carvediloL 6.25 MG TAB PO SCH (08:00)
[2022-07-19] MEDS: ENOXAPARIN INJ 40 MG/0.4 ML SYR SQ SCH (08:46)
[2022-07-19] MEDS: ATORVASTATIN 40 MG TAB PO SCH (08:46)
[2022-07-19] MEDS: INSULIN ASPART PER UNIT CHARGE SC SCH (08:49)
[2022-07-19] MEDS: cefTRIAXone SODIUM 2,000 MG in DEXTROSE 5% 50 ML IV SCH (08:50)
--- NOTE | 2022-07-19 11:32 | Discharge Summary ---
Date of Service date of admission - July 17, 2022 date of discharge - July 19, 2022 Admission HPI Per Admitting Provider Pleasant 76yo male with history of DM, CHF presenting from home after a fall. Patient has had some recent urinary symptoms - increased frequency, urgency and dysuria. Also with fever and shaking chills, increased weakness. Got up multiple times this evening to urinate and had a fall in the bedroom - unable to get up. No LOC or head trauma. Patient denies worsening back pain, chest pain, SOB or diarrhea He has had some nausea and non-bloody vomiting as well. Febrile by EMS to 102 per family Generalized weakness, unable to stand or ambulate without assistance ER Course: Zofran Cefepime Principal Diagnosis 1. UTI 2. Acute prostatitis 3. Sepsis 2nd to #1, #2 Discharge Exam gen - NAD, obese, looks very good neck - webbing of posterior neck; no JVD mouth - MMM heart - RRR, s1 s2, no murmur lungs - minimal dry rales bases, otherwise CTA b/l abd - soft NT ND BS+; no flank tenderness b/l ext - no edema, pulses 2+ b/l psych - a/o x 3 RADHA - no rectal masses; no gross blood; prostate enlarged, slightly boggy, and diffusely mildly tender; ?small nodule apex of right lobe of prostate Discharge Data Allergies Allergy/AdvReac Type Severity Reaction Status Date / Time No Known Allergies Allergy Unknown Verified 07/25/22 10:27 Consultations PT, OT Ordered Studies Chest X-Ray 07/17/22 00:43 XR chest 1V portable HISTORY: weakness COMPARISON: Chest 06/21/2022. FINDINGS: No pneumothorax. No pleural effusions. There are low lung volumes. A few left basilar linear densities which favor subsegmental atelectasis or scarring. Otherwise, the lungs are clear. No evidence for pulmonary edema. Left- sided pacemaker and poststernotomy changes again noted. The heart remains mildly enlarged. IMPRESSION: Stable mild cardiomegaly. Otherwise, no acute process within the chest. ACT 112: Negative or not required by law. Electronically signed by: Evangelist Silver M.D. 07/17/2022 8:25 AM Abdomen/Pelvis CT 07/17/22 03:53 Exam(s): CT ABDOMEN + PELVIS With Contrast IV Amt: 90ml Optiray 350 EXAM: CT Abdomen and Pelvis With Intravenous Contrast CLINICAL HISTORY: Reason for exam: uti. TECHNIQUE: Axial computed tomography images of the abdomen and pelvis with intravenous contrast. Automated exposure control was utilized for the study. A dose lowering technique was utilized adhering to the principles of ALARA. CONTRAST: Patient received 90ml Optiray 350 of IV contrast COMPARISON: No relevant prior studies available. FINDINGS: Artifacts: Some artifact from patient's arms in the upper/mid abdomen. Lung bases: Mild bibasilar atelectasis. ABDOMEN: Liver: Nodular, cirrhotic liver. Gallbladder and bile ducts: Unremarkable. No calcified stones. No ductal dilation. Pancreas: Unremarkable. No mass. No ductal dilation. Spleen: Unremarkable. No splenomegaly. Adrenals: Unremarkable. No mass. Kidneys and ureters: Unremarkable. No solid mass. No hydronephrosis. Stomach and bowel: Colonic diverticulosis. No obstruction. No mucosal thickening. PELVIS: Appendix: Normal appendix. Bladder: Bladder wall thickening versus nondistended urinary bladder. Reproductive: Unremarkable as visualized. ABDOMEN and PELVIS: Intraperitoneal space: See above. Bones/joints: No acute fracture. No dislocation. Soft tissues: Unremarkable. Vasculature: Unremarkable. No abdominal aortic aneurysm. Lymph nodes: Unremarkable. No enlarged lymph nodes. Tubes, lines and devices: Cardiac pacemaker leads. IMPRESSION: 1. Bladder wall thickening versus nondistended urinary bladder. May correlate with cystitis. 2. Nodular, cirrhotic liver. Electronically signed by: Kenji Garnica M.D. 07/17/22 06:02 AM Hospital Course (1) Sepsis: 2nd to E.coli UTI with probable acute prostatitis. improved with gentle IV fluids, IV antibiotics, and supportive care. blood cultures were negative while here. leukocytosis resolved. received IV rocephin x 3 days. due to the presence of acute prostatitis he will need in total ~28 days of therapy. thus, he will take - * cefdinir 300mg twice daily x 25 additional days (2) Acute UTI (urinary tract infection): 2nd E.Coli s/p 3 days of IV rocephin transitioned to PO cefdinir 300mg BID x 25 more days PSA was elevated at 9.5 the elevated PSA, in conjunction with abnormal RADHA (tender prostate), was consistent with acute prostatitis - hence the long course of antibiotics of note - no kidney stones on CT a/p at time of admission (3) Acute prostatitis: Elevated PSA This admission - 9.5; was <3 in 2021 RADHA with tender, enlarged prostate Clinical picture c/w UTI with prostatitis s/p 3 days of IV rocephin followed by 25 day course of PO cefdinir consider referral to urology for f/u of elevated PSA, prostatitis, and ?small right apical nodule (4) Elevated PSA: as above (5) Thrombocytopenia: Discharge platelet count was 102 It was 148 at time of admission Suspect acute drop in platelets was due to sepsis Needs f/u CBC at time of hospital follow-up to ensure normalization (6) Cardiomyopathy: EF 30-35% on echo 05/2022 etiology uncertain had L heart cath in May 2022 as well - CAD present, but not obstructive BPs throughout this stay were low-normal in setting of #1, #2 above Due to the low BPs recommended - * LOWER the coreg dose to 12.5mg BID * HOLD lisinopril at discharge f/u with PCP within 1 week for BP check hopefully can resume prior doses at that time patient was compensated from CHF standpoint the entire stay (7) Complete heart block: s/p Pacemaker 05/2022 (8) COPD, moderate: Chronic. Suspect night-time hypoxia is more VALENCIA related than COPD related. states he does snore. O2 sats otherwise wnl while awake. No exacerbation while here. I asked him to speak to his PCP about obtaining an outpatient sleep study. (9) Hyperlipidemia: Continue Atorvastatin (10) Diabetes mellitus, type 2: a1c <7% in May 2022 Well controlled on Metformin. (11) Cirrhosis of liver: Compensated CT a/p with features of cirrhosis of the liver 2nd MARIE? Cardiogenic/due to right heart failure? other? Saw [facility] earlier in June 2022 and will continue to have surveillance of such (12) Hypertension: BPs low-normal due to #1 above HOLD BIBI at discharge lower coreg dose to 12.5mg BID at discharge f/u PCP within 1 week (13) Demand ischemia of myocardium: Peak HS trop 139 then trended down no evidence of ACS no symptoms of ACS likely myocardial demand ischemia in setting of #1 and #2 above Plan seen by PT/OT - cleared for discharge home with his family Total Time Total Time Spent Total Time Spent (In Minutes): 45 Discharge Plan Discharge Items Patient Disposition: Home - Self-Care Reason For Visit: FALL Discharge Diagnosis: 1. Sepsis due to urinary tract infection - improved/resolving 2. Acute prostatitis (prostate gland infection) 3. Elevated PSA level - likely due to #2 (level = 9.5; was <3 in 2021) 4. Recent pacemaker insertion 5. Chronic congestive heart failure 6. Mildly low platelets - likely due to your infection - repeat CBC with platelet count needed after discharge Activity: As commented below Activity Comment: gradually increase your activities over the next week as tolerated Non-emergency contact: Primary Care Provider Call non-emergency contact if: you have any medication questions, your symptoms worsen and you have a fever Follow-up/Referrals: Lakshmi Wharton CRNP [Primary Care Provider] - 07/25/22 10:30 am (5-7 days ) Diet: Carb Consistent or DM2 and Heart Healthy Fluids: 1800ml (7 cups) Addtl Attending Provider Instructions: Mr Ga, You were hospitalized after developing weakness and various urinary symptoms. You had evidence of urinary tract infection. This was treated with IV antibiotics. Your urine culture grew e.coli, a common urinary tract infection bacterium. Your fevers, elevated white blood cell count (this rises with infection), etc all improved while here. Blood cultures were negative. This means we did NOT find evidence of blood stream infection. Men often develop urinary tract infections due to prostate problems. Some men will actually get infection of their prostate gland, also known as prostatitis. Your PSA blood test was elevated and your prostate gland was mildly tender on examination. This was all consistent with prostatitis. Thus, you had a combination of urinary tract infection as well as prostatitis. When prostatitis is suspected this requires a lengthy course of antibiotics, typically 3-4 weeks in duration. Recommendations - 1. for urinary tract infection/prostatitis - take cefdinir antibiotic, 300mg twice daily x 25 days, first dose TOMORROW AM on 07/20/22. 2. for prevention of diarrhea take a probiotic supplement once daily. I sent this to your pharmacy for you. 3. LOWER your carvedilol to 12.5mg (2 tabs) twice daily. Your were previously taking 18.75mg (3 tabs) twice daily. 4. HOLD your lisinopril for now. 5. At your hospital follow-up visit your family doctor will tell you if you can resume your lisinopril and prior dose of carvedilol. 6. Please ask your family doctor for a referral to [facility] to follow the prostate issues, the PSA blood test, etc. 7. If you continue to have bothersome urinary tract symptoms despite treating your infection - frequency of urination (going often), difficulty passing your urine, going frequently at night, etc - you may need prostate medication such as flomax. Your family doctor can prescribe this to you if necessary. 8. Please ask your family doctor for the following at time of follow-up -- * referral for a sleep study to check for "sleep apnea" * repeat CBC blood count 9. See your family doctor in 5-7 days. Return to [facility] if - * you have recurrent fevers over 100 degrees * you develop severe diarrhea * you have difficulty passing your urine * any other concerns It was our pleasure to care for you! Dr Jaquez Pending Studies at Discharge: Yes Studies:: blood cultures, but thus far they are negative (no bacteria in the blood) Stand-Alone Forms: My [facility], Smoking Cessation Medications and DC Order Prescriptions: New cefdinir 300 mg capsule 300 mg PO BID 25 Days Qty: 50 0RF Rx Instructions: start AM of 07/20/22. Saccharomyces boulardii 250 mg capsule 250 mg PO DAILY 30 Days Qty: 30 0RF Continued Combivent Respimat 20-100 mcg/actuation mist 1 puff inhalation .COMPLEX PRN (Reason: cough) Qty: 4 3RF Rx Instructions: 1 puff inhaled BID- TID PRN; space evenly during waking hours Discontinued carvedilol 6.25 mg Tablet 18.75 mg PO BIDM Qty: 60 0RF No Action carvedilol 12.5 mg tablet 12.5 mg PO BIDM Qty: 180 3RF metformin 500 mg tablet extended release 24 hr 1,000 mg PO QPM Qty: 180 3RF atorvastatin 40 mg tablet 40 mg PO QAM Qty: 90 3RF Entresto 49-51 mg tablet 1 tab PO BID Qty: 180 3RF Discharge Orders: Discharge Order (Routine); Ordered 07/19/22 Ordered By: Dominic Chris/Other Patient Handouts: Urinary Tract Infections in Men, ED Prostatitis Admission Data Admit Date/Time: 07/17/22 05:46 Attending Provider: Dominic Jaquez Admit Provider: Breann Cheung Primary Care Provider: Lakshmi Wharton. Other Providers: Breann Cheung Other Interventions: Discharge Summary Assessment (RN) Last Done: 07/19/22 12:26 Coding Level of Care Code 26036 INP/OBS DISCH >30 MIN Diagnoses Sepsis A41.9 Acute UTI (urinary tract infection) N39.0 Acute prostatitis N41.0 Elevated PSA R97.20 Thrombocytopenia D69.6 Cardiomyopathy I42.0 Cardiomyopathy type: dilated Complete heart block I44.2 COPD, moderate J44.9 Hyperlipidemia E78.5 Diabetes mellitus, type 2 E11.9 Cirrhosis of liver K74.60 Hypertension I10 Hypertension type: primary hypertension Demand ischemia of myocardium I24.8
--- NOTE | 2022-07-25 11:07 | Coding Query ---
To promote full compliance with coding requirements relating to patient care, provider participation is requested in all cases of auditing coder uncertainty. Please assist us with the question(s) below: Coding Question(s): The diagnosis(es) below was documented in the 07/18 progress note and again in the hospital course of the discharge summary but not under the Discharge diagnosis. Please indicate if it is still a possible diagnosis or ruled out. Physician's Response(s): SEPSIS ( x ) Diagnosed and POA ( ) Diagnosed and not POA ( ) Ruled out ( ) Other (please specify) MTDD
== END 2022-07-19 13:03 | disposition home or self-care (01) | DRG 872 ==
LOC: SUATTDRO → ED 00:24 → EDINP 05:46 → SUATTDRO 05:46 → 3W 15:03
DX: Z95.0 Presence of cardiac pacemaker; I11.0 Hypertensive heart disease with heart failure; B96.89 Other specified bacterial agents as the cause of diseases classified elsewhere; Z79.899 Other long term (current) drug therapy; E66.9 Obesity, unspecified; N41.9 Inflammatory disease of prostate, unspecified; Z68.39 Body mass index [BMI] 39.0-39.9, adult; I42.9 Cardiomyopathy, unspecified; I50.9 Heart failure, unspecified; E78.5 Hyperlipidemia, unspecified; I24.8 Other forms of acute ischemic heart disease; J44.9 Chronic obstructive pulmonary disease, unspecified; D69.6 Thrombocytopenia, unspecified; E11.9 Type 2 diabetes mellitus without complications; I44.2 Atrioventricular block, complete; Z79.84 Long term (current) use of oral hypoglycemic drugs; N39.0 Urinary tract infection, site not specified; K74.60 Unspecified cirrhosis of liver; A41.9 Sepsis, unspecified organism

== ENCOUNTER 2022-08-14 09:06 | Inpatient (IN) ==
[2022-08-14] MEDS ORDERED: OPTIRAY 320 500ml IV ONE (09:10)
--- NOTE | 2022-08-14 09:42 | CT Scan Report ---
CT angio neck with con, CT head/brain wo con, CT angio head w con CLINICAL HISTORY: neuro deficit, acute stroke suspected TECHNIQUE: Contiguous axial CT images of the head were acquired from the base of the skull to the lilian mira without intravenous contrast administration. CT angiography of the head and neck was performed f ollowing intravenous administration of iodinated contrast. Coronal and sagittal MIPS were obtained fr om the axial data set and were submitted for review. Automated dose lowering techniques and/or adjus tment according to patient size were utilized for this examination. All measurements were calculated based on NASCET criteria. CT DOSE: 1468.45 mGy.cm Comparison: None available at the time of this dictation. FINDINGS: CT head: There is no acute intracranial hemorrhage or evidence of acute territorial infarction. No sh ift of the midline structures, mass effect, or extra-axial abnormalities are shown. Pulmonary trunk measures 57 mm in diameter. CTA Neck: A 3 vessel aortic arch is shown. There is no significant atherosclerotic plaque in the aor tic arch or the origins of the innominate, left common carotid, and left subclavian arteries. The co mmon carotid, external carotid, cervical segments of the internal carotid arteries, and the cervical segments of the vertebral arteries are patent without hemodynamically significant stenosis. The left vertebral artery is dominant. CTA Head: The anterior and posterior cerebral circulations are patent. No hemodynamically significan t stenosis, aneurysm, dissection, or arteriovenous malformation is shown. IMPRESSION: 1. No acute intracranial hemorrhage, evidence of acute territorial infarction, or other acute intrac ranial disease process. 2. No occlusion, hemodynamically significant stenosis, or dissection in the major cervical arteries. 3. No occlusion, hemodynamically significant stenosis, aneurysm, dissection, or arteriovenous malfor mation in the major intracranial arteries. Assessment of stenosis of the internal carotid arteries is based on NASCET criteria. ACT 112: Negative or not required by law. Electronically signed by: Ramakrishna Hensley M.D. 08/14/2022 9:40 AM
--- NOTE | 2022-08-14 09:47 | Emergency Department Note ---
Impression & Plan Stroke-like symptom, Elevated troponin I level ED Provider Note NAME: LAKEISHA LEAL AGE: 76 SEX: M : 1945 ARRIVES VIA: Ambulance INFORMANT: EMS ED PROVIDER(S): Jose Cruz Avendano DO CHIEF COMPLAINT: stroke alert HPI: The patient is unable to give any history at this time. The patient is a 76-year-old male who presented to the emergency department. 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 He was last known well at . He has not been able to speak or follow commands since that time. Patient's significant other did present to the emergency department. The patient was recently treated for UTI and had a pacemaker placed a few months ago. The patient had no complaints this morning. ROS: See above HPI for pertinent positives & negatives. A total of 10 systems reviewed and were otherwise negative. PAST MEDICAL HISTORY: See Below PAST SURGICAL HISTORY: See Below FAMILY HISTORY: See Below SOCIAL HISTORY: See Below HOME MEDICATIONS: See Below ALLERGIES: See Below VITALS: See Below PHYSICAL EXAMINATION: GENERAL: The patient is awake and looking around the room EYES: The conjunctivae are clear. The left pupil is postoperative in nature. EARS, NOSE, MOUTH AND THROAT: The nose is without any evidence of any deformity. NECK: The neck is nontender and supple. RESPIRATORY: Normal respiratory effort is noted there is no evidence of wheezing rhonchi or rales CARDIOVASCULAR: Regular rate and rhythm noted there no murmurs rubs or gallops normal S1 normal S2. GASTROINTESTINAL: The abdomen is soft. Abdomen is nontender. MUSCULOSKELETAL/EXTREMITIES: There is no evidence of gross deformity full range of motion is noted in the hips and shoulders. SKIN: There is no obvious evidence of any rash. There are no petechiae, pallor or cyanosis noted. NEUROLOGIC: The patient does not follow commands or answer questions. When he is asked to move his upper or lower extremities he cannot do this. When his extremities are held up they fall to the ground easily. Patellar tendon reflexes are 2+ bilaterally. MEDICAL DECISION MAKING: The patient is a 76-year-old male who presented to the emergency department for an evaluation of strokelike symptoms. The patient had a rather acute onset of generalized weakness. The patient was aphasic. The patient appeared to have w eakness over his entire body. Reflexes remained intact. The patient was observed for a period of time. He was made a stroke alert prior to arrival. Because of the confounding physical exam the patient was not felt to be an immediate candidate for thrombolytics. TNK was ordered however not given as we wanted to be prepared in case neurology felt he would be a good candidate for TNK. We did discuss this with the family. They do understand the risks and benefits of this medication especially in somebody who presents with this patient's work-up as well as his exam. Ultimately the patient was felt to be a better candidate for further work-up including MRI of the brain. MRI did not reveal any acute abnormality. I discussed the case with the telestroke neurologist at [facility] multiple times. I discussed the patient's condition with the on-call [facility] hospitalist. They have agreed to evaluate the patient in the emergency department. Triage Nursing notes reviewed. Prior medical records reviewed Vital Signs: reviewed and remarkable for no significant abnormalities Differential diagnosis: Infection, dehydration, metabolic abnormality, hypo/hyperglycemia, electrolyte disturbance, anemia, hypoxia, cardiac sources, intracerebral event, toxicologic, neurologic, as well as other pathologies. ER treatment provided: See below Diagnostics interpreted by me: ECG: EKG was obtained in the emergency department. My interpretation is sinus rhythm with first-degree AV block at 76 bpm. Right bundle branch block pattern was noted. Lateral and inferior T wave inversions with ST depressions were noted. This was compared to a tracing from July 17, 2022. Pacemaker has been noted on the previous tracing. Cardiac Monitoring: An order was placed for continuous cardiac monitoring. The monitor shows a rate of 72 bpm with sinus rhythm. Laboratory studies: As stated above and show below. Imaging studies: See below. Radiographic imaging was reviewed by myself Consultation(s): I discussed this case with Dr Pierson who [place] manager [place] [facility] [place] COURSE: Procedures: none Critical Care: I have personally spent greater than 35 minutes of critical care time in the direct management of this patient. This includes bedside care, interpretation of diagnostic studies, and testing, discussion with consultants, patient, and family members, and other required patient management activities. This 35 minutes is in excess of all separately billable procedures. 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 Family History Other No family history of adverse response to anesthesia Denies family history of Ovarian cancer Prostate cancer Myocardial infarction Breast cancer Colorectal cancer Social History Smoking Status: Former smoker Age Started Using Tobacco: 16; Age Quit Using Tobacco: 26; Second Hand Exposure: No; Do You Dip or Chew Tobacco: No; Hx Alcohol Use: Yes Alcohol type: beer Hx Substance Use: No Preferred Language: Greek Communication Ability: Effective Manager Group Required: No Beliefs That Will Affect Care: Spiritual marital status: Current Living Situation: Spouse current occupational status: retired How many Children do You have: 1 Feels Safe at Home: Yes Childhood Exposure to Second-Hand Smoke: Yes Diet: regular caffeine: Yes Dental Care, Regularly: No Physical Activity Frequency: Daily Seatbelt Use: always Sunscreen Use: Yes Assistive Devices: Cane Allergies Allergies Allergy/AdvReac Type Severity Reaction Status Date / Time No Known Allergies Allergy Unknown Verified 08/14/22 13:40 Home Meds Previous Rx's Medication Instructions Recorded ipratropium 20 mcg-albuterol 100 1 puff inhalation .COMPLEX PRN 06/26/22 mcg/actuation mist for inhalation cough #4 grams (Combivent Respimat) Saccharomyces boulardii 250 mg 250 mg PO DAILY 30 days #30 caps 07/19/22 capsule atorvastatin 40 mg tablet 40 mg PO QAM #90 tabs 07/21/22 sacubitril 49 mg-valsartan 51 mg 1 tab PO BID #180 tabs 07/21/22 tablet (Entresto) carvedilol 12.5 mg tablet 12.5 mg PO BIDM #180 tabs 07/24/22 metformin 500 mg tablet,extended 1,000 mg PO QPM #180 tabs 07/25/22 release 24 hr doxazosin 4 mg tablet 4 mg PO DAILY #30 tabs 08/10/22 Results & Data (ED) Vital Signs Vital Signs - 24 hr 08/14/22 09:22 08/14/22 09:22 08/14/22 09:35 Temperature 35.6 C L 35.6 C L Temperature Source Rectal Rectal Pulse Rate 70 Pulse Rate [Apical] 76 Pulse Rate from SpO2 Sensor Respiratory Rate 16 16 16 Blood Pressure 122/82 Blood Pressure [Left Arm] 133/81 133/81 Blood Pressure Mean 95 Blood Pressure Mean [Left Arm] 98 98 Pulse Oximetry 96 95 95 Oxygen Delivery Method Nasal Cannula Sepsis Recent Fever Within 48 Hours No Sepsis New/Unexplained Change in Mental Status N/A Sepsis Action Taken by Nursing No Action Required 08/14/22 09:22 08/14/22 09:21 08/14/22 09:21 Temperature Temperature Source Pulse Rate 80 80 Pulse Rate [Apical] Pulse Rate from SpO2 Sensor 80 Respiratory Rate 22 Blood Pressure 122/82 Blood Pressure [Left Arm] Blood Pressure Mean 95 Blood Pressure Mean [Left Arm] Pulse Oximetry 95 Oxygen Delivery Method Sepsis Recent Fever Within 48 Hours Sepsis New/Unexplained Change in Mental Status Sepsis Action Taken by Nursing 08/14/22 09:32 08/14/22 09:32 08/14/22 10:00 Temperature Temperature Source Pulse Rate 74 Pulse Rate [Apical] Pulse Rate from SpO2 Sensor 73 Respiratory Rate 22 Blood Pressure 133/81 137/94 Blood Pressure [Left Arm] Blood Pressure Mean 98 108 Blood Pressure Mean [Left Arm] Pulse Oximetry 95 Oxygen Delivery Method Sepsis Recent Fever Within 48 Hours Sepsis New/Unexplained Change in Mental Status Sepsis Action Taken by Nursing 08/14/22 10:30 08/14/22 10:30 08/14/22 11:25 Temperature Temperature Source Pulse Rate 63 75 Pulse Rate [Apical] Pulse Rate from SpO2 Sensor 67 67 Respiratory Rate 21 20 Blood Pressure 135/81 135/82 Blood Pressure [Left Arm] Blood Pressure Mean 99 99 Blood Pressure Mean [Left Arm] Pulse Oximetry 90 94 Oxygen Delivery Method Sepsis Recent Fever Within 48 Hours Sepsis New/Unexplained Change in Mental Status Sepsis Action Taken by Nursing 08/14/22 11:30 08/14/22 12:00 08/14/22 12:30 Temperature Temperature Source Pulse Rate 72 71 72 Pulse Rate [Apical] Pulse Rate from SpO2 Sensor 69 63 69 Respiratory Rate 18 17 24 Blood Pressure 128/88 128/78 134/81 Blood Pressure [Left Arm] Blood Pressure Mean 101 94 98 Blood Pressure Mean [Left Arm] Pulse Oximetry 95 95 98 Oxygen Delivery Method Sepsis Recent Fever Within 48 Hours Sepsis New/Unexplained Change in Mental Status Sepsis Action Taken by Custodial Medications Current Medication List: was personally reviewed by me Laboratory Data Attestation: I reviewed the patient's lab results. 08/14/22 09:25 08/14/22 09:25 Lab Results 08/14/22 08/14/22 08/14/22 Range/Units 09:08 09:25 09:25 WBC 3.81 L (4.8-10.8) K/ul RBC 4.23 L (4.70-6.10) M/uL Hgb 13.0 L (14.0-18.0) g/dl Hct 39.2 L (42.0-52.0) % MCV 92.7 (80.0-100.0) fL MCH 30.7 (25.0-34.0) pg MCHC 33.2 (32.0-36.0) g/dL RDW Std Deviation 45.1 (36.4-46.3) fL RDW Coeff of Timbo 13.2 (11.5-14.5) % Plt Count 102 L (130-400) K/uL MPV 10.6 (9.4-12.4) fL Immature Gran % (Auto) 0.3 % Neut % (Auto) 71.9 % Lymph % (Auto) 15.0 % [place] % (Auto) 8.9 % Eos % (Auto) 3.4 % Baso % (Auto) 0.5 % Neut # (Auto) 2.74 (1.40-6.50) K/uL Lymph # (Auto) 0.57 L (1.2-3.4) K/uL [place] # (Auto) 0.34 (0.11-0.59) K/uL Eos # (Auto) 0.13 (0-0.50) K/uL Baso # (Auto) 0.02 (0-0.2) K/uL Immature Gran # (Auto) 0.01 (0.01-0.20) K/uL PT Cancelled INR Cancelled APTT Cancelled PTT Ratio Cancelled Sodium (136-145) mmol/L Potassium (3.5-5.1) mmol/L Chloride (98-107) mmol/L Carbon Dioxide (21-32) mmol/L Anion Gap (3-11) BUN (6-23) mg/dl Creatinine (0.6-1.4) mg/dl Est Cr Clr Drug Dosing ml/min Est GFR ( Amer) ml/min Est GFR (Non-Af Amer) ml/min BUN/Creatinine Ratio (10-20) Glucose (70-99(Fasting)) mg/dl Osmolality (280-300) mOsm/kg Calcium (8.6-10.3) mg/dl Magnesium (1.7-2.4) mg/dl Total Bilirubin (0.2-1.0) mg/dl AST (13-39) U/L ALT (7-52) U/L Alkaline Phosphatase (34-104) U/L Ammonia (18-72) umol/L Troponin I High Sens (0-20) pg/ml Total Protein (6.0-8.3) gm/dl Albumin (3.4-5.0) gm/dl Globulin (2.5-4.0) gm/dl Albumin/Globulin Ratio (0.9-2) Ethyl Alcohol mg/dL (<10.0) mg/dl Lyme Disease IgG Ab Negative (Negative) Lyme Disease IgM Ab Negative (Negative) SARS-CoV-2, RNA, NAAT (NEGATIVE) 08/14/22 08/14/22 08/14/22 Range/Units 09:25 09:47 10:37 WBC (4.8-10.8) K/ul RBC (4.70-6.10) M/uL Hgb (14.0-18.0) g/dl Hct (42.0-52.0) % MCV (80.0-100.0) fL MCH (25.0-34.0) pg MCHC (32.0-36.0) g/dL RDW Std Deviation (36.4-46.3) fL RDW Coeff of Timbo (11.5-14.5) % Plt Count (130-400) K/uL MPV (9.4-12.4) fL Immature Gran % (Auto) % Neut % (Auto) % Lymph % (Auto) % [place] % (Auto) % Eos % (Auto) % Baso % (Auto) % Neut # (Auto) (1.40-6.50) K/uL Lymph # (Auto) (1.2-3.4) K/uL [place] # (Auto) (0.11-0.59) K/uL Eos # (Auto) (0-0.50) K/uL Baso # (Auto) (0-0.2) K/uL Immature Gran # (Auto) (0.01-0.20) K/uL PT 11.9 INR 1.1 APTT 28.7 PTT Ratio 1.0 Sodium 136 (136-145) mmol/L Potassium 3.9 (3.5-5.1) mmol/L Chloride 106 (98-107) mmol/L Carbon Dioxide 24 (21-32) mmol/L Anion Gap 6 (3-11) BUN 17 (6-23) mg/dl Creatinine 0.84 (0.6-1.4) mg/dl Est Cr Clr Drug Dosing 89.5 ml/min Est GFR ( Amer) 98.6 ml/min Est GFR (Non-Af Amer) 85.1 ml/min BUN/Creatinine Ratio 20.2 H (10-20) Glucose 116 H (70-99(Fasting)) mg/dl Osmolality (280-300) mOsm/kg Calcium 8.7 (8.6-10.3) mg/dl Magnesium 1.7 (1.7-2.4) mg/dl Total Bilirubin 0.7 (0.2-1.0) mg/dl AST 23 (13-39) U/L ALT 18 (7-52) U/L Alkaline Phosphatase 99 (34-104) U/L Ammonia (18-72) umol/L Troponin I High Sens 34.3 H (0-20) pg/ml Total Protein 6.3 (6.0-8.3) gm/dl Albumin 3.5 (3.4-5.0) gm/dl Globulin 2.8 (2.5-4.0) gm/dl Albumin/Globulin Ratio 1.3 (0.9-2) Ethyl Alcohol mg/dL (<10.0) mg/dl Lyme Disease IgG Ab (Negative) Lyme Disease IgM Ab (Negative) SARS-CoV-2, RNA, NAAT NEGATIVE (NEGATIVE) 08/14/22 08/14/22 08/14/22 Range/Units 10:37 10:37 10:37 WBC (4.8-10.8) K/ul RBC (4.70-6.10) M/uL Hgb (14.0-18.0) g/dl Hct (42.0-52.0) % MCV (80.0-100.0) fL MCH (25.0-34.0) pg MCHC (32.0-36.0) g/dL RDW Std Deviation (36.4-46.3) fL RDW Coeff of Timbo (11.5-14.5) % Plt Count (130-400) K/uL MPV (9.4-12.4) fL Immature Gran % (Auto) % Neut % (Auto) % Lymph % (Auto) % [place] % (Auto) % Eos % (Auto) % Baso % (Auto) % Neut # (Auto) (1.40-6.50) K/uL Lymph # (Auto) (1.2-3.4) K/uL [place] # (Auto) (0.11-0.59) K/uL Eos # (Auto) (0-0.50) K/uL Baso # (Auto) (0-0.2) K/uL Immature Gran # (Auto) (0.01-0.20) K/uL PT INR APTT PTT Ratio Sodium (136-145) mmol/L Potassium (3.5-5.1) mmol/L Chloride (98-107) mmol/L Carbon Dioxide (21-32) mmol/L Anion Gap (3-11) BUN (6-23) mg/dl Creatinine (0.6-1.4) mg/dl Est Cr Clr Drug Dosing ml/min Est GFR ( Amer) ml/min Est GFR (Non-Af Amer) ml/min BUN/Creatinine Ratio (10-20) Glucose (70-99(Fasting)) mg/dl Osmolality 296 (280-300) mOsm/kg Calcium (8.6-10.3) mg/dl Magnesium (1.7-2.4) mg/dl Total Bilirubin (0.2-1.0) mg/dl AST (13-39) U/L ALT (7-52) U/L Alkaline Phosphatase (34-104) U/L Ammonia 39.0 (18-72) umol/L Troponin I High Sens (0-20) pg/ml Total Protein (6.0-8.3) gm/dl Albumin (3.4-5.0) gm/dl Globulin (2.5-4.0) gm/dl Albumin/Globulin Ratio (0.9-2) Ethyl Alcohol mg/dL < 10.0 (<10.0) mg/dl Lyme Disease IgG Ab (Negative) Lyme Disease IgM Ab (Negative) SARS-CoV-2, RNA, NAAT (NEGATIVE) Administered Medications Discontinued Medications Ioversol (Optiray 320 500ml) 120 ml IV ONCE ONE Stop: 08/14/22 09:11 Last Admin: 08/14/22 09:11 Dose: 120 ml Documented By: SIDDHARTH Imaging Data Attestation: I personally reviewed and interpreted this imaging study as follows: My Impression: CT without contrast was obtained in the emergency department. My interpretation is no intracranial hemorrhage, no mass effect, final report below Radiologist's Impression: Chest X-Ray 08/14/22 09:07 XR chest 1V portable CLINICAL HISTORY: neuro deficit, acute stroke suspected TECHNIQUE: Single frontal radiograph of the chest was obtained. Comparison: Comparison is made to chest radiograph 07/17/2022 FINDINGS: Median sternotomy wires are unchanged. Dual-lead pacemaker is seen. Cardiomegaly is noted. The aortic arch is calcified. Lungs are underinflated but clear. No evidence of pleural effusion or pneumothorax. IMPRESSION: No acute chest disease. Cardiomegaly is noted. ACT 112: Negative or not required by law. Electronically signed by: Ramakrishna Hensley M.D. 08/14/2022 10:[address] 08/14/22 09:07 CT angio neck with con, CT head/brain wo con, CT angio head w con CLINICAL HISTORY: neuro deficit, acute stroke suspected TECHNIQUE: Contiguous axial CT images of the head were acquired from the base of the skull to the vertex without intravenous contrast administration. CT angiography of the head and neck was performed following intravenous administration of iodinated contrast. Coronal and sagittal MIPS were obtained from the axial data set and were submitted for review. Automated dose lowering techniques and/or adjustment according to patient size were utilized for this examination. All measurements were calculated based on NASCET criteria. CT DOSE: 1468.45 mGy.cm Comparison: None available at the time of this dictation. FINDINGS: CT head: There is no acute intracranial hemorrhage or evidence of acute territorial infarction. No shift of the midline structures, mass effect, or extra-axial abnormalities are shown. Pulmonary trunk measures 57 mm in diameter. CTA Neck: A 3 vessel aortic arch is shown. There is no significant atherosclerotic plaque in the aortic arch or the origins of the innominate, left common carotid, and left subclavian arteries. The common carotid, external carotid, cervical segments of the internal carotid arteries, and the cervical segments of the vertebral arteries are patent without hemodynamically significant stenosis. The left vertebral artery is dominant. CTA Head: The anterior and posterior cerebral circulations are patent. No hemodynamically significant stenosis, aneurysm, dissection, or arteriovenous malformation is shown. IMPRESSION: 1. No acute intracranial hemorrhage, evidence of acute territorial infarction, or other acute intracranial disease process. 2. No occlusion, hemodynamically significant stenosis, or dissection in the major cervical arteries. 3. No occlusion, hemodynamically significant stenosis, aneurysm, dissection, or arteriovenous malformation in the major intracranial arteries. Assessment of stenosis of the internal carotid arteries is based on NASCET criteria. ACT 112: Negative or not required by law. Electronically signed by: Ramakrishna Hensley M.D. 08/14/2022 9:40 AM Head CTA 08/14/22 09:07 CT angio neck with con, CT head/brain wo con, CT angio head w con CLINICAL HISTORY: neuro deficit, acute stroke suspected TECHNIQUE: Contiguous axial CT images of the head were acquired from the base of the skull to the vertex without intravenous contrast administration. CT angiography of the head and neck was performed following intravenous administration of iodinated contrast. Coronal and sagittal MIPS were obtained from the axial data set and were submitted for review. Automated dose lowering techniques and/or adjustment according to patient size were utilized for this examination. All measurements were calculated based on NASCET criteria. CT DOSE: 1468.45 mGy.cm Comparison: None available at the time of this dictation. FINDINGS: CT head: There is no acute intracranial hemorrhage or evidence of acute territorial infarction. No shift of the midline structures, mass effect, or extra-axial abnormalities are shown. Pulmonary trunk measures 57 mm in diameter. CTA Neck: A 3 vessel aortic arch is shown. There is no significant atherosclerotic plaque in the aortic arch or the origins of the innominate, left common carotid, and left subclavian arteries. The common carotid, external carotid, cervical segments of the internal carotid arteries, and the cervical segments of the vertebral arteries are patent without hemodynamically significant stenosis. The left vertebral artery is dominant. CTA Head: The anterior and posterior cerebral circulations are patent. No hemodynamically significant stenosis, aneurysm, dissection, or arteriovenous malformation is shown. IMPRESSION: 1. No acute intracranial hemorrhage, evidence of acute territorial infarction, or other acute intracranial disease process. 2. No occlusion, hemodynamically significant stenosis, or dissection in the major cervical arteries. 3. No occlusion, hemodynamically significant stenosis, aneurysm, dissection, or arteriovenous malformation in the major intracranial arteries. Assessment of stenosis of the internal carotid arteries is based on NASCET criteria. ACT 112: Negative or not required by law. Electronically signed by: Ramakrishna Hensley M.D. 08/14/2022 9:40 AM Neck CTA 08/14/22 09:07 CT angio neck with con, CT head/brain wo con, CT angio head w con CLINICAL HISTORY: neuro deficit, acute stroke suspected TECHNIQUE: Contiguous axial CT images of the head were acquired from the base of the skull to the vertex without intravenous contrast administration. CT angiography of the head and neck was performed following intravenous administration of iodinated contrast. Coronal and sagittal MIPS were obtained from the axial data set and were submitted for review. Automated dose lowering techniques and/or adjustment according to patient size were utilized for this examination. All measurements were calculated based on NASCET criteria. CT DOSE: 1468.45 mGy.cm Comparison: None available at the time of this dictation. FINDINGS: CT head: There is no acute intracranial hemorrhage or evidence of acute territorial infarction. No shift of the midline structures, mass effect, or extra-axial abnormalities are shown. Pulmonary trunk measures 57 mm in diameter. CTA Neck: A 3 vessel aortic arch is shown. There is no significant atherosclerotic plaque in the aortic arch or the origins of the innominate, left common carotid, and left subclavian arteries. The common carotid, external carotid, cervical segments of the internal carotid arteries, and the cervical segments of the vertebral arteries are patent without hemodynamically significant stenosis. The left vertebral artery is dominant. CTA Head: The anterior and posterior cerebral circulations are patent. No hemodynamically significant stenosis, aneurysm, dissection, or arteriovenous malformation is shown. IMPRESSION: 1. No acute intracranial hemorrhage, evidence of acute territorial infarction, or other acute intracranial disease process. 2. No occlusion, hemodynamically significant stenosis, or dissection in the m ajor cervical arteries. 3. No occlusion, hemodynamically significant stenosis, aneurysm, dissection, or arteriovenous malformation in the major intracranial arteries. Assessment of stenosis of the internal carotid arteries is based on NASCET criteria. ACT 112: Negative or not required by law. Electronically signed by: Ramakrishna Hensley M.D. 08/14/2022 9:40 AM Brain MRI 08/14/22 10:30 MR brain wo con CLINICAL HISTORY: cva TECHNIQUE: Multiplanar and multisequence MR images of the brain were obtained without intravenous contrast. Comparison: Comparison is made to MRI brain 03/03/2008 FINDINGS: No abnormal restricted diffusion is identified. Foci of T2 and FLAIR hyperintens ity are noted in the paraventricular areas consistent with chronic small vessel ischemic disease. The ventricular system is normal in appearance. No mass is seen. There is no mass effect or midline shift. There is no evidence of acute intraparenchymal hemorrhage. No extra axial fluid collections are seen. The corpus callosum, pituitary gland, and cerebellar tonsils appear grossly unremarkable. Flow voids of the major intracranial arterial vessels are identified. The imaged portions of the paranasal sinuses, mastoid air cells, and orbits are unremarkable. IMPRESSION: No acute abnormalities. ACT 112: Negative or not required by law. Electronically signed by: Ramakrishna Hensley M.D. 08/14/2022 12:21 PM Discharge Plan Visit Data Chief Complaint: Stroke Alert ED Provider: Jose Cruz Avendano Discharge Problem: Stroke-like symptom, Elevated troponin I level Patient Disposition: Being Evaluated by Hospitalist Forms Stand Alone Forms: My [facility] Prescriptions Prescriptions: No Action carvedilol 12.5 mg tablet 12.5 mg PO BIDM Qty: 180 3RF metformin 500 mg tablet extended release 24 hr 1,000 mg PO QPM Qty: 180 3RF atorvastatin 40 mg tablet 40 mg PO QAM Qty: 90 3RF Entresto 49-51 mg tablet 1 tab PO BID Qty: 180 3RF doxazosin 4 mg tablet 4 mg PO DAILY Qty: 30 7RF Combivent Respimat 20-100 mcg/actuation mist 1 puff inhalation .COMPLEX PRN (Reason: cough) Qty: 4 3RF Rx Instructions: 1 puff inhaled BID- TID PRN; space evenly during waking hours Saccharomyces boulardii 250 mg capsule 250 mg PO DAILY 30 Days Qty: 30 0RF Referrals Referrals: Lakshmi Wharton CRNP [Primary Care Provider] -
[2022-08-14 09:59] LABS: Albumin Globulin Ratio 1.3 (0.9-2); Albumin Level 3.5 gm/dl (3.4-5.0); BUN Creatinine Ratio 20.2 (10-20); Bilirubin,Total 0.7 mg/dl (0.2-1.0); Calcium 8.7 mg/dl (8.6-10.3); Creatinine Clr Calc Pharmacy 89.5 ml/min; Est GFR (African American) 98.6 ml/min; Est GFR (Non-African American) 85.1 ml/min; Globulin 2.8 gm/dl (2.5-4.0); Magnesium 1.7 mg/dl (1.7-2.4); Potassium 3.9 mmol/L (3.5-5.1); Total Protein 6.3 gm/dl (6.0-8.3)
[2022-08-14 10:04] LABS: Troponin I High Sensitivity 34.3 pg/ml (0-20)
[2022-08-14] MEDS ORDERED: STAT IV STA (10:11)
[2022-08-14] MEDS ORDERED: SODIUM CHLORIDE 0.9% 10ML FLUSH IV STA (10:11)
[2022-08-14 10:12] LABS: Basophils # (auto) 0.02 K/uL (0-0.2); Basophils % (auto) 0.5 %; Eosinophils # (auto) 0.13 K/uL (0-0.50); Eosinophils % (auto) 3.4 %; Hematocrit (blood only) 39.2 % (42.0-52.0); Immature Granulocytes # (auto) 0.01 K/uL (0.01-0.20); Immature Granulocytes % (auto) 0.3 %; Lymphocytes # (auto) 0.57 K/uL (1.2-3.4); Mean Corpuscular Hemoglobin 30.7 pg (25.0-34.0); Mean Corpuscular Hgb Conc 33.2 g/dL (32.0-36.0); Mean Corpuscular Volume 92.7 fL (80.0-100.0); Mean Platelet Volume 10.6 fL (9.4-12.4); Monocytes # (auto) 0.34 K/uL (0.11-0.59); Monocytes % (auto) 8.9 %; Neutrophils # (auto) 2.74 K/uL (1.40-6.50); Neutrophils % (auto) 71.9 %; Platelet Count 102 K/uL (130-400); RDW Coefficient of Variation 13.2 % (11.5-14.5); RDW Standard Deviation 45.1 fL (36.4-46.3); Red Blood Count 4.23 M/uL (4.70-6.10); White Blood Count 3.81 K/ul (4.8-10.8)
[2022-08-14] MEDS ORDERED: No Aspirin within 24hrs of THROMBOLYTIC-Stroke PO SCH (10:15)
--- NOTE | 2022-08-14 10:16 | XRay Report ---
XR chest 1V portable CLINICAL HISTORY: neuro deficit, acute stroke suspected TECHNIQUE: Single frontal radiograph of the chest was obtained. Comparison: Comparison is made to chest radiograph 07/17/2022 FINDINGS: Median sternotomy wires are unchanged. Dual-lead pacemaker is seen. Cardiomegaly is noted. The aortic arch is calcified. Lungs are underinflated but clear. No evidence of pleural effusion or pneumothora x. IMPRESSION: No acute chest disease. Cardiomegaly is noted. ACT 112: Negative or not required by law. Electronically signed by: Ramakrishna Hensley M.D. 08/14/2022 10:14 AM
[2022-08-14] MEDS ORDERED: TENECTEPLASE 25 MG in SYRINGE 0 ML IV ONE (10:21)
[2022-08-14 11:29] LABS: INR 1.1 (0.9-1.1); Partial Thromboplastin Time 28.7 Seconds (21.0-31.0); Prothrombin Time 11.9 Seconds (9.0-12.0)
--- NOTE | 2022-08-14 12:03 | Electrocardiogram Report ---
Test Reason : Blood Pressure : / mmHG Vent. Rate : 076 BPM Atrial Rate : 076 BPM P-R Int : 336 ms QRS Dur : 152 ms QT Int : 456 ms P-R-T Axes : 088 035 -75 degrees QTc Int : 513 ms Sinus rhythm with 1st degree A-V block Right bundle branch block Abnormal ECG When compared with ECG of 17-JUL-2022 00:32, Sinus rhythm has replaced Electronic ventricular pacemaker Confirmed by Jose Cruz Aparicio ([id number]) on 08/14/2022 12:03:09 PM Referred By: REFERRED SELF Confirmed By:Jose Cruz Aparicio
--- NOTE | 2022-08-14 12:22 | Magnetic Resonance Report ---
MR brain wo con CLINICAL HISTORY: cva TECHNIQUE: Multiplanar and multisequence MR images of the brain were obtained without intravenous con trast. Comparison: Comparison is made to MRI brain 03/03/2008 FINDINGS: No abnormal restricted diffusion is identified. Foci of T2 and FLAIR hyperintensity are noted in the paraventricular areas consistent with chronic small vessel ischemic disease. The ventricular system i s normal in appearance. No mass is seen. There is no mass effect or midline shift. There is no eviden ce of acute intraparenchymal hemorrhage. No extra axial fluid collections are seen. The corpus callos um, pituitary gland, and cerebellar tonsils appear grossly unremarkable. Flow voids of the major intracranial arterial vessels are identified. The imaged portions of the para nasal sinuses, mastoid air cells, and orbits are unremarkable. IMPRESSION: No acute abnormalities. ACT 112: Negative or not required by law. Electronically signed by: Ramakrishna Hensley M.D. 08/14/2022 12:21 PM
[2022-08-14 12:29] LABS: Lyme Ab IgG w/WB Rflx Negative (Negative); Lyme Ab IgM w/WB Rflx Negative (Negative)
[2022-08-14] MEDS ORDERED: LORazepam 2 MG/1 ML VIAL IV STA (13:42)
--- NOTE | 2022-08-14 13:49 | History & Physical Report ---
Date of Service August 14, 2022 Assessment & Plan (1) Unresponsive state: Plan: 76 yo M who is completely nonverbal/nonresponsive but eyes are awake/blinking with +babinski - Acute/stable/uncertain risk - Full admit to pcu - Maintain NPO status, can reassess at bedside when/if he begins following commands - Labs reviewed, including CBC and CMP. No electrolyte derangements, normal ammonia level - CT head/neck and MRI without acute abnormalities noted - Discussed case with Dr. Madden, [facility] Neuro, recommended dose of Ativan 1mg x1, tox screen, +/- Lactate - Added stat Lactate, ?? post ictal - Ordered EEG - Formal consult placed to neuro, appreciate formal evaluation - May need to consider psych consult if this is deemed concerning for psychogenic etiology (2) Pancytopenia: Plan: Acute/unstable/uncertain risk - Prior records reviewed, last cbc dated 07/19/22, wbc at that time was 7.52, h/h 11.7/34.7, and platelets 102 - CBC today reviewed, wbc 3.81, h/h 13.0/39.2, and platelets 102 - Uncertain reason for marrow suppression ?? no obvious source of infection, temp is 35.6 - Check blood cultures, consider peripheral smear if leukopenia worsens (3) Elevated troponin I level: Plan: Acute/stable/low-mod risk - HS trop reviewed, minimally elevated at 34 - Trend with repeat in 6 hours, but pt without dynamic EKG changes - Suspect represents myocardial demand ischemia (4) Cardiomyopathy: Plan: Nonobstructive CAD/h/o valvular heart disease/cardiomyopathy Chronic/stable - Last echo results from 08/04/22 with EF of 30-35% - When able to swallow, resume home regimen of Atorvastatin, Entresto, Coreg (5) COPD, moderate: Plan: Chronic/stable - Well controlled on Combivent - Pulse ox of 98% on room air (6) Diabetes mellitus, type 2: Plan: Chronic/stable - ha1c 6.0% from May 2022 - On metformin alone which will be held as he received contrast - will add BSG q6h as he is NPO, pharmacy consulted for glycemic management, appreciate assistance (7) Hypertension: Plan: Chronic/stable - Current BP 134/81, BP meds held d/t NPO status - If BP becomes accelerated, will add PRN IV Hydralazine Plan SCDs will be added for DVT ppx. Will defer chemoppx d/t marginal platelets. Otherwise plan as outlined above. Plan has been d/w Dr. Alfonso who will also see and evaluate this patient. Further orders will be implemented as warranted. History of Present Illness Chief Complaint: unresponsive Primary Care Provider: DIEUDONNE Longo Alessandro Ga is a 76 yo M with a pmhx of HTN, cardiomyopathy, cirrhosis, recent ppm insertion d/t complete heart block, dmt2, and HTN who presented to the ER today accompanied by family due to unresponsiveness. It is uncertain at what exact time the patient became unresponsive. Pt was last seen and acting normal by his a little after 7am this morning. 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 He was brought to the ER as a code stroke alert, however, all of his preliminary scans were found to be normal. He was sent for a stat MRI which was also found to be normal with exception of some chronic small vessel disease. His laboratory work up did not reveal any significant findings other than a mildly low wbc out of 3.81, but remaining CBC is not drastically changed from prior rommel ues. He has no electrolyte abnormalities noted, his HS trop is 34, and his ammonia level is normal. Case was d/w [facility] and it was determined that pt did not warrant transfer given his normal MRI. He has been subsequently referred for admission to the hospitalist service. Allergies Allergy/AdvReac Type Severity Reaction Status Date / Time No Known Allergies Allergy Unknown Verified 08/14/22 13:40 Home Medications Medication Instructions Recorded Confirmed Type Saccharomyces boulardii 250 mg 250 mg PO DAILY 30 days #30 caps 07/19/22 08/14/22 Rx capsule atorvastatin 40 mg tablet 40 mg PO QAM #90 tabs 07/21/22 08/14/22 Rx sacubitril 49 mg-valsartan 51 mg 1 tab PO BID #180 tabs 07/21/22 08/14/22 Rx tablet (Entresto) carvedilol 12.5 mg tablet 12.5 mg PO BIDM #180 tabs 07/24/22 08/14/22 Rx metformin 500 mg tablet,extended 1,000 mg PO QPM #180 tabs 07/25/22 08/14/22 Rx release 24 hr doxazosin 4 mg tablet 4 mg PO DAILY #30 tabs 08/10/22 08/14/22 Rx Past Med/Surg History Medical History Blood in stool Cardiomyopathy Diabetes mellitus, type 2 Surgical History History of eye surgery left eye "cut retina open" History of open heart surgery 1971 @ [facility] "valve was growing shut, went in and opened it up"--no founder and president Family History Other No family history of adverse response to anesthesia Denies family history of Ovarian cancer Prostate cancer Myocardial infarction Breast cancer Colorectal cancer Social History Smoking Status: Former smoker Age Started Using Tobacco: 16; Age Quit Using Tobacco: 26; Smoking End Date: 1971; Second Hand Exposure: No; Do You Dip or Chew Tobacco: No; Hx Alcohol Use: Yes Alcohol type: beer Hx Substance Use: No Preferred Language: Comoran Communication Ability: Effective [employer] Employee Required: No Beliefs That Will Affect Care: None marital status: Current Living Situation: Spouse current occupational status: retired How many Children do You have: 1 Other Information That Helps Us Care for You: No Feels Safe at Home: Yes Safety Concerns: Feels Safe At This Time Childhood Exposure to Second-Hand Smoke: Yes Diet: regular caffeine: Yes Dental Care, Regularly: No Physical Activity Frequency: Daily Seatbelt Use: always Sunscreen Use: Yes Assistive Devices: Glasses Physical Exam Physical Exam: GENERAL: 76 yo well-developed, obese elderly WM. Eyes open and blinking but nonresponsive. Hemodynamically stable. EYES: Chronic irregular shape of L pupil from traumatic injury. R pupils is round and reactive to light. LUNGS: Clear to auscultation bilaterally. No accessory muscle use. No W/R/R. CARDIOVASCULAR: Regular rate and rhythm soft systolic murmur noted. No g/r. ABDOMEN: Soft, non-tender and non-distended. BS normoactive x 4 quad. EXTREMITIES: No edema. Non-tender. Peripheral pulses +2/4. NEUROLOGIC: Awake, but nonresponsive/nonverbal. +Babinski on R. No observed facial droop. PSYCHIATRIC: see neuro exam SKIN: Warm, dry, intact. Abrasions noted to anterior L delarosa Results & Data Results & Data Vital Signs (Past 12 Hours) Vital Signs Temp Pulse Pulse Resp BP BP Pulse Ox 08/14/22 12:30 72 24 134/81 98 08/14/22 12:00 71 17 128/78 95 08/14/22 11:30 72 18 128/88 95 08/14/22 11:25 75 20 135/82 94 08/14/22 10:30 63 21 90 08/14/22 10:30 135/81 08/14/22 10:00 137/94 08/14/22 09:32 74 22 95 08/14/22 09:32 133/81 08/14/22 09:21 80 22 95 08/14/22 09:21 122/82 08/14/22 09:22 80 08/14/22 09:35 76 16 133/81 95 08/14/22 09:22 35.6 C L 16 133/81 95 08/14/22 09:22 35.6 C L 70 16 122/82 96 O2 Del Method 08/14/22 12:30 08/14/22 12:00 08/14/22 11:30 08/14/22 11:25 08/14/22 10:30 08/14/22 10:30 08/14/22 10:00 08/14/22 09:32 08/14/22 09:32 08/14/22 09:21 08/14/22 09:21 08/14/22 09:22 08/14/22 09:35 Nasal Cannula 08/14/22 09:22 08/14/22 09:22 Laboratory Results 08/14/22 09:25 08/14/22 09:25 Diagnostic Findings Chest X-Ray 08/14/22 09:07 XR chest 1V portable CLINICAL HISTORY: neuro deficit, acute stroke suspected TECHNIQUE: Single frontal radiograph of the chest was obtained. Comparison: Comparison is made to chest radiograph 07/17/2022 FINDINGS: Median sternotomy wires are unchanged. Dual-lead pacemaker is seen. Cardiomegaly is noted. The aortic arch is calcified. Lungs are underinflated but clear. No evidence of pleural effusion or pneumothorax. IMPRESSION: No acute chest disease. Cardiomegaly is noted. ACT 112: Negative or not required by law. Electronically signed by: Ramakrishna Hensley M.D. 08/14/2022 10:[address] 08/14/22 09:07 CT angio neck with con, CT head/brain wo con, CT angio head w con CLINICAL HISTORY: neuro deficit, acute stroke suspected TECHNIQUE: Contiguous axial CT images of the head were acquired from the base of the skull to the vertex without intravenous contrast administration. CT angiography of the head and neck was performed following intravenous administration of iodinated contrast. Coronal and sagittal MIPS were obtained from the axial data set and were submitted for review. Automated dose lowering techniques and/or adjustment according to patient size were utilized for this examination. All measurements were calculated based on NASCET criteria. CT DOSE: 1468.45 mGy.cm Comparison: None available at the time of this dictation. FINDINGS: CT head: There is no acute intracranial hemorrhage or evidence of acute territorial infarction. No shift of the midline structures, mass effect, or extra-axial abnormalities are shown. Pulmonary trunk measures 57 mm in diameter. CTA Neck: A 3 vessel aortic arch is shown. There is no significant atherosclerotic plaque in the aortic arch or the origins of the innominate, left common carotid, and left subclavian arteries. The common carotid, external carotid, cervical segments of the internal carotid arteries, and the cervical segments of the vertebral arteries are patent without hemodynamically significant stenosis. The left vertebral artery is dominant. CTA Head: The anterior and posterior cerebral circulations are patent. No hemodynamically significant stenosis, aneurysm, dissection, or arteriovenous malformation is shown. IMPRESSION: 1. No acute intracranial hemorrhage, evidence of acute territorial infarction, or other acute intracranial disease process. 2. No occlusion, hemodynamically significant stenosis, or dissection in the major cervical arteries. 3. No occlusion, hemodynamically significant stenosis, aneurysm, dissection, or arteriovenous malformation in the major intracranial arteries. Assessment of stenosis of the internal carotid arteries is based on NASCET criteria. ACT 112: Negative or not required by law. Electronically signed by: Ramakrishna Hensley M.D. 08/14/2022 9:40 AM Head CTA 08/14/22 09:07 CT angio neck with con, CT head/brain wo con, CT angio head w con CLINICAL HISTORY: neuro deficit, acute stroke suspected TECHNIQUE: Contiguous axial CT images of the head were acquired from the base of the skull to the vertex without intravenous contrast administration. CT angio graphy of the head and neck was performed following intravenous administration of iodinated contrast. Coronal and sagittal MIPS were obtained from the axial data set and were submitted for review. Automated dose lowering techniques and/or adjustment according to patient size were utilized for this examination. All measurements were calculated based on NASCET criteria. CT DOSE: 1468.45 mGy.cm Comparison: None available at the time of this dictation. FINDINGS: CT head: There is no acute intracranial hemorrhage or evidence of acute territorial infarction. No shift of the midline structures, mass effect, or extra-axial abnormalities are shown. Pulmonary trunk measures 57 mm in diameter. CTA Neck: A 3 vessel aortic arch is shown. There is no significant atherosclerotic plaque in the aortic arch or the origins of the innominate, left common carotid, and left subclavian arteries. The common carotid, external carotid, cervical segments of the internal carotid arteries, and the cervical segments of the vertebral arteries are patent without hemodynamically significant stenosis. The left vertebral artery is dominant. CTA Head: The anterior and posterior cerebral circulations are patent. No hemodynamically significant stenosis, aneurysm, dissection, or arteriovenous mal formation is shown. IMPRESSION: 1. No acute intracranial hemorrhage, evidence of acute territorial infarction, or other acute intracranial disease process. 2. No occlusion, hemodynamically significant stenosis, or dissection in the major cervical arteries. 3. No occlusion, hemodynamically significant stenosis, aneurysm, dissection, or arteriovenous malformation in the major intracranial arteries. Assessment of stenosis of the internal carotid arteries is based on NASCET criteria. ACT 112: Negative or not required by law. Electronically signed by: Ramakrishna Hensley M.D. 08/14/2022 9:40 AM Neck CTA 08/14/22 09:07 CT angio neck with con, CT head/brain wo con, CT angio head w con CLINICAL HISTORY: neuro deficit, acute stroke suspected TECHNIQUE: Contiguous axial CT images of the head were acquired from the base of the skull to the vertex without intravenous contrast administration. CT angiography of the head and neck was performed following intravenous administration of iodinated contrast. Coronal and sagittal MIPS were obtained from the axial data set and were submitted for review. Automated dose lowering techniques and/or adjustment according to patient size were utilized for this examination. All measurements were calculated based on NASCET criteria. CT DOSE: 1468.45 mGy.cm Comparison: None available at the time of this dictation. FINDINGS: CT head: There is no acute intracranial hemorrhage or evidence of acute territo rial infarction. No shift of the midline structures, mass effect, or extra-axial abnormalities are shown. Pulmonary trunk measures 57 mm in diameter. CTA Neck: A 3 vessel aortic arch is shown. There is no significant atherosclerotic plaque in the aortic arch or the origins of the innominate, left common carotid, and left subclavian arteries. The common carotid, external carotid, cervical segments of the internal carotid arteries, and the cervical segments of the vertebral arteries are patent without hemodynamically significant stenosis. The left vertebral artery is dominant. CTA Head: The anterior and posterior cerebral circulations are patent. No hemodynamically significant stenosis, aneurysm, dissection, or arteriovenous malformation is shown. IMPRESSION: 1. No acute intracranial hemorrhage, evidence of acute territorial infarction, or other acute intracranial disease process. 2. No occlusion, hemodynamically significant stenosis, or dissection in the major cervical arteries. 3. No occlusion, hemodynamically significant stenosis, aneurysm, dissection, or arteriovenous malformation in the major intracranial arteries. Assessment of stenosis of the internal carotid arteries is based on NASCET criteria. ACT 112: Negative or not required by law. Electronically signed by: Ramakrishna Hensley M.D. 08/14/2022 9:40 AM Brain MRI 08/14/22 10:30 MR brain wo con CLINICAL HISTORY: cva TECHNIQUE: Multiplanar and multisequence MR images of the brain were obtained without intravenous contrast. Comparison: Comparison is made to MRI brain 03/03/2008 FINDINGS: No abnormal restricted diffusion is identified. Foci of T2 and FLAIR hy perintensity are noted in the paraventricular areas consistent with chronic small vessel ischemic disease. The ventricular system is normal in appearance. No mass is seen. There is no mass effect or midline shift. There is no evidence of acute intraparenchymal hemorrhage. No extra axial fluid collections are seen. The corpus callosum, pituitary gland, and cerebellar tonsils appear grossly unremarkable. Flow voids of the major intracranial arterial vessels are identified. The imaged portions of the paranasal sinuses, mastoid air cells, and orbits are unremarkable. IMPRESSION: No acute abnormalities. ACT 112: Negative or not required by law. Electronically signed by: Ramakrishna Hensley M.D. 08/14/2022 12:21 PM ECG Additional Comments: EKG - SR with 1st degree AV block Code Status & VTE Plan Code Status full upon d/w Supervising Physician Co-Signing Physician Notes Patient seen and examined, chart reviewed, case discussed with Lori Perez PA-C and I agree with the assessment and plan as above except as otherwise noted Labs and images reviewed Alessandro Ga is a 76-year-old male with a past medical history of type 2 diabetes mellitus, CHF, hypertension, liver cirrhosis, essential hypertriglyceridemia, COPD, tobacco use, BPH with LUTS and 1 episode of prostatitis who presented to the ER 08/14 by ambulance after he was found nonverbal and brought in for a stroke alert. On ER provider assessment patient is awake and gazes around the room, but does not follow commands or answer questions and does not hold extremities up against antigravity. Lab review: No leukocytosis is present Hemoglobin 13 Platelet count 102, similar to prior Sodium, potassium, magnesium are normal Creatinine is less than 1 at baseline, admitting creatinine is 0.84 BSG 116 High-sensitivity troponin last 122 07/17/2022 is 34.3 on admission Outpatient UA 08/10/2022 was not infected appearing COVID-negative Lyme pending CThead/CTAhead/neck: 1. No acute intracranial hemorrhage, evidence of acute territorial infarction, or other acute intracranial disease process. 2. No occlusion, hemodynamically significant stenosis, or dissection in the major cervical arteries. 3. No occlusion, hemodynamically significant stenosis, aneurysm, dissection, or arteriovenous malformation in the major intracranial arteries. MRI-B: No acute finding CXR: No acute disease EKG: Sinus rhythm with first-degree AV block, rate 76, QTc 513. Compared to prior sinus rhythm has replaced previously paced rhythm. Compared to nsr documented 07/21. similar morphology, T wave changes Echo 08/04/2022: EF 30-35% with global moderate hypokinesis of left ventricle, mild concentric LVH, grade 1 diastolic dysfunction. Compared to 06/18/2022 no significant interval change. Trace AR, mild MR, trace TR, trace CA. Patient was seen at the bedside in the ER. Patient is awaking cases around the room, but does not answer questions, offers no verbal speech, does not follow commands. Unable to assess strength/sensation due to cognitive status. Breathing is unlabored. Pupils are equal and reactive to light.Patient was initially treated as a stroke alert, however presentation evaluation was not consistent with stroke and no abnormality was noted on CT, CTA, or MRI. DDx inc luding substance-induced, catatonia, and epileptogenic. Patient was given lorazepam 1 mg. Subsequently patient had significant improvement, became more awake/alert, was verbally engaged with nursing staff, and was able to move on command and was asking for meals. Given normal stroke evaluation, no acute metabolic derangements on initial labs and immediate rapid improvement with Ativan this is consistent with catatonia. EEG pending to r/o seizure. Agree with evaluation and treatment as noted above PG Care Time/CCT Total # of Minutes Spent Total Time Spent with Patient: Total time spent is greater than 50% in coordination of care (as documented) at patient's floor/unit and/or counseling patient: Coding Level of Care Code 30894 INT INP/OBS CARE 3/75MIN Diagnoses Unresponsive state R41.89 Pancytopenia D61.818 Elevated troponin I level R77.8 Cardiomyopathy I42.0 Cardiomyopathy type: dilated COPD, moderate J44.9 Diabetes mellitus, type 2 E11.9 Hypertension I10 Hypertension type: primary hypertension (4) Cardiomyopathy Cardiomyopathy type: dilated Qualified Code(s): I42.0 - Dilated cardiomyopathy (7) Hypertension Hypertension type: primary hypertension Qualified Code(s): I10 - Essential (primary) hypertension
[2022-08-14] MEDS ORDERED: CARBOHYDRATES FOR HYPOGLYCEMIA PO PRN (14:49)
[2022-08-14] MEDS ORDERED: DEXTROSE 50% 50 ML SYRINGE IV PRN (14:49)
[2022-08-14] MEDS ORDERED: GLUCOSE 10 TAB/TUBE PO PRN (14:49)
[2022-08-14] MEDS ORDERED: PHARMACY GLYCEMIC MGMT CONSULT PRN (14:49)
[2022-08-14] MEDS ORDERED: GLUCOSE 40% GEL 15 GM TUBE PO PRN (14:49)
[2022-08-14] MEDS ORDERED: GLUCAGON FOR INJ 1 MG VIAL SQ PRN (14:49)
[2022-08-14] MEDS ORDERED: SODIUM CHLORIDE 0.9% 1000ML 1,000 ML IV SCH (14:49)
[2022-08-14] MEDS ORDERED: ONDANSETRON INJ 2 MG/ML 2 ML VIAL IV PRN (14:49)
--- NOTE | 2022-08-14 15:08 | Pharmacy Report ---
Pharmacy Glycemic Short Note 2 - Date of Service August 14, 2022 - Glycemic Short BSG Results (Last 24 hours): 08/14/22 09:25 Glucose 116 H OUTPATIENT ANTIDIABETIC REGIMEN: * Metformin ER 1000 mg PO PM * HbA1c: 6.0% (06/19/22) ASSESSMENT: * 76 yo M admitted on 08/14/22 secondary to an unresponsive episode at home. Pharmacy has been consulted to assist with inpatient glycemic management. Patient is a well controlled Type 2 diabetic as an outpatient. Please refer to outpatient regimen and most recent HbA1c above. * Possibility of a stroke but all imaging negative at this time. No TNKase given. Remains NPO at this time. * Novolog will be ordered based on previous admission data. No basal necessary for now. PLAN FOR INPATIENT GLYCEMIC CONTROL: * Hold outpatient oral diabetes medications * Basal insulin * None * Bolus insulin * NovoLog per scale ACHS or Q6hrs while NPO * Goal Range: Low 120 mg/dL - High 160 mg/dL * Correction Factor: 45 mg/dL/unit * Nutritional / Prandial insulin per carb ratio of 1 unit per 15 grams CHO consumed
[2022-08-14 15:29] LABS: Amphetamines+Metham, Urine Neg (Neg); Barbiturates, Urine Neg (Neg); Benzodiazepine, Urine Neg (Neg); Cocaine, Urine Neg (Neg); MDMA (Ecstacy), Urine Neg (Neg); Methadone, Urine Neg (Neg); Opiate, Urine Neg (Neg); Phencyclidine, Urine Neg (Neg)
[2022-08-14] MEDS: ACETAMINOPHEN 1,000 MG/100 ML VIAL IV PRN (15:34)
--- NOTE | 2022-08-14 15:42 | Neurology Consultation ---
Date of Consultation August 14, 2022 Assessment & Plan (1) Catatonia: With a negative MRI and no other organic explanation based on labwork, I suspect this was catatonia as it is acutely benzo responsive and he resolved very quickly after receiving ativan. Should it recur would engage with psychiatry and repeat the low dose benzo. EEG is also reasonable and has been ordered per medicine. As he is non-focal and back to baseline would not suspect an infectious or missed vascular etiology. -- If he again becomes unresponsive would repeat 1mg ativan and consult psych. If not, would suspect this is a transient, one-time idiopathic phenomenon. -- Routine EEG is reasonable but seizure is less likely as an etiology Telehealth Consultation Telehealth Information Telehealth Information: I performed this visit using a real-time telehealth connection between my location and the patients location ([facility]). After connecting through interactive tele-video, patient was identified by name and date of and/or wristband check.Patient (or authorized healthcare inside sales account representative) was informed that this was a telemedicine visit and it was being conducted confidentially over secure lines. My office door was closed and no one else was present in the room with me.Patient (or authorized healthcare inside sales account representative) provided consent to proceed with the visit, expressed an understanding of privacy and security of the telemedicine visit, and gave permission to have a hospital inside sales account representative in the room in order to assist with the visit and to conduct portions of the visit, as needed. I informed the patient (or authorized healthcare inside sales account representative) that I reviewed their record and presented the opportunity for them to ask any questions regarding the visit today. The patient agreed to participate. History of Present Illness Reason for Consultation: Unresponsive Requesting Physician: Dr. Alfonso Attending Physician: Nito Alfonso MD History of Present Illness Alessandro Ga is a 76 yo M presenting with a prolonged period of unresponsiveness from home. 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 On arrival to the ED he was unresponsive but his eyes were open. He would otherwise not follow comm ands and a stroke alert was activated. Subsequent imaging including a negative MRI was performed and he was admitted for further workup. On my evaluation the patient was alert and able to talk after having received 1mg of ativan. He reports feeling lousy but is unable to elaborate further. He also reports severe posterior neck pain which his reports is not unusual for him. He otherwise denies any seizure history, stroke history, focal weakness or numbness. Allergies Allergy/AdvReac Type Severity Reaction Status Date / Time No Known Allergies Allergy Unknown Verified 08/14/22 13:40 Home Medications Medication Instructions Recorded Confirmed Type Saccharomyces boulardii 250 mg 250 mg PO DAILY 30 days #30 caps 07/19/22 08/14/22 Rx capsule atorvastatin 40 mg tablet 40 mg PO QAM #90 tabs 07/21/22 08/14/22 Rx sacubitril 49 mg-valsartan 51 mg 1 tab PO BID #180 tabs 07/21/22 08/14/22 Rx tablet (Entresto) carvedilol 12.5 mg tablet 12.5 mg PO BIDM #180 tabs 07/24/22 08/14/22 Rx metformin 500 mg tablet,extended 1,000 mg PO QPM #180 tabs 07/25/22 08/14/22 Rx release 24 hr doxazosin 4 mg tablet 4 mg PO DAILY #30 tabs 08/10/22 08/14/22 Rx Patient History Medical History Blood in stool Cardiomyopathy Diabetes mellitus, type 2 Surgical History History of eye surgery left eye "cut retina open" History of open heart surgery 1971 @ [facility] "valve was growing shut, went in and opened it up"--no air drier Family History Other No family history of adverse response to anesthesia Denies family history of Ovarian cancer Prostate cancer Myocardial infarction Breast cancer Colorectal cancer Social History Smoking Status: Former smoker Age Started Using Tobacco: 16; Age Quit Using Tobacco: 26; Smoking End Date: 1971; Second Hand Exposure: No; Do You Dip or Chew Tobacco: No; Hx Alcohol Use: Yes Alcohol type: beer Hx Substance Use: No Preferred Language: Czech Communication Ability: Effective 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 Oriented to person, place. Fluent. Comprehension intact. Affect appropriate. Cranial Nerves: II: Reads NIHSS cards, pupils 3/3 to 2/2, III/IV/: Versions intact without nystagmus, no gaze preference. VII: Facial expression symmetric VIII: Hearing intact to voice Motor: Strength was symmetric and antigravity throughout. Pronator drift was absent. There were no abnormal movements. Reflexes: Unable to assess over telemedicine Results & Data Vital Signs (Past 12 Hours) Vital Signs Temp Pulse Pulse Resp BP BP BP 08/14/22 14:49 36.5 C 68 19 133/78 08/14/22 14:00 70 16 137/68 08/14/22 13:54 75 19 121/70 08/14/22 13:00 67 17 117/75 08/14/22 13:45 74 08/14/22 12:30 72 24 134/81 08/14/22 12:00 71 17 128/78 08/14/22 11:30 72 18 128/88 08/14/22 11:25 75 20 135/82 08/14/22 10:30 63 21 08/14/22 10:30 135/81 08/14/22 10:00 137/94 08/14/22 09:32 74 22 08/14/22 09:32 133/81 08/14/22 09:21 80 22 08/14/22 09:21 122/82 08/14/22 09:22 80 08/14/22 09:35 76 16 133/81 08/14/22 09:22 35.6 C L 16 133/81 08/14/22 09:22 35.6 C L 70 16 122/82 Pulse Ox O2 Del Method 08/14/22 14:49 96 Room Air 08/14/22 14:00 96 05/22/23 13:54 93 08/14/22 13:00 97 08/14/22 13:45 08/14/22 12:30 98 08/14/22 12:00 95 08/14/22 11:30 95 08/14/22 11:25 94 08/14/22 10:30 90 08/14/22 10:30 08/14/22 10:00 08/14/22 09:32 95 08/14/22 09:32 08/14/22 09:21 95 08/14/22 09:21 08/14/22 09:22 08/14/22 09:35 95 Nasal Cannula 08/14/22 09:22 95 08/14/22 09:22 96 Laboratory Results Abnormal lab results 08/14/22 08/14/22 Range/Units 09:25 09:25 WBC 3.81 L (4.8-10.8) K/ul RBC 4.23 L (4.70-6.10) M/uL Hgb 13.0 L (14.0-18.0) g/dl Hct 39.2 L (42.0-52.0) % Plt Count 102 L (130-400) K/uL Lymph # (Auto) 0.57 L (1.2-3.4) K/uL BUN/Creatinine Ratio 20.2 H (10-20) Glucose 116 H (70-99(Fasting)) mg/dl Troponin I High Sens 34.3 H (0-20) pg/ml Diagnostic Findings MRI brain 08/14 - Unremarkable
[2022-08-14] MEDS ORDERED: INSULIN ASPART PER UNIT CHARGE SC SCH (18:00)
[2022-08-14] MEDS: VALSARTAN/SACUBITRIL 51/49 MG TAB PO SCH (20:45)
[2022-08-14] MEDS: INSULIN ASPART PER UNIT CHARGE SC SCH (20:46)
[2022-08-14] MEDS: carvediloL 12.5 MG TAB PO SCH (20:46)
[2022-08-14 20:47] LABS: Appearance Urine Clear (Clear); Bilirubin Urine Negative (Negative); Blood Urine Negative (Negative); Color Urine Yellow; Glucose Urine UA Negative (Negative); Ketones Urine Negative (Negative); Leukocyte Esterase Urine Negative (Negative); Nitrite Urine Negative (Negative); Protein Urine Negative (Negative); Specific Gravity Urine > 1.045 (1.000-1.030); Urobilinogen Urine Negative (Negative)
[2022-08-15 07:38] LABS: Basophils # (auto) 0.02 K/uL (0-0.2); Basophils % (auto) 0.5 %; Eosinophils % (auto) 2.5 %; Hematocrit (blood only) 39.4 % (42.0-52.0); Hemoglobin 13.2 g/dl (14.0-18.0); Immature Granulocytes # (auto) 0.01 K/uL (0.01-0.20); Immature Granulocytes % (auto) 0.3 %; Lymphocytes # (auto) 0.53 K/uL (1.2-3.4); Lymphocytes % (auto) 13.3 %; Mean Corpuscular Hgb Conc 33.5 g/dL (32.0-36.0); Mean Corpuscular Volume 92.5 fL (80.0-100.0); Mean Platelet Volume 10.3 fL (9.4-12.4); Monocytes % (auto) 7.5 %; Neutrophils # (auto) 3.04 K/uL (1.40-6.50); Neutrophils % (auto) 75.9 %; Platelet Count 103 K/uL (130-400); RDW Coefficient of Variation 13.2 % (11.5-14.5); RDW Standard Deviation 44.8 fL (36.4-46.3); Red Blood Count 4.26 M/uL (4.70-6.10)
[2022-08-15] MEDS: ACETAMINOPHEN 1,000 MG/100 ML VIAL IV PRN (07:54)
[2022-08-15] MEDS: INSULIN ASPART PER UNIT CHARGE SC SCH ×3 (07:55→16:53)
[2022-08-15] MEDS: carvediloL 12.5 MG TAB PO SCH ×2 (07:55→17:00)
[2022-08-15] MEDS: VALSARTAN/SACUBITRIL 51/49 MG TAB PO SCH (07:56)
[2022-08-15 08:00] LABS: BUN Creatinine Ratio 22.4 (10-20); Calcium 8.9 mg/dl (8.6-10.3); Creatinine Clr Calc Pharmacy 109.2 ml/min; Est GFR (African American) 108.2 ml/min; Est GFR (Non-African American) 93.3 ml/min; Magnesium 1.8 mg/dl (1.7-2.4); Potassium 4.2 mmol/L (3.5-5.1)
[2022-08-15] MEDS ORDERED: DOXAZosin MESYLATE 4 MG TAB PO SCH (09:00)
[2022-08-15] MEDS ORDERED: ATORVASTATIN 40 MG TAB PO SCH (09:00)
[2022-08-15] MEDS ORDERED: SACCHAROMYCES BOULARDII 250 MG CAP PO SCH (09:00)
--- NOTE | 2022-08-15 13:12 | Pharmacy Report ---
Pharmacy Glycemic Sign Off Nt - Date of Service August 15, 2022 - Assessment & Plan ASSESSMENT: * Pharmacy was consulted by Lori Perez PA-C, on 08/14/22 for glycemic control and to write orders per [facility] inpatient glycemic control protocol. * Major changes made by pharmacy to antidiabetic regimen include: * Added Novolog ACHS coverage * Patient received 3 units of insulin total so far * BSGs ranging 84-123 mg/dl * Do not anticipate further changes in patient status that would quickly deteriorate glycemic control (i.e. patient to be NPO for upcoming procedure, steroids tapering, starting tube feedings, etc). * Please see recommendations for outpatient antidiabetic regimen below. PLAN FOR INPATIENT GLYCEMIC CONTROL: No changes needed to current regimen. * No need for basal insulin in this patient * Continue NovoLog per scale ACHS/Q6hrs while NPO * Goal range = 120-160 mg/dl * CF = 45 mg/dl/unit * CR = 1 unit for ever 15 g CHO consumed * If no plans for further contrast administration, would recommend discont inuation of Novolog and resuming home Metformin regimen of 1000 mg ER tabs PO BIDM * Pharmacy is signing off of glycemic consult and will no longer be making adju stments to inpatient regimen. Please feel free to re-consult if needed. Thank you.
--- NOTE | 2022-08-15 22:49 | Electroencephalogram ---
EEG Procedure Note Date of Service August 15, 2022 Start / End Times Start Time: 09:20 End Time: 09:40 Referring Physician Lori Perez PA-C History A 76 year old male with unresponsive episode. EEG performed for evaluation of epileptiform activity. Home Medication List Medication Instructions Recorded Confirmed Type Saccharomyces boulardii 250 mg 250 mg PO DAILY 30 days #30 caps 07/19/22 08/14/22 Rx capsule atorvastatin 40 mg tablet 40 mg PO QAM #90 tabs 07/21/22 08/14/22 Rx sacubitril 49 mg-valsartan 51 mg 1 tab PO BID #180 tabs 07/21/22 08/14/22 Rx tablet (Entresto) carvedilol 12.5 mg tablet 12.5 mg PO BIDM #180 tabs 07/24/22 08/14/22 Rx metformin 500 mg tablet,extended 1,000 mg PO QPM #180 tabs 07/25/22 08/14/22 Rx release 24 hr doxazosin 4 mg tablet 4 mg PO DAILY #30 tabs 08/10/22 08/14/22 Rx ipratropium 20 mcg-albuterol 100 See Rx Instructions .Route .COMPLEX 08/15/22 08/15/22 History mcg/actuation mist for inhalation (Combivent Respimat) lisinopril 20 mg tablet 20 mg PO DAILY 08/15/22 08/15/22 History Inpatient Medication List Discontinued Medications Atorvastatin Calcium (Atorvastatin 40 Mg Tab) 40 mg PO QAM [facility] Stop: 09/14/22 08:59 Last Admin: 08/15/22 07:56 Dose: 40 mg Documented By: MIHIR Carvedilol (Carvedilol 12.5 Mg Tab) 12.5 mg PO BIDM [facility] Stop: 09/13/22 16:59 Last Admin: 08/15/22 17:00 Dose: 12.5 mg Documented By: Admin: 08/15/22 07:55 Dose: 12.5 mg Documented By: Admin: 08/14/22 20:46 Dose: 12.5 mg Documented By: VANGIE Doxazosin Mesylate (Doxazosin Mesylate 4 Mg Tab) 4 mg PO DAILY [facility] Stop: 09/14/22 08:59 Last Admin: 08/15/22 07:55 Dose: 4 mg Documented By: MIHIR Tenecteplase 25 mg/ Syringe 5 mls @ 60 mls/min IV NOW ONE; Protocol Stop: 08/14/22 10:22 Last Admin: 08/14/22 13:41 Dose: Not Given Documented By: YESSY Sodium Chloride (Nss 1000ml) 1,000 mls @ 80 mls/hr IV .[id number] NILAY Stop: 08/15/22 03:18 Last Infusion: 08/15/22 04:04 Dose: 0 mls/hr Documented By: Admin: 08/14/22 15:34 Dose: 80 mls/hr Documented By: YONY Acetaminophen (Ofirmev) 1,000 mg in 100 mls @ 400 mls/hr IV Q8H PRN PRN Reason: pain, fever, headache Stop: 08/17/22 14:48 Last Infusion: 08/15/22 08:19 Dose: 0 mls/hr Documented By: Admin: 08/15/22 07:54 Dose: 400 mls/hr Documented By: Infusion: 08/14/22 15:49 Dose: 0 mls/hr Documented By: Admin: 08/14/22 15:34 Dose: 400 mls/hr Documented By: YONY Insulin Aspart (Insulin Aspart Per Unit Charge) 0 units SC ACHS [facility]; Protocol Stop: 09/13/22 20:59 Last Admin: 08/15/22 16:53 Dose: Not Given Documented By: Admin: 08/15/22 11:44 Dose: 1 units Documented By: MIHIR Co-signed By: KARLIE Admin: 08/15/22 07:55 Dose: 2 units Documented By: MIHIR Co-signed By: PEYTON Admin: 08/14/22 20:46 Dose: Not Given Documented By: VANGIE Ioversol (Optiray 320 500ml) 120 ml IV ONCE ONE Stop: 08/14/22 09:11 Last Admin: 08/14/22 09:11 Dose: 120 ml Documented By: SIDDHARTH Lorazepam (Lorazepam 2 Mg/1 Ml Vial) 1 mg IV NOW STA Stop: 08/14/22 13:43 Last Admin: 08/14/22 13:51 Dose: 1 mg Documented By: YESSY Miscellaneous (Stat Iv) 1 each N/A NOW STA Stop: 08/14/22 10:12 Last Admin: 08/14/22 13:41 Dose: Not Given Documented By: NMS Saccharomyces Boulardii (Saccharomyces Boulardii 250 Mg Cap) 250 mg PO DAILY NILAY Stop: 09/14/22 08:59 Last Admin: 08/15/22 07:56 Dose: 250 mg Documented By: DLN Sacubitril/Valsartan (Valsartan/Sacubitril 51/49 Mg Tab) 1 tab PO BID NILAY Stop: 09/13/22 20:59 Last Admin: 08/15/22 07:56 Dose: 1 tab Documented By: Admin: 08/14/22 20:45 Dose: 1 tab Documented By: SOUR BLEACHING PLEATER Sodium Chloride (Sodium Chloride 0.9% 10ml Flush) 20 ml IV NOW STA Stop: 08/14/22 10:12 Last Admin: 08/14/22 13:41 Dose: Not Given Documented By: NMS Description This is a 21 electrode EEG with a single channel dedicated to limited EKG. The electrodes were placed in accordance with the International 10-20 system. REPORT: At the onset of the EEG, the patient is awake. The background activity consist of 9 Hz, persistent, posteriorly dominant, moderate amplitude, symmetric and rhythmic activity that is reactive to eye opening. Anteriorly, it consist of a mixture of low voltage indeterminate activity and 15-25 Hz, persistent, low amplitude, symmetric and rhythmic activity. Stepwise intermittent photic stimulation (1-21 Hz) does not induce any abnormalities. Drowsiness is characterized by low amplitude mixed frequency activity, roving eye movements, and decreased eye blinking and muscle artifact. Interpretation IMPRESSION: This is a normal awake and drowsy routine EEG. There is no evidence of focal slowing or epileptiform activity.
== END 2022-08-15 18:28 | disposition home or self-care (01) | DRG 884 ==
LOC: ED 09:06 → 2E 13:42 → SUATTDRO 13:42 → 2E 14:25

== ENCOUNTER 2024-06-30 08:21 | Inpatient (IN) ==
--- NOTE | 2024-06-30 08:56 | Emergency Department Note ---
Impression & Plan Pulmonary embolism, Embolism, pulmonary with infarction, POSADAS (dyspnea on exertion) ED Provider Note NAME: LAKEISHA LEAL AGE: 78 SEX: M : 1945 ARRIVES VIA: Walk-In INFORMANT: Patient, ED PROVIDER(S): Jose Cruz Avendano DO CHIEF COMPLAINT: Chest pain HPI: The patient is a 78-year-old male who presented to the emergency department for an evaluation of chest pain. The patient describes right-sided chest pain that goes into his neck. The patient states the pain began overnight. The pain is worsened with movement as well as deep breathing. Patient denies having any abdominal pain. He denies having any back pain. He denies having any dysuria or frequency. He states has been compliant with his outpatient medications otherwise. ROS: See above HPI for pertinent positives & negatives. A total of 10 systems reviewed and were otherwise negative. PAST MEDICAL HISTORY: See Below PAST SURGICAL HISTORY: See Below FAMILY HISTORY: See Below SOCIAL HISTORY: See Below HOME MEDICATIONS: See Below ALLERGIES: See Below VITALS: See Below PHYSICAL EXAMINATION: GENERAL: Patient is awake alert in no acute distress patient is resting comfortably and showing no signs of anxiety EYES: The conjunctivae are clear. The pupils are round and reactive. EARS, NOSE, MOUTH AND THROAT: The nose is without any evidence of any deformity. Mucous membranes are moist. Tongue is midline. NECK: The neck is nontender and supple. RESPIRATORY: Normal respiratory effort is noted there is no evidence of wheezing rhonchi or rales CARDIOVASCULAR: Regular rate and rhythm noted there no murmurs rubs or gallops normal S1 normal S2. GASTROINTESTINAL: The abdomen is soft. Abdomen is nontender. BACK: There is no midline tenderness to palpation. There is no CVA a tenderness to percussion. MUSCULOSKELETAL/EXTREMITIES: There is no evidence of gross deformity full range of motion is noted in the hips and shoulders. SKIN: Skin is warm and dry. There is no significant pedal edema. There is no calf tenderness elicited. NEUROLOGIC: Patient is awake alert and oriented x3. Gait was steady. MEDICAL DECISION MAKING: The patient is a 78-year-old male who presented to the emergency department for an evaluation of dyspnea exertion as well as pleuritic chest pain. The patient was noted to have a possible infiltrate on chest x-ray. Given the degree and type of pain as well as the dyspnea on exertion for the laboratory and radiographic studies were obtained including a D-dimer. D-dimer was elevated which led to a CT of the chest. This appears to be consistent with pulmonary embolism as well as pulmonary infarct. I discussed the patient's laboratory and radiographic studies with him. He was started on heparin in the emergency department. [facility] have agreed to evaluate the patient in the emergency department for further management and disposition. Triage Nursing notes reviewed. Prior medical records reviewed Vital Signs: reviewed and remarkable for no significant abnormalities Differential diagnosis: Cardiac ischemia, aortic dissection, pulmonary embolism, pneumothorax, pneumonia, pericarditis, myocarditis, esophageal rupture, GERD, cholecystitis, pancreatitis, musculoskeletal, as well as other pathologies. ER treatment provided: See below Diagnostics interpreted by me: ECG: EKG was obtained in the emergency department. My interpretation is ventricular paced rhythm at 79 bpm. Venetie Ira PVC was noted. Left bundle branch block pattern was appreciated. This was compared to a tracing from August 14, 2022. No changes were noted. Cardiac Monitoring: An order was placed for continuous cardiac monitoring. The monitor shows a rate of 66 bpm with sinus rhythm. Laboratory studies: As stated above and show below. Imaging studies: See below. Radiographic imaging was reviewed by myself Consultation(s): I discussed this case with Dr. Solis who [facility] ED COURSE: Procedures: none Critical Care: I have personally spent greater than 40 minutes of critical care time in the direct management of this patient. This includes bedside care, interpretation of diagnostic studies, and testing, discussion with consultants, patient, and family members, and other required patient management activities. This 40 minutes is in excess of all separately billable procedures. 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 Family History Other No family history of adverse response to anesthesia Denies family history of Ovarian cancer Prostate cancer Myocardial infarction Breast cancer Colorectal cancer Social History Smoking Status: Former smoker Tobacco Type: Cigarettes Age Started Using Tobacco: 16; Age Quit Using Tobacco: 26; packs per day: 1; Second Hand Exposure: No; Do You Dip or Chew Tobacco: No; Hx Alcohol Use: Yes Alcohol type: beer Alcohol Intake Frequency: Monthly or Less Hx Substance Use: No Preferred Language: Telugu Communication Ability: Effective Visual Impairment: Limited Hearing Ability: Normal 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 Beliefs That Will Affect Care: None marital status: Current Living Situation: Spouse current occupational status: retired How many Children do You have: 1 Feels Safe at Home: Yes Childhood Exposure to Second-Hand Smoke: Yes Diet: regular caffeine: Yes during the past year weight has: remained stable Dental Care, Regularly: No Physical Activity Frequency: Daily Seatbelt Use: always Sunscreen Use: Yes Do you think of yourself as: straight/heterosexual Sexual Activity: has been sexually active, but not for at least 12 months Gender Identity: Male Assistive Devices: Glasses and Other Allergies Allergies Allergy/AdvReac Type Severity Reaction Status Date / Time No Known Allergies Allergy Unknown Verified 04/17/24 11:07 Home Meds Previous Rx's Medication Instructions Recorded doxazosin 4 mg tablet 4 mg PO DAILY #90 tabs 08/28/23 sacubitril 97 mg-valsartan 103 mg 1 tab PO BID #180 tabs 11/15/23 tablet (Entresto) dapagliflozin propanediol 10 mg 10 mg PO DAILY #90 tabs 01/02/24 tablet (Farxiga) carvedilol 25 mg tablet 25 mg PO BIDM #180 tabs 03/27/24 dutasteride 0.5 mg capsule 0.5 mg PO DAILY #90 caps 05/05/24 empagliflozin 10 mg tablet 10 mg PO DAILY #90 tabs 05/23/24 (Jardiance) metformin 500 mg tablet,extended 1,000 mg (2 x 500 mg) PO QPM #180 06/30/24 release 24 hr tabs Results & Data (ED) Vital Signs Vital Signs - 24 hr 06/30/24 08:38 06/30/24 08:51 06/30/24 09:00 Temperature 36.8 C Temperature Source Temporal Artery Scan Pulse Rate 65 63 60 Pulse Rate [Apical] Pulse Rhythm [Apical] Pulse Strength [Apical] Respiratory Rate 20 22 Respiratory Effort / Characteristics Non-Labored Respiratory Depth Normal Respiratory Pattern Blood Pressure 118/66 Blood Pressure [Left Arm] Blood Pressure Mean 83 Blood Pressure Mean [Left Arm] Pulse Oximetry 92 94 Oxygen Delivery Method Room Air Room Air Sepsis Recent Fever Within 48 Hours No Sepsis New/Unexplained Change in Mental Status No Sepsis Action Taken by Nursing No Action Required 06/30/24 09:01 06/30/24 09:01 06/30/24 11:00 Temperature Temperature Source Pulse Rate Pulse Rate [Apical] 66 66 Pulse Rhythm [Apical] Regular Pulse Strength [Apical] Normal Respiratory Rate 19 24 Respiratory Effort / Characteristics Non-Labored Spontaneous Respiratory Depth Normal Respiratory Pattern Regular Blood Pressure Blood Pressure [Left Arm] 130/62 Blood Pressure Mean Blood Pressure Mean [Left Arm] 84 Pulse Oximetry 94 94 96 Oxygen Delivery Method Room Air Room Air Room Air Sepsis Recent Fever Within 48 Hours Sepsis New/Unexplained Change in Mental Status Sepsis Action Taken by [facility] Medications Current Medication List: was personally reviewed by me Laboratory Data Attestation: I reviewed the patient's lab results. 06/30/24 09:00 06/30/24 09:00 Lab Results 06/30/24 06/30/24 Range/Units 09:00 09:03 WBC 5.56 (4.8-10.8) K/ul RBC 4.34 L (4.70-6.10) M/uL Hgb 13.3 L (14.0-18.0) g/dl Hct 40.8 L (42.0-52.0) % MCV 94.0 (80.0-100.0) fL MCH 30.6 (25.0-34.0) pg MCHC 32.6 (32.0-36.0) g/dL RDW Std Deviation 45.3 (36.4-46.3) fL RDW Coeff of Timbo 13.0 (11.5-14.5) % Plt Count 123 L (130-400) K/uL MPV 10.7 (9.4-12.4) fL Immature Gran % (Auto) 0.5 % Neut % (Auto) 81.4 % Lymph % (Auto) 7.6 % [place] % (Auto) 9.2 % Eos % (Auto) 0.9 % Baso % (Auto) 0.4 % Neut # (Auto) 4.53 (1.40-6.50) K/uL Lymph # (Auto) 0.42 L (1.20-3.40) K/uL King[place] # (Auto) 0.51 (0.11-0.59) K/uL Eos # (Auto) 0.05 (0.00-0.50) K/uL Baso # (Auto) 0.02 (0.00-0.20) K/uL Immature Gran # (Auto) 0.03 (0.01-0.20) K/uL PT 11.2 (9.0-12.0) Seconds INR 1.0 (0.9-1.1) APTT 29 (21-31) Seconds PTT Ratio 1.1 D-Dimer 1330 H* (0-500) ug/L FEU Sodium 140 (136-145) mmol/L Potassium 3.8 (3.5-5.1) mmol/L Chloride 107 (98-107) mmol/L Carbon Dioxide 27 (21-32) mmol/L Anion Gap 6 (3-11) BUN 14 (6-23) mg/dl Creatinine 0.95 (0.6-1.4) mg/dl Est Cr Clr Drug Dosing 76.8 ml/min eGFR 81.93 BUN/Creatinine Ratio 14.7 (10-20) Glucose 150 H (70-99(Fasting)) mg/dl Calcium 9.1 (8.6-10.3) mg/dl Magnesium 2.0 (1.7-2.4) mg/dl Total Bilirubin 1.0 (0.2-1.0) mg/dl AST 19 (13-39) U/L ALT 14 (7-52) U/L Alkaline Phosphatase 86 (34-104) U/L Troponin I High Sens 20.0 (0-20) pg/ml B-Natriuretic Peptide 614 H (0-100) pg/ml Total Protein 7.0 (6.0-8.3) gm/dl Albumin 4.1 (3.4-5.0) gm/dl Globulin 2.9 (2.5-4.0) gm/dl Albumin/Globulin Ratio 1.4 (0.9-2) SARS-CoV-2 (PCR) NEGATIVE (Negative) Influenza Type A (PCR) Negative (Neg) Influenza Type B (PCR) Negative (Neg) RSV (RT-PCR) Negative (Neg) Administered Medications Discontinued Medications Ioversol (Optiray 320 125ml) 118 ml IV ONCE ONE Stop: 06/30/24 10:44 Last Admin: 06/30/24 10:43 Dose: 118 ml Documented By: JAZIEL Imaging Data Attestation: I personally reviewed and interpreted this imaging study as follows: My Impression: 1 view chest x-ray was obtained in the emergency department. A wedge-shaped infiltrate was noted at the right base, final report below. Radiologist's Impression: Chest X-Ray 06/30/24 08:48 XR chest 1V portable CLINICAL HISTORY: Dyspnea COMPARISON STUDY: 08/14/2022 x-ray and CT of 06/18/2022 FINDINGS: Stable CABG. There is an interval left-sided cardiac pacemaker. There is stable cardiomegaly with mild pulmonary vascular congestion. Stable prominence of the left hilum, seen to represent prominence of the left pulmonary artery on the prior CT. There is interval mild stranding opacity at the right lung base. No other consolidation or pleural effusion. No pneumothorax. IMPRESSION: Atelectasis versus early pneumonia right lung base. ACT 112: Negative or not required by law. Electronically signed by: Antelmo Valladares M.D. 06/30/2024 9:14 AM Chest CTA 04/07/25 10:08 CT ANGIOGRAM OF THE CHEST CLINICAL HISTORY: Chest pain. Evaluate for pulmonary embolus. COMPARISON STUDY: Chest CT June 18, 2022. Chest radiograph performed earlier today. TECHNIQUE: Following the IV administration of 118 cc of Optiray 320, CT angiogram of the chest was performed from the upper abdomen to the thoracic inlet utilizing the pulmonary embolus protocol. Images are reviewed in the axial, sagittal, and coronal planes. 3-D MIPS images are created and assessed. IV contrast was administered without complication. A dose lowering technique was utilized adhering to the principles of ALARA. CT DOSE: 941.6 mGy.cm FINDINGS: A segmental pulmonary embolus within the right lower lobe on image 91 of 237 is present. There is also moderate ground glass opacity within the right lower lobe suggestive of a pulmonary infarct. Small right pleural effusion is present. No additional pulmonary emboli are identified. Note is again made of marked dilatation of the left pulmonary artery and moderate dilatation of the main pulmonary artery with normal caliber right pulmonary artery. The heart is moderately enlarged. There is no pericardial effusion. Left subclavian pacer is in place. There are median sternotomy wires. Prominent mediastinal lymph nodes are unchanged. No suspicious pulmonary nodules are present. The liver is cirrhotic. There is trace perihepatic ascites. Mild splenomegaly IMPRESSION: 1. Segmental pulmonary embolus within the right lower lobe with a probable right lower lobe pulmonary infarct and a small right pleural effusion. 2. Cardiomegaly. Dilatation of the left and main pulmonary arteries. This pattern raises the possibility of pulmonic stenosis. 3. Cirrhotic liver. Splenomegaly. Trace perihepatic ascites. ACT 112: Negative or not required by law. Electronically signed by: Jone Agarwal M.D. 06/30/2024 11:17 AM Discharge Plan Visit Data Chief Complaint: Shortness of Breath/Dyspnea Stated Complaint: CAN'T BREATHE ED Provider: Jose Cruz Avendano Discharge Problem: Pulmonary embolism, Embolism, pulmonary with infarction, POSADAS (dyspnea on exertion) Patient Disposition: Being Evaluated by Hospitalist Forms Stand Alone Forms: My [facility] Prescriptions Prescriptions: No Action doxazosin 4 mg tablet 4 mg PO DAILY Qty: 90 3RF Entresto 97-103 mg tablet 1 tab PO BID Qty: 180 3RF dapagliflozin propanediol [Farxiga] 10 mg tablet 10 mg PO DAILY Qty: 90 3RF carvedilol 25 mg tablet 25 mg PO BIDM Qty: 180 3RF dutasteride 0.5 mg capsule 0.5 mg PO DAILY Qty: 90 3RF Rx Instructions: take in am Jardiance 10 mg tablet 10 mg PO DAILY Qty: 90 3RF Hold Instructions: too expensive metformin 500 mg tablet extended release 24 hr 1,000 mg PO QPM Qty: 180 3RF Referrals Referrals: Lakshmi Wharton CRNP [Primary Care Provider] -
--- NOTE | 2024-06-30 09:15 | XRay Report ---
XR chest 1V portable CLINICAL HISTORY: Dyspnea COMPARISON STUDY: 08/14/2022 x-ray and CT of 06/18/2022 FINDINGS: Stable CABG. There is an interval left-sided cardiac pacemaker. There is stable cardiomegal y with mild pulmonary vascular congestion. Stable prominence of the left hilum, seen to represent pro minence of the left pulmonary artery on the prior CT. There is interval mild stranding opacity at the right lung base. No other consolidation or pleural effusion. No pneumothorax. IMPRESSION: Atelectasis versus early pneumonia right lung base. ACT 112: Negative or not required by law. Electronically signed by: Antelmo Valladares M.D. 06/30/2024 9:14 AM
[2024-06-30 09:31] LABS: Basophils # (auto) 0.02 K/uL (0.00-0.20); Basophils % (auto) 0.4 %; Eosinophils # (auto) 0.05 K/uL (0.00-0.50); Eosinophils % (auto) 0.9 %; Hematocrit (blood only) 40.8 % (42.0-52.0); Hemoglobin 13.3 g/dl (14.0-18.0); Immature Granulocytes # (auto) 0.03 K/uL (0.01-0.20); Immature Granulocytes % (auto) 0.5 %; Lymphocytes # (auto) 0.42 K/uL (1.20-3.40); Lymphocytes % (auto) 7.6 %; Mean Corpuscular Hemoglobin 30.6 pg (25.0-34.0); Mean Corpuscular Hgb Conc 32.6 g/dL (32.0-36.0); Mean Platelet Volume 10.7 fL (9.4-12.4); Monocytes # (auto) 0.51 K/uL (0.11-0.59); Monocytes % (auto) 9.2 %; Neutrophils # (auto) 4.53 K/uL (1.40-6.50); Neutrophils % (auto) 81.4 %; Platelet Count 123 K/uL (130-400); RDW Standard Deviation 45.3 fL (36.4-46.3); Red Blood Count 4.34 M/uL (4.70-6.10); White Blood Count 5.56 K/ul (4.8-10.8)
[2024-06-30 09:42] LABS: Albumin Globulin Ratio 1.4 (0.9-2); Albumin Level 4.1 gm/dl (3.4-5.0); BUN Creatinine Ratio 14.7 (10-20); Calcium 9.1 mg/dl (8.6-10.3); Creatinine Clr Calc Pharmacy 76.8 ml/min; Globulin 2.9 gm/dl (2.5-4.0); Potassium 3.8 mmol/L (3.5-5.1)
[2024-06-30 09:57] LABS: Partial Thromboplastin Ratio 1.1; Partial Thromboplastin Time 29 Seconds (21-31); Prothrombin Time 11.2 Seconds (9.0-12.0)
[2024-06-30 10:00] LABS: D Dimer 1330 ug/L FEU (0-500)
[2024-06-30 10:07] LABS: Influenza A virus by PCR Negative (Neg); Influenza B virus by PCR Negative (Neg); RSV by PCR Negative (Neg); SARS CoV2 RNA(COVID-19) Ceph NEGATIVE (Negative)
[2024-06-30] MEDS: OPTIRAY 320 125ml IV ONE (10:43)
--- NOTE | 2024-06-30 11:19 | CT Scan Report ---
CT ANGIOGRAM OF THE CHEST CLINICAL HISTORY: Chest pain. Evaluate for pulmonary embolus. COMPARISON STUDY: Chest CT June 18, 2022. Chest radiograph performed earlier today. TECHNIQUE: Following the IV administration of 118 cc of Optiray 320, CT angiogram of the chest was pe rformed from the upper abdomen to the thoracic inlet utilizing the pulmonary embolus protocol. Images are reviewed in the axial, sagittal, and coronal planes. 3-D MIPS images are created and assessed. I V contrast was administered without complication. A dose lowering technique was utilized adhering to the principles of ALARA. CT DOSE: 941.6 mGy.cm FINDINGS: A segmental pulmonary embolus within the right lower lobe on image 91 of 237 is present. Th ere is also moderate ground glass opacity within the right lower lobe suggestive of a pulmonary infar ct. Small right pleural effusion is present. No additional pulmonary emboli are identified. Note is a gain made of marked dilatation of the left pulmonary artery and moderate dilatation of the main pulmo nary artery with normal caliber right pulmonary artery. The heart is moderately enlarged. There is no pericardial effusion. Left subclavian pacer is in place. There are median sternotomy wires. Prominen t mediastinal lymph nodes are unchanged. No suspicious pulmonary nodules are present. The liver is ci rrhotic. There is trace perihepatic ascites. Mild splenomegaly IMPRESSION: 1. Segmental pulmonary embolus within the right lower lobe with a probable right lower lobe pulmonary infarct and a small right pleural effusion. 2. Cardiomegaly. Dilatation of the left and main pulmonary arteries. This pattern raises the possibil ity of pulmonic stenosis. 3. Cirrhotic liver. Splenomegaly. Trace perihepatic ascites. ACT 112: Negative or not required by law. Electronically signed by: Jone Agarwal M.D. 06/30/2024 11:17 AM
[2024-06-30] MEDS ORDERED: Heparin IV Adult Wt-Based Standard w/ INITIAL Bolus Protocol IV STA (11:20)
--- NOTE | 2024-06-30 11:28 | History & Physical Report ---
Date of Service June 30, 2024 Assessment & Plan (1) Embolism, pulmonary with infarction: (2) HFrEF (heart failure with reduced ejection fraction): (3) Cirrhosis of liver: (4) Diabetes mellitus, type 2: Sulema Francois is a 78-year-old male who presented on 06/30 for SOB/dyspnea and right- sided chest pain. Non-hypoxic/non-tachycardic on arrival. However, patient was found to have a RLL PE on chest CTA and started on heparin, with plan to transition to DOAC. #Unprovoked pulmonary embolism Chest CTA on arrival revealed a segmental pulmonary embolism within the RLL with probable RLL pulmonary infarct Heparin IV + bolus started in the ED No prior history of PEs-Unclear etiology on admission: No h/o clotting disorders, recent travel, prolonged immobilization, surgeries, malignancy, or recent leg trauma A/P CT with contrast ordered to assess for malignancy PSA ordered to r/o prostate cancer Echocardiogram ordered to assess for right heart strain Bilateral Doppler of the lower extremities ordered, pending Pain control with acetaminophen, morphine, and lidocaine patch PRN Continuous pulse oximetry #Chronic CMhXV-kfjhwvdxfrb-lfytpon euvolemic although BNP elevated at 600. With a h/o dilated Pulm arteries and remote open heart surgery for valve repair (?pulmonic valve) Last echocardiogram on 08/03/2023 revealed LVEF at 35% with moderate global hypokinesis. FOllows with Dr. Tijerina of [facility] Repeat echocardiogram (as above) Continue Jardiance, Entresto, COreg Strict I&O monitoring Daily weights #T2DM Last A1c at 6.3% on 01/29/2024 Hold metformin SSI with target BSG range 110-140mg/dL, CF 50, carb ratio 15 T2DM diet BSG ACHS Adjust regimen as needed AM A1c #Liver cirrhosis/thrombocytopenia-seen by GI in the past and decided he did not want any further surveillance or evaluation for cirrhosis or complications thereof LFTs and PT/INR okay on arrival Platelets low at 123 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 Per review of most recent GI note on 07/25/2023, patient declined further monitoring for cirrhosis including EGD, labs/MELD monitoring, or HCC surveillance No prior history of esophageal varices to his knowledge Acetaminophen okay up to 2000 mg daily #Anemia Chronic; Hgb 13.3 on arrival Clinically, no signs of active bleeding on physical exam Continue to monitor H&H while on heparin drip #COPD-Not currently on inhalers; IS, flutter valve #HTN-Continue carvedilol #BPH-Continue dutasteride, doxazosin Disposition: Admit to PCU telemetry Full code Heart healthy, low-sodium, T2DM diet ED PPx: IV heparin History of Present Illness Chief Complaint: Shortness of breath/dyspnea Primary Care Provider: DIEUDONNE Longo Alessandro is a 78-year-old male with PMH of T2DM, non-EtOH liver cirrhosis, CAD, pulmonary artery aneurysm, COPD, complete heart block s/p cardiac pacemaker, HTN, and gout. He presented on 06/30 for SOB and pain in his right rib cage/chest wall that began this morning. While patient normally has dyspnea on exertion at baseline, he reports he had developed SOB at rest this morning, as well as severe right chest and rib cage pain. He rates the pain in his rib cage 8/10 at present. Worse with movements and deep breaths. He will occasionally radiate up towards his neck with coughing and deep breaths. He did not take any pain medicine prior to coming into the ED. Patient also reports he has been coughing; dry cough, no sputum production or hemoptysis. He reports he is not currently on blood thinners. No prior history of DVT/PE. He denies any history of bleeding disorders or clotting disorders; no family history of DVT/PE, bleeding or clotting disorders to his knowledge. No recent injuries to his legs. No prior history of cancer, or family history of cancer to his knowledge. Patient is a former tobacco cigarette smoker but quit in 1971. He does not use supplemental oxygen at baseline or CPAP at night. No sick contacts. He did not take his regular morning medicines today; only recent change in medications was that he was started on Jardiance 2 weeks ago. He reports no prior history of issues with bleeding such as GI bleeds, strokes, or bleeding disorders. No recent long car drives or plane rides. He reports he has not been sedentary recently. No recent surgeries. In regard to his liver cirrhosis, he reports he has never had an EGD done, and is unsure if he has esophageal varices. Patient's vitals are stable at time of admission; SpO2 94% on RA. ED course: Heparin IV with bolus ROS: Patient endorses chills, lightheadedness, SOB at rest and with exertion, right- sided chest pain, pleuritic CP, dry cough, lower transverse abdominal pain, and ongoing diarrhea yellow in color,1-2x/day for several months Patient denies fever, night-sweats, syncope, orthopnea, chest palpitations, hemoptysis, nausea, vomiting, blood in the urine/stool, or numbness/tingling/redness/pain/swelling in the legs. Allergies Allergy/AdvReac Type Severity Reaction Status Date / Time No Known Allergies Allergy Unknown Verified 04/17/24 11:07 Home Medications Medication Instructions Recorded Confirmed Type doxazosin 4 mg tablet 4 mg PO DAILY #90 tabs 08/28/23 06/30/24 Rx sacubitril 97 mg-valsartan 103 mg 1 tab PO BID #180 tabs 11/15/23 06/30/24 Rx tablet (Entresto) dapagliflozin propanediol 10 mg 10 mg PO DAILY #90 tabs 01/02/24 06/30/24 Rx tablet (Farxiga) carvedilol 25 mg tablet 25 mg PO BIDM #180 tabs 03/27/24 06/30/24 Rx dutasteride 0.5 mg capsule 0.5 mg PO DAILY #90 caps 05/05/24 06/30/24 Rx empagliflozin 10 mg tablet 10 mg PO DAILY #90 tabs 05/23/24 06/30/24 Rx (Jardiance) metformin 500 mg tablet,extended 1,000 mg (2 x 500 mg) PO QPM #180 06/30/24 06/30/24 Rx release 24 hr tabs Past Med/Surg History Problem List (Updated 06/30/24 @ 12:26 by Evangelist Gutierrez PA-C) HFrEF (heart failure with reduced ejection fraction) POSADAS (dyspnea on exertion) (Acute) Embolism, pulmonary with infarction (Acute) Pulmonary embolism (Acute) 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 Pulmonary valve stenosis (Acute) Diabetes mellitus, type 2 (Chronic) Cirrhosis of liver (Chronic) CAD (coronary artery disease) (Chronic) Hypertension (Chronic) Gout (Chronic) Medical History Morbid obesity [place]at[place] Blood in stool Surgical History History of eye surgery left eye "cut retina open" History of open heart surgery 1971 @ [facility] "valve was growing shut, went in and opened it up"--no c ardiologist Family History Other No family history of adverse response to anesthesia Denies family history of Ovarian cancer Prostate cancer Myocardial infarction Breast cancer Colorectal cancer Social History Smoking Status: Former smoker Tobacco Type: Cigarettes Age Started Using Tobacco: 16; Age Quit Using Tobacco: 26; packs per day: 1; Second Hand Exposure: No; Do You Dip or Chew Tobacco: No; Hx Alcohol Use: Yes Alcohol type: beer Alcohol Intake Frequency: Monthly or Less Hx Substance Use: No Preferred Language: [place] Communication Ability: Effective Visual Impairment: Limited Hearing Ability: Normal Double Ending Machine Operator Required: No Beliefs That Will Affect Care: None marital status: Current Living Situation: Spouse current occupational status: retired How many Children do You have: 1 Feels Safe at Home: Yes Childhood Exposure to Second-Hand Smoke: Yes Diet: regular caffeine: Yes during the past year weight has: remained stable Dental Care, Regularly: No Physical Activity Frequency: Daily Seatbelt Use: always Sunscreen Use: Yes Do you think of yourself as: straight/heterosexual Sexual Activity: has been sexually active, but not for at least 12 months Gender Identity: Male Assistive Devices: Glasses and Other Review of Systems Review of Systems: See HPI above Physical Exam Physical Exam: General: Moderate distress secondary to right-sided rib pain; anxious; at bedside; non-toxic appearing; well-nourished; cooperative; SpO2 94% on RA HEENT: normocephalic, atraumatic; no scleral icterus; PERRLA; vision and hearing grossly intact Neck: supple; trachea midline Skin: warm, dry without signs of tenting; no cyanosis; no rashes, bruising, lesions, or erythema noted CV: chest wall is tender to palpation on the right rib cage; RRR; S1/S2 normal; no murmurs/rubs/gallops; pulses intact and symmetric at radial, DP, and PT Lungs: no acute respiratory distress; symmetrical chest wall expansion; clear breath sounds across all lung torres w/o adventitious sounds; no wheezing ABD: Soft, NTP; BS present; no rebound/guarding; no distention MSK: no tics or fasciculations; no edema noted in the LEs b/l, nonerythematous Neuro: A&Ox3; normal mood and affect; fluent speech; no focal deficits; sensation intact and symmetric in lower extremities bilaterally Results & Data Results & Data Vital Signs (Past 12 Hours) Vital Signs Temp Pulse Pulse Resp BP BP Pulse Ox 06/30/24 09:01 66 19 130/62 94 06/30/24 09:01 94 06/30/24 09:00 60 22 94 06/30/24 08:51 63 06/30/24 08:38 36.8 C 65 20 118/66 92 O2 Del Method 06/30/24 09:01 Room Air 06/30/24 09:01 Room Air 06/30/24 09:00 Room Air 06/30/24 08:51 06/30/24 08:38 Room Air Laboratory Results Abnormal lab results 06/30/24 Range/Units 09:00 RBC 4.34 L (4.70-6.10) M/uL Hgb 13.3 L (14.0-18.0) g/dl Hct 40.8 L (42.0-52.0) % Plt Count 123 L (130-400) K/uL Lymph # (Auto) 0.42 L (1.20-3.40) K/uL D-Dimer 1330 H* (0-500) ug/L FEU Glucose 150 H (70-99(Fasting)) mg/dl B-Natriuretic Peptide 614 H (0-100) pg/ml Diagnostic Findings Chest X-Ray 06/30/24 08:48 XR chest 1V portable CLINICAL HISTORY: Dyspnea COMPARISON STUDY: 08/14/2022 x-ray and CT of 06/18/2022 FINDINGS: Stable CABG. There is an interval left-sided cardiac pacemaker. There is stable cardiomegaly with mild pulmonary vascular congestion. Stable prominence of the left hilum, seen to represent prominence of the left pulmonary artery on the prior CT. There is interval mild stranding opacity at the right lung base. No other consolidation or pleural effusion. No pneumothorax. IMPRESSION: Atelectasis versus early pneumonia right lung base. ACT 112: Negative or not required by law. Electronically signed by: Antelmo Valladares M.D. 06/30/2024 9:14 AM Chest CTA 06/30/24 10:08 CT ANGIOGRAM OF THE CHEST CLINICAL HISTORY: Chest pain. Evaluate for pulmonary embolus. COMPARISON STUDY: Chest CT June 18, 2022. Chest radiograph performed earlier today. TECHNIQUE: Following the IV administration of 118 cc of Optiray 320, CT angiogram of the chest was performed from the upper abdomen to the thoracic inlet utilizing the pulmonary embolus protocol. Images are reviewed in the axial, sagittal, and coronal planes. 3-D MIPS images are created and assessed. IV contrast was administered without complication. A dose lowering technique was utilized adhering to the principles of ALARA. CT DOSE: 941.6 mGy.cm FINDINGS: A segmental pulmonary embolus within the right lower lobe on image 91 of 237 is present. There is also moderate ground glass opacity within the right lower lobe suggestive of a pulmonary infarct. Small right pleural effusion is present. No additional pulmonary emboli are identified. Note is again made of marked dilatation of the left pulmonary artery and moderate dilatation of the main pulmonary artery with normal caliber right pulmonary artery. The heart is moderately enlarged. There is no pericardial effusion. Left subclavian pacer is in place. There are median sternotomy wires. Prominent mediastinal lymph nodes are unchanged. No suspicious pulmonary nodules are present. The liver is cirrhotic. There is trace perihepatic ascites. Mild splenomegaly IMPRESSION: 1. Segmental pulmonary embolus within the right lower lobe with a probable right lower lobe pulmonary infarct and a small right pleural effusion. 2. Cardiomegaly. Dilatation of the left and main pulmonary arteries. This pattern raises the possibility of pulmonic stenosis. 3. Cirrhotic liver. Splenomegaly. Trace perihepatic ascites. ACT 112: Negative or not required by law. Electronically signed by: Jone Agarwal M.D. 06/30/2024 11:17 AM ECG Additional Comments: ECG revealed atrial paced rhythm with premature supraventricular complexes at 79 bpm; QTc 522 (caution use of QT prolonging agents) Code Status & VTE Plan Code Status Full code VTE Prophylaxis Plan VTE Prophylaxis will be ordered: Yes Supervising Physician Co-Signing Physician Notes RULA Supervision Note: I personally saw and examined the patient. I verified all dhillon points and agree with RULA Gutierrez with the following exceptions and/or additions: S-this patient is a 78-year-old male here with acute onset of worsening shortness of breath and right sided chest pain worse with deep inspiration. No fevers or chills, no radiation of pain, no leg swelling. No recent surgeries other than a minor dental procedure 3 weeks ago to repair a crown and fix the cavity. No long travel and not overly sedentary. No previous history of VTE personally or in the family. History and ROS otherwise reviewed as above O- Vitals reviewed Gen: AAOx3, NAD, obese HEENT: Anicteric sclerae, EOMI CV: RRR no mgr nl S1S2 Pulm: CTAB no wcr Abd: +BS soft NT ND no masses or hernias Ext: No edema Skin: No rashes, warm/dry Neuro: Full strength throughout CBC, BMP, LFTs, troponin, D-dimer reviewed CXR, CT angiogram chest reviewed A/P-this patient is a 78-year-old male here with a right lower lobe segmental PE, unprovoked. Check Dopplers, echo, CT abdomen/pelvis and PSA to look for underlying malignancy given history of cirrhosis Continue heparin drip and likely transition to Eliquis if no issues with bleeding overnight Pain control with morphine, Tylenol, lidocaine patch PG Care Time/CCT Total # of Minutes Spent Total Time Spent with Patient: Total time spent is greater than 50% in coordination of care (as documented) at patient's floor/unit and/or counseling patient: Coding [place] [address] INT INP/OBS CARE 3/75MIN Patient Type Established Medical Decision Making High Complexity Diagnoses Embolism, pulmonary with infarction I26.99 HFrEF (heart failure with reduced ejection fraction) I50.20 Cirrhosis of liver K74.60 Type 2 diabetes mellitus without complication, without long-term current use of insulin E11.9 Diabetes mellitus complication status: without complication Diabetes mellitus longterm insulin use: without termite control service representative use (4) Diabetes mellitus, type 2 Diabetes mellitus complication status: without complication Diabetes mellitus termite control service representative insulin use: without longterm use Qualified Code(s): E11.9 - Type 2 diabetes mellitus without complications
[2024-06-30] MEDS ORDERED: HEPARIN SOD (PORCINE) 1000 UNIT/ML IV ONE (11:36)
[2024-06-30] MEDS: HEPARIN SOD (PORCINE) 1000 UNIT/ML IV ONE (11:56)
[2024-06-30] MEDS: HEPARIN 25000 UNIT/500 ML D5W 25,000 UNITS/500 ML BAG IV SCH (11:56)
[2024-06-30] MEDS: LIDOCAINE 5% 1 PATCH TD STA (12:37)
[2024-06-30] MEDS: ACETAMINOPHEN 500 MG TAB PO STA (12:37)
[2024-06-30] MEDS: OPTIRAY 320 100ml IV ONE (13:19)
--- NOTE | 2024-06-30 13:37 | CT Scan Report ---
CT SCAN OF THE ABDOMEN AND PELVIS WITH IV CONTRAST CLINICAL HISTORY: Unprovoked pulmonary embolus. Evaluate for malignancy. COMPARISON STUDY: CT of the abdomen and pelvis July 17, 2022. TECHNIQUE: Following the IV administration of 93 cc of Optiray 320, CT scan of the abdomen and pelvi s is performed from the lung bases to the proximal femora. Images are reviewed in the axial, sagittal , and coronal planes. IV contrast was administered without complication. A dose lowering technique wa s utilized adhering to the principles of ALARA. CT DOSE: 1519.6 mGy.cm FINDINGS: Segmental pulmonary embolus within the lateral basal segment of the right lower lobe with a ssociated pulmonary infarct and small right pleural effusion are noted. These were shown on recent ch est CT. No pneumatosis, free air or portal venous gas is present. The liver is cirrhotic. Trace ascit es. No hepatic lesions are identified on portal venous phase exam. There is a gallstone within the ga llbladder. Splenomegaly is noted. There are small abdominal varices. The caliber and wall thickness o f small and large bowel are normal. There is sigmoid diverticulosis without evidence for acute divert iculitis. The appendix is normal. The adrenal glands, kidneys and pancreas are unremarkable. There is excreted contrast from recent contrast-enhanced chest CT. No abdominal or pelvic lymphadenopathy is present. The IVC and iliac veins are suboptimally opacified but no definite thrombus within these ves sels is identified. IMPRESSION: 1. No evidence for malignancy within the abdomen or pelvis by CT. 2. Cirrhotic liver with mild splenomegaly and small varices formation. Trace ascites. 3. Segmental pulmonary embolus within the right lower lobe with an associated pulmonary infarct and s mall right pleural effusion, as shown on recent chest CT. ACT 112: Negative or not required by law. Electronically signed by: Jone Agarwal M.D. 06/30/2024 1:36 PM
--- NOTE | 2024-06-30 13:52 | Ultrasound Report ---
BILATERAL LOWER EXTREMITY VENOUS DOPPLER CLINICAL HISTORY: Left leg pain. Evaluate for deep venous thrombus. COMPARISON STUDY: No previous studies for comparison. TECHNIQUE: Sonography of the deep venous system of the bilateral lower extremities was performed. Co mpression and augmentation were evaluated. FINDINGS: The bilateral common femoral, superficial femoral and popliteal veins were compressible. A ugmentation was normal. Flow was shown within the deep calf vessels. IMPRESSION: No evidence of deep venous thrombus within the bilateral lower extremities. ACT 112: Negative or not required by law. Electronically signed by: Jone Agarwal M.D. 06/30/2024 1:51 PM
[2024-06-30] MEDS ORDERED: GLUCOSE 10 TAB/TUBE PO PRN (14:16)
[2024-06-30] MEDS ORDERED: DEXTROSE 50% 50 ML SYRINGE IV PRN (14:16)
[2024-06-30] MEDS ORDERED: GLUCOSE 40% GEL 15 GM TUBE PO PRN (14:16)
[2024-06-30] MEDS ORDERED: GLUCAGON FOR INJ 1 MG VIAL SQ PRN (14:16)
[2024-06-30] MEDS ORDERED: ACETAMINOPHEN 500 MG TAB PO PRN (14:16)
[2024-06-30] MEDS ORDERED: CARBOHYDRATES FOR HYPOGLYCEMIA PO PRN (14:16)
[2024-06-30] MEDS ORDERED: MoRPHine SULFATE 2 MG/ML CARP IV PRN (14:16)
--- NOTE | 2024-06-30 14:46 | XCELERA ---
[id number] [id number]
--- NOTE | 2024-06-30 15:25 | Electrocardiogram Report ---
Test Reason : Blood Pressure : */* mmHG Vent. Rate : 79 BPM Atrial Rate : 125 BPM P-R Int : 126 ms QRS Dur : 156 ms QT Int : 456 ms P-R-T Axes : * 254 52 degrees QTcB Int : 522 ms AV dual-paced rhythm Premature ventricular complexes Abnormal ECG When compared with ECG of 14-Aug-2022 09:22, AV pacing is now present Confirmed by Stefano Prince ([id number]) on 06/30/2024 3:24:58 PM Referred By: REFERRED SELF Confirmed By: Stefano Prince
[2024-06-30 17:30] LABS: Appearance Urine Clear (Clear); Bacteria Urine Automated None Seen (None Seen); Bilirubin Urine Negative (Negative); Blood Urine Trace (Negative); Cast Urine Automated 0-2 /lpf (0-2); Color Urine Yellow; Epithelial Cell Urine Auto 0-2 /hpf (0-2); Glucose Urine UA 3+ (Negative); Ketones Urine Negative (Negative); Leukocyte Esterase Urine Negative (Negative); Nitrite Urine Negative (Negative); Protein Urine Negative (Negative); RBC Urine Automated 0-2 /hpf (0-2); Specific Gravity Urine > 1.045 (1.000-1.030); Urobilinogen Urine Negative (Negative); WBC Urine Automated 0-5 /hpf (0-5); pH Urine 5.5 (4.5-7.5)
[2024-06-30] MEDS: carvediloL 25 MG TAB PO SCH (17:36)
[2024-06-30] MEDS: INSULIN ASPART PER UNIT CHARGE SC SCH (17:37)
[2024-06-30 18:28] LABS: ANTI-Xa, UFH(UnfractionatedHep 0.65 IU/ml (0.3-0.7)
[2024-06-30] MEDS: VALSARTAN/SACUBITRIL 103/97MG TAB PO SCH (20:38)
[2024-07-01 06:27] LABS: Basophils # (auto) 0.02 K/uL (0.00-0.20); Basophils % (auto) 0.4 %; Eosinophils % (auto) 2.2 %; Hematocrit (blood only) 38.9 % (42.0-52.0); Hemoglobin 12.8 g/dl (14.0-18.0); Immature Granulocytes # (auto) 0.02 K/uL (0.01-0.20); Immature Granulocytes % (auto) 0.4 %; Lymphocytes # (auto) 0.61 K/uL (1.20-3.40); Lymphocytes % (auto) 13.6 %; Mean Corpuscular Hemoglobin 30.5 pg (25.0-34.0); Mean Corpuscular Hgb Conc 32.9 g/dL (32.0-36.0); Mean Corpuscular Volume 92.6 fL (80.0-100.0); Mean Platelet Volume 10.8 fL (9.4-12.4); Monocytes # (auto) 0.47 K/uL (0.11-0.59); Monocytes % (auto) 10.5 %; Neutrophils # (auto) 3.27 K/uL (1.40-6.50); Neutrophils % (auto) 72.9 %; Platelet Count 110 K/uL (130-400); RDW Standard Deviation 44.3 fL (36.4-46.3); White Blood Count 4.49 K/ul (4.8-10.8)
[2024-07-01 06:59] LABS: BUN Creatinine Ratio 16.7 (10-20); Calcium 8.5 mg/dl (8.6-10.3); Creatinine Clr Calc Pharmacy 86.5 ml/min; Potassium 3.9 mmol/L (3.5-5.1)
[2024-07-01 07:13] LABS: ANTI-Xa, UFH(UnfractionatedHep 0.44 IU/ml (0.3-0.7)
[2024-07-01 07:17] LABS: Estimated Average Glucose 120 mg/dl; Hemoglobin A1C 5.8 % (4.5-5.6)
[2024-07-01] MEDS: EMPAGLIFLOZIN 10 MG TAB PO SCH (08:24)
[2024-07-01] MEDS: FINASTERIDE 5 MG TAB PO SCH (08:24)
[2024-07-01] MEDS: DOXAZosin MESYLATE 4 MG TAB PO SCH (08:24)
[2024-07-01 12:30] VITALS: BP 117/72; PULSE 61; RESP 20; TEMP 97.3; O2SAT 94
[2024-07-01] MEDS ORDERED: APIXABAN 5 MG TABLET PO SCH ×2 (12:30→21:00)
[2024-07-01] MEDS: APIXABAN 5 MG TABLET PO ONE (12:36)
--- NOTE | 2024-07-01 12:37 | Discharge Summary ---
Discharge Summary Date of Service July 01, 2024 Principal Dx & Hospital Course #1 = Principal Diagnosis (1) Embolism, pulmonary with infarction: (2) HFrEF (heart failure with reduced ejection fraction): (3) Cirrhosis of liver: (4) Diabetes mellitus, type 2: Plan This pt is a 78-year-old male who presented on 06/30 for SOB/dyspnea and right- sided chest pain. Non-hypoxic/non-tachycardic on arrival. However, patient was found to have a RLL PE on chest CTA and started on heparin, with plan to transition to DOAC. #Unprovoked pulmonary embolism-Chest CTA on arrival revealed a segmental pulmonary embolism within the RLL with probable RLL pulmonary infarct. Bilat LE venous Dopplers neg for DVT and no UE edema. Had a recent minor dental procedure several weeks ago but otherwise no real provoking factors. CT abd/pel done given underlying cirrhosis to assess for HCC and/or other occult malignancy-negative for new issues. PSA normal. Had colonoscopy within the last year without CA. Unclear cause of PE. ECHO with reduced EF and +WMA similar to previous. Pain controlled and not hypoxic. Tolerated heparin gtt without bleeding issues and will dc to home on Eliquis 10mg po bid x 7 days followed by 5mg po bid- recommend at least 3 months of treatment. Consider f/u with Cardiology or PULM to see if his dilated Pulm arteries have anything to do with his PE. #Chronic GCjLA-[id number]-rsqytgv euvolemic although BNP elevated at 600, troponin neg. 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 FOllows with Dr. Tijerina of [facility] Continue Jardiance, Entresto, COreg Euvolemic F/u with Cardiology as outpt #M2DI-Aalx A1c at 6.3% on 01/29/2024 and now down further to 5.8%-well controlled -resume metformin 48 hrs after IV contrast on 07/02 #Liver cirrhosis/thrombocytopenia-seen by GI in the past and decided he did not want any further surveillance or evaluation for cirrhosis or complications thereof. LFTs and PT/INR okay on arrival.Platelets low at 123 but fairly stable from previous. No bleeding issues. 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 Per review of most recent GI note on 07/25/2023, patient declined further monitoring for cirrhosis including EGD, labs/MELD monitoring, or HCC surveillance No prior history of esophageal varices to his knowledge Acetaminophen okay up to 2000 mg daily #Anemia Chronic; Hgb 13.3 on arrival Clinically, no signs of active bleeding on physical exam Hgb stable at 12.8 on day of discharge FOllow for bleeding since starting anticoagulation #COPD-Not currently on inhalers; IS, flutter valve #HTN-Continue carvedilol #BPH-Continue dutasteride, doxazosin Disposition: doing well, stable for dc to home Notes For Next Care Provider Medication Changes From Visit Added Eliquis 10mg po bid x 7 days then 5mg po bid Admission HPI Per Admitting Provider Alessandro is a 78-year-old male with PMH of T2DM, non-EtOH liver cirrhosis, CAD, pulmonary artery aneurysm, COPD, complete heart block s/p cardiac pacemaker, HTN, and gout. He presented on 06/30 for SOB and pain in his right rib cage/chest wall that began this morning. While patient normally has dyspnea on exertion at baseline, he reports he had developed SOB at rest this morning, as well as severe right chest and rib cage pain. He rates the pain in his rib cage 8/10 at present. Worse with movements and deep breaths. He will occasionally radiate up towards his neck with coughing and deep breaths. He did not take any pain medicine prior to coming into the ED. Patient also reports he has been coughing; dry cough, no sputum production or hemoptysis. He reports he is not currently on blood thinners. No prior history of DVT/PE. He denies any history of bleeding disorders or clotting disorders; no family history of DVT/PE, bleeding or clotting disorders to his knowledge. No recent injuries to his legs. No prior history of cancer, or family history of cancer to his knowledge. Patient is a former tobacco cigarette smoker but quit in 1971. He does not use supplemental oxygen at baseline or CPAP at night. No sick contacts. He did not take his regular morning medicines today; only recent change in medications was that he was started on Jardiance 2 weeks ago. He reports no prior history of issues with bleeding such as GI bleeds, strokes, or bleeding disorders. No recent long car drives or plane rides. He reports he has not been sedentary recently. No recent surgeries. In regard to his liver cirrhosis, he reports he has never had an EGD done, and is unsure if he has esophageal varices. Patient's vitals are stable at time of admission; SpO2 94% on RA. ED course: Heparin IV with bolus ROS: Patient endorses chills, lightheadedness, SOB at rest and with exertion, right- sided chest pain, pleuritic CP, dry cough, lower transverse abdominal pain, and ongoing diarrhea yellow in color,1-2x/day for several months Patient denies fever, night-sweats, syncope, orthopnea, chest palpitations, hemoptysis, nausea, vomiting, blood in the urine/stool, or numbness/tingling/redness/pain/swelling in the legs. Discharge Exam Constitutional WD/WN, vitals as above Neck trachea midline, no thyromegaly Respiratory normal respiratory effort, lungs clear to auscultation Cardiovascular RRR, no murmur, no edema Chest (Breasts) Chest: normal inspection of chest Gastrointestinal (Abdomen) normal bowel sounds, soft, nontender, no hepatosplenomegaly Musculoskeletal Extremities: extremities normal to inspection; no cyanosis and no clubbing Skin no rashes, warm and dry Neurologic moves all extremities and awake; no focal motor deficits Psychiatric A+Ox3, euthymic affect Lymphatic no lymphedema Discharge Plan Discharge Items Patient Disposition: Home - Self-Care Reason For Visit: PULMONARY EMBOLISM Discharge Diagnosis: Pulmonary embolism Pulmonary infarct Condition on Discharge: Good Activity: As commented below Bathing: No limitations Exercise/Sports: Gradually increase as tolerated Non-emergency contact: Primary Care Provider Call non-emergency contact if: you have any medication questions, your symptoms worsen, your pain is not controlled and you have a fever Follow-up/Referrals: Lakshmi Wharton CRNP [Primary Care Provider] - (Follow up within 1-2 weeks) Diet: Carb Consistent or DM2, Heart Healthy and Low Sodium (2gm) Addtl Attending Provider Instructions: You will need to be on a blood thinner called Eliquis for 3 months for the blood clot in your lung. You will take Eliquis 10mg twice a day (2 pills twice a day) for 7 days and then DECREASE the dose to 5mg twice a day for the rest of the 3 months. Here are some guidelines about taking Eliquis: There is an increased risk of blood clots if you stop taking Eliquis. Do not stop taking Eliquis without talking to your doctor. There is an increased risk of bleeding. Eliquis can cause bleeding which can be serious and may lead to . This is because Eliquis is a blood thinner medicine (anticoagulant) that lowers blood clotting. During treatment with Eliquis you are likely to bruise more easily, and it may take longer for bleeding to stop. * If you ever cannot get bleeding to stop please report to the ER * If you have a bruise that is large/painful or swollen you should also be seen by a medical provider Call your doctor or get medical help right away if you or your child develop any of these signs or symptoms of bleeding: unexpected bleeding or bleeding that lasts a long time, such as: * Nose bleeds that happen often * unusual bleeding from the gums * bleeding that is severe or you cannot control * red, pink or brown urine * bright red or black stools (looks like tar) * cough up blood or blood clots * vomit blood or your vomit looks like coffee grounds If you have a fall and hit your head, please come to the ER and get checked out. Being on a blood thinner increases your risk of brain bleeding with falls. Avoid high risk activities, such as: * standing on tall ladders * riding motorcycles * anything where you are high risk for falls or trauma Avoid taking NSAIDs (pain medication) while you are taking a blood thinner. This includes: * Ibuprofen, Aleve Advil, Naproxen. * If you are ever unsure you can ask your doctor or pharmacist. * Tylenol is SAFE to take. If you have any new or worsening chest pain, fevers, or shortness of breath please return to the ER. Pending Studies at Discharge: No Stand-Alone Forms: My [facility] [employer], Smoking Cessation Medications and DC Order Prescriptions: New Eliquis 5 mg tablet 10 mg PO BID Qty: 94 0RF Rx Instructions: x 7 days then 5mg po bid Continued doxazosin 4 mg tablet 4 mg PO DAILY Qty: 90 3RF Entresto 97-103 mg tablet 1 tab PO BID Qty: 180 3RF carvedilol 25 mg tablet 25 mg PO BIDM Qty: 180 3RF dutasteride 0.5 mg capsule 0.5 mg PO DAILY Qty: 90 3RF Rx Instructions: take in am Jardiance 10 mg tablet 10 mg PO DAILY Qty: 90 3RF Hold Instructions: too expensive Held metformin 500 mg tablet extended release 24 hr 1,000 mg PO QPM Qty: 180 3RF Hold Instructions: Resume on 07/02/24. Discontinued dapagliflozin propanediol [Farxiga] 10 mg tablet 10 mg PO DAILY Qty: 90 3RF Discharge Orders: Discharge Order (Routine); Ordered 07/01/24 Ordered By: Rachna Solis Admission Data Admit Date/Time: 06/30/24 12:05 Attending Provider: Rachna Solis Admit Provider: Rachna Solis Primary Care Provider: Lakshmi Wharton Other Providers: Rachna Solis Hospital Stay Data Consultations 06/30/24 11:24 ED Decision to Admit Stat 06/30/24 11:35 ED Decision to Admit Stat Diagnostic Imagining Performed 06/30/24 10:08 CT angio chest PE protocol Stat 06/30/24 12:12 US venous doppler LE BI Stat 06/30/24 12:27 CT Abd and Pelvis [CT abd pelvis IV con only] Urgent ECHO Pending Results Patient Have Any Pending Studies at Discharge: No Discharge Instructions Given to Patient (Per Discharging Provider) You will need to be on a blood thinner called Eliquis for 3 months for the blood clot in your lung. You will take Eliquis 10mg twice a day (2 pills twice a day) for 7 days and then DECREASE the dose to 5mg twice a day for the rest of the 3 months. Here are some guidelines about taking Eliquis: There is an increased risk of blood clots if you stop taking Eliquis. Do not stop taking Eliquis without talking to your doctor. There is an increased risk of bleeding. Eliquis can cause bleeding which can be serious and may lead to . This is because Eliquis is a blood thinner medicine (anticoagulant) that lowers blood clotting. During treatment with Eliquis you are likely to bruise more easily, and it may take longer for bleeding to stop. * If you ever cannot get bleeding to stop please report to the ER * If you have a bruise that is large/painful or swollen you should also be seen by a medical provider Call your doctor or get medical help right away if you or your child develop any of these signs or symptoms of bleeding: unexpected bleeding or bleeding that lasts a long time, such as: * Nose bleeds that happen often * unusual bleeding from the gums * bleeding that is severe or you cannot control * red, pink or brown urine * bright red or black stools (looks like tar) * cough up blood or blood clots * vomit blood or your vomit looks like coffee grounds If you have a fall and hit your head, please come to the ER and get checked out. Being on a blood thinner increases your risk of brain bleeding with falls. Avoid high risk activities, such as: * standing on tall ladders * riding motorcycles * anything where you are high risk for falls or trauma Avoid taking NSAIDs (pain medication) while you are taking a blood thinner. This includes: * Ibuprofen, Aleve Advil, Naproxen. * If you are ever unsure you can ask your doctor or pharmacist. * Tylenol is SAFE to take. If you have any new or worsening chest pain, fevers, or shortness of breath please return to the ER. 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
== END 2024-07-01 14:02 | disposition home or self-care (01) | DRG 176 ==
LOC: ED 08:21 → 2S 12:05